=== PATIENT | female | born 1960 | race African-American/Black ===

== ENCOUNTER 2017-08-05 10:32 | Emergency (ER) | payer OTHER ==
[~2017-08-05] VITALS: Ht 190.5 cm; Wt 130.0 kg
[2017-08-05] MEDS ORDERED: PREDNISONE 20MG TABLET PO STA (12:08)
[2017-08-05] MEDS ORDERED: IPRATROPIUM BROMIDE (0.02%) 0.5MG/2.5ML NEB HHN STA ×2 (12:08→13:06)
[2017-08-05] MEDS ORDERED: ALBUTEROL (0.083%) 2.5MG/3ML NEB HHN STA ×2 (12:08→13:06)
[2017-08-05] MEDS ORDERED: KETOROLAC 60MG/2ML VIAL IM ONE (12:30)
[2017-08-05 13:53] VITALS: BP 150/98
== END 2017-08-05 13:55 | disposition home or self-care (01) ==
LOC: ER 10:38
DX: M25.571 Pain in right ankle and joints of right foot (principal); M79.671 Pain in right foot; J45.901 Unspecified asthma with (acute) exacerbation; I10 Essential (primary) hypertension; F12.10 Cannabis abuse, uncomplicated; Z88.0 Allergy status to penicillin; X50.1XXA Overexertion from prolonged static or awkward postures, initial encounter; Y93.89 Activity, other specified; Y92.89 Other specified places as the place of occurrence of the external cause; Y99.8 Other external cause status
CPT/HCPCS: 73600; 73620; 94640; 96372; 99284; J1885; J7512; J7611; Z7610

== ENCOUNTER 2018-03-04 11:34 | Emergency (ER) | payer OTHER ==
[~2018-03-04] VITALS: Ht 182.9 cm; Wt 131.0 kg
[2018-03-04] MEDS ORDERED: IPRATROPIUM BROMIDE (0.02%) 0.5MG/2.5ML NEB HHN STA (11:59)
[2018-03-04] MEDS ORDERED: PREDNISONE 20MG TABLET PO STA (11:59)
[2018-03-04] MEDS ORDERED: ALBUTEROL (0.083%) 2.5MG/3ML NEB HHN STA (11:59)
[2018-03-04] MEDS ORDERED: CEFTRIAXONE SODIUM 1 G/VIAL IM ONE (12:00)
[2018-03-04] MEDS ORDERED: LIDOCAINE HCL 1% 20ML VIAL (Pyxis) INJ INFIL ONE (12:30)
[2018-03-04] MEDS ORDERED: LIDOCAINE HCL/PF 1% 10 MG/ML 5ML VIAL IJ ONE (12:45)
[2018-03-04 13:52] VITALS: BP 165/87
== END 2018-03-04 14:18 | disposition home or self-care (01) ==
LOC: ER 12:00
DX: J45.901 Unspecified asthma with (acute) exacerbation (principal); L03.312 Cellulitis of back [any part except buttock and flank]; I10 Essential (primary) hypertension; F17.200 Nicotine dependence, unspecified, uncomplicated; Z88.0 Allergy status to penicillin
CPT/HCPCS: 71045; 94640; 96372; 99283; J0696; J3490; J7512; J7611; Z7610

== ENCOUNTER 2018-03-13 15:27 | Emergency (ER) | payer OTHER ==
[~2018-03-13] VITALS: Ht 188 cm; Wt 137.0 kg
[2018-03-13] MEDS ORDERED: IPRATROPIUM/ALBUTEROL 0.5-3(2.5)MG/3ML NEB HHN ONE (16:15)
[2018-03-13] MEDS ORDERED: KETOROLAC 60MG/2ML VIAL IM ONE (18:15)
[2018-03-13] MEDS ORDERED: ACETAMINOPHEN 500MG TABLET PO ONE (18:15)
[2018-03-13 18:44] VITALS: BP 138/84
== END 2018-03-13 18:45 | disposition home or self-care (01) ==
LOC: ER 15:27
DX: J45.901 Unspecified asthma with (acute) exacerbation (principal); M54.9 Dorsalgia, unspecified; I10 Essential (primary) hypertension; F17.200 Nicotine dependence, unspecified, uncomplicated; Z88.0 Allergy status to penicillin
CPT/HCPCS: 94640; 96372; 99283; J1885; J7620

== ENCOUNTER 2018-07-16 13:05 | Emergency (ER) | payer OTHER ==
[~2018-07-16] VITALS: Ht 190.5 cm; Wt 148.0 kg
[2018-07-16] MEDS ORDERED: ALBUTEROL (0.083%) 2.5MG/3ML NEB HHN STA (15:03)
[2018-07-16] MEDS ORDERED: METHYLPREDNISOLONE SOD SUCC 125 MG/2 ML VIAL IV STA (15:03)
[2018-07-16] MEDS ORDERED: IPRATROPIUM BROMIDE (0.02%) 0.5MG/2.5ML NEB HHN STA (15:03)
[2018-07-16] MEDS ORDERED: ENALAPRIL 2.5MG/2ML VIAL 2ML IV ONE (15:15)
[2018-07-16] MEDS ORDERED: MAGNESIUM 2 G PREMIX 50 ML IV ONE (15:15)
[2018-07-16] MEDS ORDERED: HYDRALAZINE 20MG/ML VIAL IV ONE (15:45)
[2018-07-16 16:33] LABS: BASOPHILS % 0.4 % (0.0-2.0); EOSINOPHILS % 0.3 % (0.0-5.0); HEMATOCRIT. 43.8 % (36.0-48.0); HEMOGLOBIN. 14.9 g/dL (12.0-16.0); LYMPHOCYTES % 22.5 % (20.0-50.0); MEAN CORPUSCULAR HEMOGLOBIN 32.2 pg (28.0-32.0); MEAN CORPUSCULAR VOLUME 94.8 fL (81.0-99.0); MONOCYTES % 7.3 % (2.0-8.0); NEUTROPHILS % 69.5 % (40.0-76.0); PLATELET 279 x1000/uL (130-400); RED BLOOD CELL COUNT 4.62 mill/uL (4.2-5.4); RED CELL DISTRIBUTION WIDTH 13.8 % (11.6-14.6)
[2018-07-16 16:36] LABS: CHLORIDE 103 mEq/L (98-107)
[2018-07-16 16:38] LABS: PROTHROMBIN TIME 9.9 sec (9.1-11.1)
[2018-07-16 18:33] VITALS: BP 163/97
== END 2018-07-16 19:13 | disposition home or self-care (01) ==
LOC: ER 17:01
DX: J45.901 Unspecified asthma with (acute) exacerbation (principal); I10 Essential (primary) hypertension; F12.10 Cannabis abuse, uncomplicated; I45.10 Unspecified right bundle-branch block; R73.9 Hyperglycemia, unspecified; E66.01 Morbid (severe) obesity due to excess calories; G89.29 Other chronic pain; M25.562 Pain in left knee; M25.561 Pain in right knee; Z68.41 Body mass index [BMI] 40.0-44.9, adult; Z88.0 Allergy status to penicillin
CPT/HCPCS: 36415; 71045; 73562; 80053; 83880; 84484; 85025; 85610; 85730; 93005; 94644; 96365; 96375; 99285; J0360; J2930; J3475; J3490; J7611

== ENCOUNTER 2018-09-09 07:12 | Inpatient (IN) | payer OTHER ==
[~2018-09-09] VITALS: Ht 170.2 cm; Wt 147.4 kg
[2018-09-09] MEDS ORDERED: IPRATROPIUM BROMIDE (0.02%) 0.5MG/2.5ML NEB HHN STA (07:49)
[2018-09-09] MEDS ORDERED: ALBUTEROL (0.083%) 2.5MG/3ML NEB HHN STA (07:49)
[2018-09-09] MEDS ORDERED: AZITHROMYCIN 500 MG TABLET PO STA (07:49)
[2018-09-09] MEDS ORDERED: METHYLPREDNISOLONE SOD SUCC 125 MG/2 ML VIAL IV STA (07:49)
[2018-09-09 08:12] LABS: CHLORIDE 96 mEq/L (98-107)
[2018-09-09 08:14] LABS: BASOPHILS % 0.4 % (0.0-2.0); HEMATOCRIT. 40.5 % (36.0-48.0); HEMOGLOBIN. 14.1 g/dL (12.0-16.0); LYMPHOCYTES % 14.3 % (20.0-50.0); MEAN CORPUSCULAR HEMOGLOBIN 32.1 pg (28.0-32.0); MEAN CORPUSCULAR VOLUME 92.2 fL (81.0-99.0); MEAN PLATELET VOLUME 8.6 fl (7.4-10.4); MONOCYTES % 11.9 % (2.0-8.0); NEUTROPHILS % 73.4 % (40.0-76.0); PLATELET 215 x1000/uL (130-400)
[2018-09-09] MEDS ORDERED: ASPIRIN 325MG TABLET PO NR (09:00)
[2018-09-09] MEDS ORDERED: POTASSIUM CHLORIDE 20MEQ TABLET SR PO NR (09:00)
[2018-09-09] MEDS ORDERED: IOHEXOL-350 100 ML BOTTLE ONE (10:22)
[2018-09-09 11:11] LABS: CLARITY URINE CLEAR (CLEAR); COLOR URINE YELLOW (YELLOW); KETONES URINE NEGATIVE (NEGATIVE); LEUKOCYTE ESTERASE URINE NEGATIVE (NEGATIVE); NITRITE URINE NEGATIVE (NEGATIVE); OCCULT BLOOD URINE NEGATIVE (NEGATIVE); PROTEIN URINE NEGATIVE (NEGATIVE); SPECIFIC GRAVITY URINE 1.006 (1.005-1.030); UROBILINOGEN URINE 0.2 E.U./dL (0.2-1.0)
[2018-09-09] MEDS ORDERED: IPRATROPIUM/ALBUTEROL 0.5-3(2.5)MG/3ML NEB HHN PRN (14:45)
[2018-09-09] MEDS ORDERED: ACETAMINOPHEN 325MG TABLET PO PRN (15:00)
[2018-09-09] MEDS ORDERED: ONDANSETRON HCL 4MG/2ML INJ IV PRN (15:00)
[2018-09-09] MEDS ORDERED: DOCUSATE SODIUM 100MG CAPSULE PO PRN (15:00)
[2018-09-09 17:49] LABS: CREATINE KINASE MB FRACTION 2.3 ng/mL (0.5-3.6)
[2018-09-09] MEDS: METHYLPREDNISOLONE SOD SUCC 40 MG/ML VIAL IV SCH (19:51)
[2018-09-09] MEDS: CLONIDINE 0.1MG TABLET PO PRN (19:55)
[2018-09-09] MEDS: IPRATROPIUM/ALBUTEROL 0.5-3(2.5)MG/3ML NEB HHN SCH (21:24)
[2018-09-09] MEDS ORDERED: ALBU6.7H INH (22:20)
[2018-09-09] MEDS ORDERED: AMLO10TA80 PO (22:20)
[2018-09-09 22:33] VITALS: BP 176/106
[2018-09-09 22:40] VITALS: BP 176/106
[2018-09-09] MEDS: LORAZEPAM 0.5MG TABLET PO PRN (22:50)
[2018-09-10] VITALS (7 sets, daily range): BP systolic 157–172; BP diastolic 87–105
[2018-09-10 00:55] LABS: CLARITY URINE CLEAR (CLEAR); COLOR URINE YELLOW (YELLOW); KETONES URINE NEGATIVE (NEGATIVE); LEUKOCYTE ESTERASE URINE NEGATIVE (NEGATIVE); NITRITE URINE NEGATIVE (NEGATIVE); OCCULT BLOOD URINE NEGATIVE (NEGATIVE); PROTEIN URINE NEGATIVE (NEGATIVE); SPECIFIC GRAVITY URINE 1.036 (1.005-1.030); UROBILINOGEN URINE 0.2 E.U./dL (0.2-1.0)
[2018-09-10 01:17] LABS: *AMPHETAMINES SCREEN URINE NEGATIVE (NEGATIVE); *BARBITURATES SCREEN URINE NEGATIVE (NEGATIVE); *BENZODIAZEPINES SCREEN URINE NEGATIVE (NEGATIVE)
[2018-09-10 01:18] LABS: CANNABINOID URINE SCREEN NEGATIVE (NEGATIVE); METHADONE URINE SCREEN NEGATIVE (NEGATIVE); OPIATES URINE SCREEN NEGATIVE (NEGATIVE); PHENCYCLIDINE URINE SCREEN NEGATIVE (NEGATIVE)
[2018-09-10 01:19] LABS: *COCAINE SCREEN URINE PRESUMTIVE POSITIVE (NEGATIVE)
[2018-09-10] MEDS: IPRATROPIUM/ALBUTEROL 0.5-3(2.5)MG/3ML NEB HHN SCH ×5 (01:39→20:00)
[2018-09-10] MEDS: CLONIDINE 0.1MG TABLET PO PRN ×3 (02:47→20:47)
[2018-09-10] MEDS: METHYLPREDNISOLONE SOD SUCC 40 MG/ML VIAL IV SCH ×3 (02:47→17:25)
[2018-09-10 09:52] LABS: BASOPHILS % 0.2 % (0.0-2.0); HEMATOCRIT. 40.9 % (36.0-48.0); HEMOGLOBIN. 13.7 g/dL (12.0-16.0); LYMPHOCYTES % 10.8 % (20.0-50.0); MEAN CORPUSCULAR VOLUME 95.8 fL (81.0-99.0); MEAN PLATELET VOLUME 9.2 fl (7.4-10.4); MONOCYTES % 4.9 % (2.0-8.0); NEUTROPHILS % 84.1 % (40.0-76.0); PLATELET 211 x1000/uL (130-400); RED BLOOD CELL COUNT 4.27 mill/uL (4.2-5.4); RED CELL DISTRIBUTION WIDTH 14.2 % (11.6-14.6)
[2018-09-10 10:05] LABS: CHLORIDE 95 mEq/L (98-107)
[2018-09-10 10:10] LABS: PHOSPHORUS 3.4 mg/dL (2.5-4.9)
[2018-09-10] MEDS ORDERED: SODIUM CHLORIDE 0.9% 1,000 ML IV ONE (11:15)
[2018-09-10 11:32] LABS: BG BASE EXCESS -1.6 mmol/L (-2.0-2.0); BG CARBOXYHEMOGLOBIN 0.5 % (0.5-1.5); BG DEOXYHEMOGLOBIN 5.9 % (0.0-5.0); BG FRACTION INSPIRED OXYGEN 21; BG HCO3 ACT 23.2 mmol/L (22.0-26.0); BG METHEMOGLOBIN 0.1 % (0.0-1.5); BG OXYGEN SATURATION 94.1 % (92.0-98.5); BG OXYHEMOGLOBIN 93.5 % (94.0-97.0); BG PCO2 39.5 mmHg (35.0-45.0); BG PH 7.386 (7.350-7.450); BG PO2 72.1 mmHg (75.0-100.0); BG SAMPLE SITE LEFT RADIAL; BG TOTAL HEMOGLOBIN 14.1 g/dL (12.0-18.0); BG VENT MODE ROOM AIR
[2018-09-10] MEDS ORDERED: DEXTROSE 50% WATER 50ML SYRINGE IV PRN (11:45)
[2018-09-10] MEDS: BLOOD SUGAR DIAGNOSTIC STRIP TEST SCH ×3 (12:04→20:36)
[2018-09-10] MEDS: INSULIN LISPRO 100 UNITS/ML SUBCUT SCH ×3 (12:10→20:48)
[2018-09-10] MEDS: LORAZEPAM 0.5MG TABLET PO PRN ×2 (12:10→18:57)
[2018-09-10] MEDS ORDERED: INSULIN LISPRO 100 UNITS/ML SUBCUT NR ×3 (13:57→22:00)
[2018-09-10] MEDS: SODIUM CHLORIDE 0.9% 1,000 ML IV SCH ×3 (17:01→23:31)
[2018-09-10] MEDS: HYDROCODONE/ACETAMINOPHEN 5/325MG TABLET PO PRN (20:47)
[2018-09-10] MEDS ORDERED: INSULIN GLARGINE UD 100 UNITS/ML SYR SUBCUT SCH (22:00)
[2018-09-11] VITALS (8 sets, daily range): BP systolic 123–170; BP diastolic 63–106
[2018-09-11] MEDS: METHYLPREDNISOLONE SOD SUCC 40 MG/ML VIAL IV SCH ×2 (01:28→10:35)
[2018-09-11] MEDS: SODIUM CHLORIDE 0.9% 1,000 ML IV SCH ×4 (01:28→20:36)
[2018-09-11] MEDS: BLOOD SUGAR DIAGNOSTIC STRIP TEST SCH ×4 (06:12→21:19)
[2018-09-11] MEDS: IPRATROPIUM/ALBUTEROL 0.5-3(2.5)MG/3ML NEB HHN SCH ×4 (07:52→19:49)
[2018-09-11] MEDS: HYDROCODONE/ACETAMINOPHEN 5/325MG TABLET PO PRN ×2 (08:52→18:16)
[2018-09-11] MEDS: CLONIDINE 0.1MG TABLET PO PRN ×2 (08:52→14:53)
[2018-09-11] MEDS: INSULIN LISPRO 100 UNITS/ML SUBCUT SCH ×4 (08:54→21:26)
[2018-09-11] MEDS: GUAIFENESIN-DM 200MG-20MG/10ML UDC PO PRN ×2 (13:22→21:26)
[2018-09-11] MEDS: BUDESONIDE 0.5MG/2ML NEB HHN SCH ×2 (15:16→19:49)
[2018-09-11] MEDS ORDERED: BUDESONIDE 0.5MG/2ML NEB ONE (15:51)
[2018-09-11] MEDS: DILTIAZEM HCL 60MG TABLET PO SCH (21:26)
[2018-09-11] MEDS ORDERED: INSULIN LISPRO 100 UNITS/ML SUBCUT NR (21:45)
[2018-09-11] MEDS ORDERED: INSULIN GLARGINE UD 100 UNITS/ML SYR SUBCUT SCH ×2 (22:00)
[2018-09-12] VITALS (8 sets, daily range): BP systolic 151–183; BP diastolic 84–102
[2018-09-12] MEDS: IPRATROPIUM/ALBUTEROL 0.5-3(2.5)MG/3ML NEB HHN SCH ×3 (00:16→20:04)
[2018-09-12] MEDS: CLONIDINE 0.1MG TABLET PO PRN ×3 (00:17→08:40)
[2018-09-12] MEDS: SODIUM CHLORIDE 0.9% 1,000 ML IV SCH (03:52)
[2018-09-12] MEDS: HYDROCODONE/ACETAMINOPHEN 5/325MG TABLET PO PRN ×3 (05:01→18:42)
[2018-09-12] MEDS: GUAIFENESIN-DM 200MG-20MG/10ML UDC PO PRN (05:02)
[2018-09-12] MEDS: BLOOD SUGAR DIAGNOSTIC STRIP TEST SCH ×4 (05:02→21:52)
[2018-09-12] MEDS: DILTIAZEM HCL 60MG TABLET PO SCH (05:02)
[2018-09-12 06:33] LABS: BASOPHILS % 0.3 % (0.0-2.0); HEMATOCRIT. 39.2 % (36.0-48.0); HEMOGLOBIN. 13.2 g/dL (12.0-16.0); LYMPHOCYTES % 22.9 % (20.0-50.0); MEAN CORPUSCULAR HEMOGLOBIN 31.7 pg (28.0-32.0); MEAN CORPUSCULAR VOLUME 93.8 fL (81.0-99.0); MEAN PLATELET VOLUME 9.2 fl (7.4-10.4); NEUTROPHILS % 65.8 % (40.0-76.0); PLATELET 212 x1000/uL (130-400); RED BLOOD CELL COUNT 4.17 mill/uL (4.2-5.4); RED CELL DISTRIBUTION WIDTH 14.1 % (11.6-14.6)
[2018-09-12 06:44] LABS: CHLORIDE 98 mEq/L (98-107)
[2018-09-12] MEDS ORDERED: PREDNISONE 20MG TABLET PO SCH (08:10)
[2018-09-12] MEDS: INSULIN LISPRO 100 UNITS/ML SUBCUT SCH ×4 (08:43→21:52)
[2018-09-12] MEDS ORDERED: TERBUTALINE SULFATE 1MG/ML VIAL SUBCUT NR (09:30)
[2018-09-12] MEDS: GUAIFENESIN/CODEINE 100-10MG/5ML UDC PO PRN ×2 (10:38→18:42)
[2018-09-12] MEDS ORDERED: LOSARTAN POTASSIUM 50 MG TABLET PO SCH (13:00)
[2018-09-12] MEDS: FUROSEMIDE 20MG TABLET PO SCH (13:13)
[2018-09-12] MEDS: DILTIAZEM HCL 90MG TABLET PO SCH ×2 (14:29→21:50)
[2018-09-12] MEDS: METHYLPREDNISOLONE SOD SUCC 40 MG/ML VIAL IV SCH (18:09)
[2018-09-12] MEDS: INSULIN GLARGINE UD 100 UNITS/ML SYR SUBCUT SCH (21:51)
[2018-09-13] VITALS: BP 182/97
[2018-09-13] MEDS: IPRATROPIUM/ALBUTEROL 0.5-3(2.5)MG/3ML NEB HHN SCH ×4 (01:33→20:08)
[2018-09-13 04:00] VITALS: BP 143/73
[2018-09-13] MEDS: DILTIAZEM HCL 90MG TABLET PO SCH ×3 (06:32→21:06)
[2018-09-13] MEDS: GUAIFENESIN/CODEINE 100-10MG/5ML UDC PO PRN (06:35)
[2018-09-13] MEDS: BLOOD SUGAR DIAGNOSTIC STRIP TEST SCH ×4 (06:49→21:08)
[2018-09-13 08:00] VITALS: BP 136/86
[2018-09-13] MEDS: FUROSEMIDE 20MG TABLET PO SCH (08:43)
[2018-09-13] MEDS: INSULIN LISPRO 100 UNITS/ML SUBCUT SCH ×7 (08:43→21:10)
[2018-09-13] MEDS: LOSARTAN POTASSIUM 50 MG TABLET PO SCH ×2 (08:44→21:05)
[2018-09-13] MEDS: HYDROCODONE/ACETAMINOPHEN 5/325MG TABLET PO PRN ×2 (09:10→21:07)
[2018-09-13] MEDS: METHYLPREDNISOLONE SOD SUCC 40 MG/ML VIAL IV SCH (09:26)
[2018-09-13] MEDS: INSULIN GLARGINE UD 100 UNITS/ML SYR SUBCUT SCH ×2 (10:30→21:09)
[2018-09-13 12:00] VITALS: BP 176/95
[2018-09-13 16:00] VITALS: BP 164/75
[2018-09-13] MEDS: PREDNISONE 20MG TABLET PO SCH (17:24)
[2018-09-13] MEDS: METFORMIN HCL 500MG TABLET PO SCH (18:55)
[2018-09-13] MEDS: GLIPIZIDE 5MG TABLET PO SCH (18:55)
[2018-09-13 20:00] VITALS: BP 132/81
[2018-09-13] MEDS: HYDRALAZINE HCL 50MG TABLET PO SCH (21:05)
[2018-09-13] MEDS: FLUTICASONE PROPIONATE 50MCG/SPRAY BOTTLE BOTHNSTRLS SCH (21:07)
[2018-09-14 00:12] VITALS: BP 149/89
[2018-09-14] MEDS: IPRATROPIUM/ALBUTEROL 0.5-3(2.5)MG/3ML NEB HHN SCH ×4 (02:15→20:11)
[2018-09-14 04:00] VITALS: BP 116/77
[2018-09-14] MEDS: DILTIAZEM HCL 90MG TABLET PO SCH ×3 (06:13→21:16)
[2018-09-14 08:00] VITALS: BP 162/99
[2018-09-14] MEDS: BLOOD SUGAR DIAGNOSTIC STRIP TEST SCH ×4 (08:08→21:28)
[2018-09-14] MEDS: INSULIN LISPRO 100 UNITS/ML SUBCUT SCH ×7 (08:08→21:17)
[2018-09-14] MEDS: FUROSEMIDE 20MG TABLET PO SCH (08:17)
[2018-09-14] MEDS: PREDNISONE 20MG TABLET PO SCH (08:17)
[2018-09-14] MEDS: LOSARTAN POTASSIUM 50 MG TABLET PO SCH ×2 (08:17→21:16)
[2018-09-14] MEDS: METFORMIN HCL 500MG TABLET PO SCH ×2 (08:17→18:04)
[2018-09-14] MEDS: GLIPIZIDE 5MG TABLET PO SCH ×2 (08:23→16:45)
[2018-09-14] MEDS: FLUTICASONE PROPIONATE 50MCG/SPRAY BOTTLE BOTHNSTRLS SCH ×2 (08:24→21:15)
[2018-09-14] MEDS: GUAIFENESIN/CODEINE 100-10MG/5ML UDC PO PRN (08:24)
[2018-09-14] MEDS: HYDROCODONE/ACETAMINOPHEN 5/325MG TABLET PO PRN (08:24)
[2018-09-14] MEDS: HYDRALAZINE HCL 50MG TABLET PO SCH ×2 (08:29→21:16)
[2018-09-14] MEDS: INSULIN GLARGINE UD 100 UNITS/ML SYR SUBCUT SCH ×3 (10:26→21:28)
[2018-09-14 12:00] VITALS: BP 178/96
[2018-09-14 16:00] VITALS: BP 155/95
[2018-09-14 20:00] VITALS: BP 170/96
[2018-09-15 00:31] VITALS: BP 145/80
[2018-09-15] MEDS: IPRATROPIUM/ALBUTEROL 0.5-3(2.5)MG/3ML NEB HHN SCH ×3 (02:02→14:21)
[2018-09-15 04:00] VITALS: BP 130/91
[2018-09-15] MEDS: DILTIAZEM HCL 90MG TABLET PO SCH ×2 (06:33→14:01)
[2018-09-15] MEDS: BLOOD SUGAR DIAGNOSTIC STRIP TEST SCH ×2 (06:37→12:40)
[2018-09-15 07:10] VITALS: BP 133/66
[2018-09-15] MEDS: FLUTICASONE PROPIONATE 50MCG/SPRAY BOTTLE BOTHNSTRLS SCH (08:30)
[2018-09-15] MEDS: FUROSEMIDE 20MG TABLET PO SCH (08:31)
[2018-09-15] MEDS: METFORMIN HCL 500MG TABLET PO SCH (08:31)
[2018-09-15] MEDS: LOSARTAN POTASSIUM 50 MG TABLET PO SCH (08:31)
[2018-09-15] MEDS: HYDRALAZINE HCL 50MG TABLET PO SCH (08:31)
[2018-09-15] MEDS: GLIPIZIDE 5MG TABLET PO SCH (08:32)
[2018-09-15] MEDS: INSULIN LISPRO 100 UNITS/ML SUBCUT SCH ×3 (08:34→13:04)
[2018-09-15] MEDS ORDERED: PREDNISONE 20MG TABLET PO SCH (09:00)
[2018-09-15] MEDS ORDERED: LINAGLIPTIN 5MG TABLET PO SCH (09:15)
[2018-09-15 09:27] LABS: CHLORIDE 92 mEq/L (98-107)
[2018-09-15 09:35] LABS: HEMATOCRIT. 47.1 % (36.0-48.0); HEMOGLOBIN. 15.6 g/dL (12.0-16.0); MEAN CORPUSCULAR VOLUME 93.3 fL (81.0-99.0); MEAN PLATELET VOLUME 9.2 fl (7.4-10.4); PLATELET 338 x1000/uL (130-400); RED BLOOD CELL COUNT 5.04 mill/uL (4.2-5.4); RED CELL DISTRIBUTION WIDTH 14.2 % (11.6-14.6)
[2018-09-15] MEDS: INSULIN GLARGINE UD 100 UNITS/ML SYR SUBCUT SCH (10:27)
[2018-09-15] MEDS ORDERED: BUDESONIDE 0.5MG/2ML NEB ONE (11:09)
[2018-09-15 12:00] VITALS: BP 120/57
[2018-09-15] MEDS ORDERED: INSULIN LISPRO 100 UNITS/ML SUBCUT SCH (12:40)
[2018-09-15 12:53] VITALS: BP 125/61
[2018-09-16 14:43] LABS: PLATELET ESTIMATE NORMAL
== END 2018-09-15 14:52 | disposition home or self-care (01) | DRG 816 ==
LOC: ER 07:59 → EDBEDREQ 10:30 → EDBEDREQTM 10:30 → 7WST 12:04 → EDBEDREQTM 12:06 → EDBEDREQ 12:06 → ENRESERV 19:33
PROVIDERS: ADMIT Internal Medicine; ATTEND Internal Medicine
DX: T40.5X1A Poisoning by cocaine, accidental (unintentional), initial encounter (principal); J96.00 Acute respiratory failure, unspecified whether with hypoxia or hypercapnia; E66.01 Morbid (severe) obesity due to excess calories; J68.0 Bronchitis and pneumonitis due to chemicals, gases, fumes and vapors; E87.6 Hypokalemia; I16.0 Hypertensive urgency; R07.89 Other chest pain; F14.10 Cocaine abuse, uncomplicated; E11.65 Type 2 diabetes mellitus with hyperglycemia; F17.200 Nicotine dependence, unspecified, uncomplicated; I10 Essential (primary) hypertension; Z60.2 Problems related to living alone; M71.21 Synovial cyst of popliteal space [Baker], right knee; T38.0X5A Adverse effect of glucocorticoids and synthetic analogues, initial encounter; Z79.899 Other long term (current) drug therapy; Y92.89 Other specified places as the place of occurrence of the external cause; Z91.19 Patient's noncompliance with other medical treatment and regimen; Z88.0 Allergy status to penicillin; Z88.8 Allergy status to other drugs, medicaments and biological substances; Z71.3 Dietary counseling and surveillance; Z71.51 Drug abuse counseling and surveillance of drug abuser
CPT/HCPCS: 36415; 36600; 71045; 71275; 80048; 80305; 82375; 82550; 82553; 82805; 82962; 83036; 83735; 83880; 84100; 84443; 84484; 93005; 93306; 93970; 94640; 96374; 99285; J1815; J2920; J2930; J3105; J7030; J7512; J7611; J7620; J7626; Q9967

== ENCOUNTER 2018-12-18 14:34 | Emergency (ER) | payer OTHER ==
[~2018-12-18] VITALS: Ht 190.5 cm; Wt 146.0 kg
[~2018-12-18 14:34] MED LIST: ALBU6.7H INH; AMLO10TA80 PO
[2018-12-18] MEDS ORDERED: IPRATROPIUM BROMIDE (0.02%) 0.5MG/2.5ML NEB HHN STA (16:22)
[2018-12-18] MEDS ORDERED: ALBUTEROL (0.083%) 2.5MG/3ML NEB HHN STA (16:22)
[2018-12-18] MEDS ORDERED: FUROSEMIDE 20MG/2ML VIAL IVP ONE (16:30)
[2018-12-18 16:42] LABS: BASOPHILS % 0.2 % (0.0-2.0); EOSINOPHILS % 0.1 % (0.0-5.0); HEMATOCRIT. 42.1 % (36.0-48.0); HEMOGLOBIN. 14.3 g/dL (12.0-16.0); LYMPHOCYTES % 8.4 % (20.0-50.0); MEAN CORPUSCULAR HEMOGLOBIN 31.7 pg (28.0-32.0); MEAN CORPUSCULAR VOLUME 93.3 fL (81.0-99.0); MEAN PLATELET VOLUME 9.6 fl (7.4-10.4); MONOCYTES % 4.1 % (2.0-8.0); NEUTROPHILS % 87.2 % (40.0-76.0); PLATELET 207 x1000/uL (130-400); RED BLOOD CELL COUNT 4.51 mill/uL (4.2-5.4); RED CELL DISTRIBUTION WIDTH 14.7 % (11.6-14.6)
[2018-12-18 16:46] LABS: CHLORIDE 100 mEq/L (98-107)
[2018-12-18] MEDS ORDERED: OXYCODONE HCL/ACETAMINOPHEN 5/325MG TABLET PO ONE (17:30)
[2018-12-18 18:20] VITALS: BP 158/88
== END 2018-12-18 18:30 | disposition home or self-care (01) ==
LOC: ER 14:34
DX: R60.0 Localized edema (principal); I87.2 Venous insufficiency (chronic) (peripheral); D72.829 Elevated white blood cell count, unspecified; E11.65 Type 2 diabetes mellitus with hyperglycemia; I11.0 Hypertensive heart disease with heart failure; I50.9 Heart failure, unspecified; J44.9 Chronic obstructive pulmonary disease, unspecified; I10 Essential (primary) hypertension; Z88.0 Allergy status to penicillin
CPT/HCPCS: 36415; 71045; 73610; 80053; 83880; 84484; 85025; 93005; 94640; 96374; 99284; J1940; J7611; Z7610

== ENCOUNTER 2019-01-01 11:03 | Emergency (ER) | payer OTHER ==
[~2019-01-01] VITALS: Ht 191.8 cm; Wt 160.1 kg
[2019-01-01 12:36] LABS: BASOPHILS % 0.5 % (0.0-2.0); EOSINOPHILS % 0.7 % (0.0-5.0); HEMATOCRIT. 40.1 % (36.0-48.0); HEMOGLOBIN. 13.7 g/dL (12.0-16.0); MEAN CORPUSCULAR HEMOGLOBIN 31.5 pg (28.0-32.0); MEAN CORPUSCULAR VOLUME 92.5 fL (81.0-99.0); MEAN PLATELET VOLUME 8.9 fl (7.4-10.4); MONOCYTES % 8.9 % (2.0-8.0); NEUTROPHILS % 68.9 % (40.0-76.0); PLATELET 245 x1000/uL (130-400); RED BLOOD CELL COUNT 4.33 mill/uL (4.2-5.4); RED CELL DISTRIBUTION WIDTH 14.6 % (11.6-14.6)
[2019-01-01 12:39] LABS: CLARITY URINE TURBID (CLEAR); KETONES URINE TRACE (NEGATIVE); LEUKOCYTE ESTERASE URINE 2+ (NEGATIVE); NITRITE URINE NEGATIVE (NEGATIVE); OCCULT BLOOD URINE NEGATIVE (NEGATIVE); PH URINE 5.5 (4.5-8.0); PROTEIN URINE 1+ (NEGATIVE); SPECIFIC GRAVITY URINE 1.027 (1.005-1.030)
[2019-01-01 12:43] LABS: COLOR URINE YELLOW (YELLOW)
[2019-01-01 12:46] LABS: CHLORIDE 105 mEq/L (98-107)
[2019-01-01] MEDS ORDERED: ALBUTEROL (0.083%) 2.5MG/3ML NEB HHN STA ×3 (12:47→17:02)
[2019-01-01] MEDS ORDERED: IPRATROPIUM BROMIDE (0.02%) 0.5MG/2.5ML NEB HHN STA (12:47)
[2019-01-01] MEDS ORDERED: FLUCONAZOLE 100MG TABLET PO ONE (13:00)
[2019-01-01] MEDS ORDERED: DEXAMETHASONE 10 MG/ML VIAL IV ONE (13:00)
[2019-01-01] MEDS ORDERED: IOHEXOL-350 100 ML BOTTLE ONE (15:39)
[2019-01-01] MEDS ORDERED: FUROSEMIDE 40MG/4ML VIAL IVP ONE (16:45)
[2019-01-01 18:44] VITALS: BP 147/81
== END 2019-01-01 19:07 | disposition home or self-care (01) ==
LOC: ER 11:48
DX: J45.901 Unspecified asthma with (acute) exacerbation (principal); J44.1 Chronic obstructive pulmonary disease with (acute) exacerbation; M71.21 Synovial cyst of popliteal space [Baker], right knee; M79.605 Pain in left leg; M79.604 Pain in right leg; R60.9 Edema, unspecified; E11.9 Type 2 diabetes mellitus without complications; I10 Essential (primary) hypertension; F17.200 Nicotine dependence, unspecified, uncomplicated; Z88.0 Allergy status to penicillin; Z88.6 Allergy status to analgesic agent
CPT/HCPCS: 36415; 71275; 80053; 81003; 83880; 84484; 85025; 85379; 93005; 93970; 94640; 96374; 96375; 99284; J1100; J1940; J7611; Q9967

== ENCOUNTER 2019-01-15 12:02 | Emergency (ER) | payer OTHER ==
[~2019-01-15] VITALS: Ht 167.6 cm; Wt 153.0 kg
[2019-01-15] MEDS ORDERED: ALBUTEROL (0.083%) 2.5MG/3ML NEB HHN STA (13:12)
[2019-01-15] MEDS ORDERED: IPRATROPIUM BROMIDE (0.02%) 0.5MG/2.5ML NEB HHN STA (13:12)
[2019-01-15 14:36] LABS: CHLORIDE 97 mEq/L (98-107)
[2019-01-15 14:39] LABS: PROTHROMBIN TIME 10.4 sec (9.6-11.0)
[2019-01-15 14:44] LABS: BASOPHILS % 0.4 % (0.0-2.0); EOSINOPHILS % 0.2 % (0.0-5.0); HEMATOCRIT. 40.7 % (36.0-48.0); HEMOGLOBIN. 14.3 g/dL (12.0-16.0); MEAN CORPUSCULAR VOLUME 93.6 fL (81.0-99.0); MEAN PLATELET VOLUME 10.2 fl (7.4-10.4); MONOCYTES % 8.1 % (2.0-8.0); NEUTROPHILS % 69.3 % (40.0-76.0); PLATELET 225 x1000/uL (130-400); RED BLOOD CELL COUNT 4.34 mill/uL (4.2-5.4); RED CELL DISTRIBUTION WIDTH 14.7 % (11.6-14.6)
[2019-01-15] MEDS ORDERED: FUROSEMIDE 40MG/4ML VIAL IVP ONE (15:45)
[2019-01-15] MEDS ORDERED: INSULIN REGULAR (HUMULIN R) 300UNITS/3ML SUBCUT ONE ×2 (15:49→19:15)
[2019-01-15] MEDS ORDERED: MAGNESIUM 2 G PREMIX 50 ML IV ONE (16:15)
[2019-01-15] MEDS ORDERED: METHYLPREDNISOLONE SOD SUCC 125 MG/2 ML VIAL IV ONE (16:15)
[2019-01-15] MEDS: SODIUM CHLORIDE 0.9% 1,000 ML IV NR ×2 (16:26→16:47)
[2019-01-16 00:01] VITALS: BP 175/95
== END 2019-01-16 00:01 | disposition short-term general hospital (02) ==
LOC: ER 12:02
DX: J44.1 Chronic obstructive pulmonary disease with (acute) exacerbation (principal); R60.0 Localized edema; R06.02 Shortness of breath; E87.6 Hypokalemia; D72.829 Elevated white blood cell count, unspecified; E11.65 Type 2 diabetes mellitus with hyperglycemia; I11.9 Hypertensive heart disease without heart failure; I87.2 Venous insufficiency (chronic) (peripheral); Z88.0 Allergy status to penicillin; Z88.6 Allergy status to analgesic agent
CPT/HCPCS: 36415; 71045; 80053; 82962; 83880; 84484; 85025; 85610; 93005; 93970; 94644; 96365; 96366; 96372; 96375; 99285; J1815; J1940; J2930; J3475; J7611; Z7610

== ENCOUNTER 2019-01-31 17:33 | Emergency (ER) | payer OTHER ==
[~2019-01-31] VITALS: Ht 190.5 cm; Wt 135.0 kg
[2019-01-31] MEDS ORDERED: IPRATROPIUM BROMIDE (0.02%) 0.5MG/2.5ML NEB HHN STA (23:42)
[2019-01-31] MEDS ORDERED: METHYLPREDNISOLONE SOD SUCC 125 MG/2 ML VIAL IV STA (23:42)
[2019-01-31] MEDS ORDERED: ALBUTEROL (0.083%) 2.5MG/3ML NEB HHN STA (23:42)
[2019-01-31] MEDS ORDERED: HYDROCODONE/ACETAMINOPHEN 5/325MG TABLET PO ONE (23:45)
[2019-01-31] MEDS ORDERED: MAGNESIUM 2 G PREMIX 50 ML IV ONE (23:45)
[2019-02-01 00:01] LABS: BASOPHILS % 0.3 % (0.0-2.0); EOSINOPHILS % 1.4 % (0.0-5.0); HEMATOCRIT. 38.4 % (36.0-48.0); HEMOGLOBIN. 13.2 g/dL (12.0-16.0); LYMPHOCYTES % 18.1 % (20.0-50.0); MEAN CORPUSCULAR HEMOGLOBIN 32.1 pg (28.0-32.0); MEAN CORPUSCULAR VOLUME 92.9 fL (81.0-99.0); MEAN PLATELET VOLUME 9.9 fl (7.4-10.4); MONOCYTES % 7.5 % (2.0-8.0); NEUTROPHILS % 72.7 % (40.0-76.0); PLATELET 249 x1000/uL (130-400); RED BLOOD CELL COUNT 4.13 mill/uL (4.2-5.4); RED CELL DISTRIBUTION WIDTH 13.9 % (11.6-14.6)
[2019-02-01 00:08] LABS: CHLORIDE 99 mEq/L (98-107)
[2019-02-01] MEDS ORDERED: POTASSIUM CHLORIDE 20MEQ TABLET SR PO STA (00:23)
[2019-02-01 02:30] VITALS: BP 154/79
== END 2019-02-01 02:43 | disposition home or self-care (01) ==
LOC: ER 17:33
DX: J44.1 Chronic obstructive pulmonary disease with (acute) exacerbation (principal); R60.0 Localized edema; M79.89 Other specified soft tissue disorders; J45.909 Unspecified asthma, uncomplicated; E11.9 Type 2 diabetes mellitus without complications; I11.9 Hypertensive heart disease without heart failure; Z88.0 Allergy status to penicillin; Z88.6 Allergy status to analgesic agent; Z79.899 Other long term (current) drug therapy
CPT/HCPCS: 36415; 71045; 80053; 83880; 84484; 85025; 93005; 94640; 96365; 96375; 99284; J2930; J3475; J7611

== ENCOUNTER 2019-02-06 16:15 | Inpatient (IN) | payer OTHER ==
[~2019-02-06] VITALS: Ht 167.6 cm; Wt 158.8 kg
[2019-02-06] MEDS ORDERED: FUROSEMIDE 40MG/4ML VIAL IV ONE (18:15)
[2019-02-06] MEDS ORDERED: ASPIRIN 81MG TABLET PO ONE (18:15)
[2019-02-06] MEDS ORDERED: NITROGLYCERIN OINT 1GM/INCH UDPKT TD ONE (18:15)
[2019-02-06 18:55] LABS: BASOPHILS % 0.5 % (0.0-2.0); EOSINOPHILS % 0.5 % (0.0-5.0); HEMATOCRIT. 40.2 % (36.0-48.0); HEMOGLOBIN. 13.6 g/dL (12.0-16.0); LYMPHOCYTES % 22.7 % (20.0-50.0); MEAN CORPUSCULAR HEMOGLOBIN 31.4 pg (28.0-32.0); MEAN CORPUSCULAR VOLUME 92.6 fL (81.0-99.0); MEAN PLATELET VOLUME 9.1 fl (7.4-10.4); MONOCYTES % 7.7 % (2.0-8.0); NEUTROPHILS % 68.6 % (40.0-76.0); PLATELET 250 x1000/uL (130-400); RED BLOOD CELL COUNT 4.34 mill/uL (4.2-5.4); RED CELL DISTRIBUTION WIDTH 14.8 % (11.6-14.6)
[2019-02-06 19:00] LABS: CHLORIDE 101 mEq/L (98-107)
[2019-02-06 19:02] LABS: PARTIAL THROMBOPLASTIN TIME 22.5 sec (23.4-31.0); PROTHROMBIN TIME 10.1 sec (9.6-11.0)
[2019-02-06] MEDS ORDERED: POTASSIUM CHLORIDE 20MEQ TABLET SR PO ONE (19:15)
[2019-02-06] MEDS ORDERED: ALBUTEROL (0.083%) 2.5MG/3ML NEB HHN STA (20:11)
[2019-02-06] MEDS ORDERED: METHYLPREDNISOLONE SOD SUCC 125 MG/2 ML VIAL IV STA (20:11)
[2019-02-06] MEDS ORDERED: IPRATROPIUM BROMIDE (0.02%) 0.5MG/2.5ML NEB HHN STA (20:11)
[2019-02-06] MEDS ORDERED: ONDANSETRON HCL 4MG/2ML INJ IV STA (21:19)
[2019-02-06] MEDS ORDERED: MORPHINE SULFATE 4 MG/ML CPJ (NOT FOR IM USE) IV STA (21:19)
[2019-02-06] MEDS ORDERED: IPRATROPIUM/ALBUTEROL 0.5-3(2.5)MG/3ML NEB HHN PRN (22:00)
[2019-02-06] MEDS ORDERED: ZOLPIDEM TARTRATE 5MG TABLET PO PRN (22:00)
[2019-02-06] MEDS ORDERED: DEXTROSE 50% WATER 50ML SYRINGE IV PRN (22:00)
[2019-02-06] MEDS ORDERED: ONDANSETRON HCL 4MG/2ML INJ IV PRN (22:00)
[2019-02-06] MEDS ORDERED: INSULIN GLARGINE UD 100 UNITS/ML SYR SUBCUT SCH (22:00)
[2019-02-06] MEDS ORDERED: INSULIN LISPRO 100 UNITS/ML SUBCUT NR (23:08)
[2019-02-06 23:31] LABS: CLARITY URINE CLOUDY (CLEAR); COLOR URINE YELLOW (YELLOW); KETONES URINE TRACE (NEGATIVE); LEUKOCYTE ESTERASE URINE NEGATIVE (NEGATIVE); NITRITE URINE NEGATIVE (NEGATIVE); OCCULT BLOOD URINE NEGATIVE (NEGATIVE); PROTEIN URINE TRACE (NEGATIVE); SPECIFIC GRAVITY URINE 1.033 (1.005-1.030); UROBILINOGEN URINE 0.2 E.U./dL (0.2-1.0)
[2019-02-06 23:59] LABS: *AMPHETAMINES SCREEN URINE NEGATIVE (NEGATIVE); *BARBITURATES SCREEN URINE NEGATIVE (NEGATIVE); *BENZODIAZEPINES SCREEN URINE NEGATIVE (NEGATIVE); *COCAINE SCREEN URINE PRESUMTIVE POSITIVE (NEGATIVE); CANNABINOID URINE SCREEN NEGATIVE (NEGATIVE); METHADONE URINE SCREEN NEGATIVE (NEGATIVE); OPIATES URINE SCREEN NEGATIVE (NEGATIVE); PHENCYCLIDINE URINE SCREEN NEGATIVE (NEGATIVE)
[2019-02-07] VITALS (7 sets, daily range): BP systolic 124–167; BP diastolic 62–103
[2019-02-07] MEDS ORDERED: INSULIN GLARGINE UD 100 UNITS/ML SYR SUBCUT SCH ×2 (01:00→22:00)
[2019-02-07] MEDS: BLOOD SUGAR DIAGNOSTIC STRIP TEST SCH ×4 (06:10→21:11)
[2019-02-07] MEDS: INSULIN LISPRO 100 UNITS/ML SUBCUT SCH ×7 (06:18→21:00)
[2019-02-07] MEDS ORDERED: INSULIN LISPRO 100 UNITS/ML SUBCUT NR (06:45)
[2019-02-07] MEDS: FUROSEMIDE 40MG/4ML VIAL IVP SCH ×2 (08:20→17:31)
[2019-02-07] MEDS: ENOXAPARIN 40MG/0.4ML SYR SUBCUT SCH (13:15)
[2019-02-07 17:28] LABS: BASOPHILS % 0.2 % (0.0-2.0); HEMATOCRIT. 38.6 % (36.0-48.0); HEMOGLOBIN. 13.4 g/dL (12.0-16.0); LYMPHOCYTES % 7.3 % (20.0-50.0); MEAN CORPUSCULAR VOLUME 91.9 fL (81.0-99.0); MEAN PLATELET VOLUME 9.4 fl (7.4-10.4); MONOCYTES % 7.2 % (2.0-8.0); NEUTROPHILS % 85.3 % (40.0-76.0); PLATELET 207 x1000/uL (130-400); RED CELL DISTRIBUTION WIDTH 14.3 % (11.6-14.6)
[2019-02-07 17:33] LABS: CHLORIDE 98 mEq/L (98-107)
[2019-02-07] MEDS ORDERED: BUDESONIDE 0.5MG/2ML NEB HHN SCH (18:00)
[2019-02-07] MEDS ORDERED: IPRATROPIUM/ALBUTEROL 0.5-3(2.5)MG/3ML NEB HHN SCH (18:00)
[2019-02-07] MEDS: AMLODIPINE 5MG TABLET PO SCH (21:11)
[2019-02-07] MEDS: INSULIN GLARGINE UD 100 UNITS/ML SYR SUBCUT SCH (21:12)
[2019-02-07] MEDS: ACETAMINOPHEN 325MG TABLET PO PRN (21:18)
[2019-02-08] MEDS: ENOXAPARIN 40MG/0.4ML SYR SUBCUT SCH (06:21)
[2019-02-08] MEDS: BLOOD SUGAR DIAGNOSTIC STRIP TEST SCH (06:22)
[2019-02-08] MEDS: INSULIN LISPRO 100 UNITS/ML SUBCUT SCH (06:50)
[2019-02-08] MEDS ORDERED: INSULIN LISPRO 100 UNITS/ML SUBCUT SCH (07:40)
[2019-02-08] MEDS: FUROSEMIDE 40MG/4ML VIAL IVP SCH (08:12)
[2019-02-08] MEDS: AMLODIPINE 5MG TABLET PO SCH (08:12)
[2019-02-08 09:00] VITALS: BP 134/94
[2019-02-08] MEDS: INSULIN GLARGINE UD 100 UNITS/ML SYR SUBCUT SCH (09:33)
[2019-02-08 09:36] LABS: BASOPHILS % 0.5 % (0.0-2.0); EOSINOPHILS % 0.8 % (0.0-5.0); HEMATOCRIT. 39.3 % (36.0-48.0); HEMOGLOBIN. 13.8 g/dL (12.0-16.0); MEAN CORPUSCULAR HEMOGLOBIN 32.4 pg (28.0-32.0); MEAN CORPUSCULAR VOLUME 92.5 fL (81.0-99.0); MEAN PLATELET VOLUME 9.5 fl (7.4-10.4); MONOCYTES % 9.9 % (2.0-8.0); NEUTROPHILS % 53.8 % (40.0-76.0); PLATELET 194 x1000/uL (130-400); RED BLOOD CELL COUNT 4.25 mill/uL (4.2-5.4); RED CELL DISTRIBUTION WIDTH 14.7 % (11.6-14.6)
[2019-02-08] MEDS: ACETAMINOPHEN 325MG TABLET PO PRN (09:42)
[2019-02-08 09:45] LABS: CHLORIDE 98 mEq/L (98-107)
[2019-02-08] MEDS ORDERED: POTASSIUM CHLORIDE 20MEQ TABLET SR PO NR (10:15)
[2019-02-08] MEDS ORDERED: POTASSIUM CHLORIDE INJ 40 MEQ in DEXT 5% WATER 500 ML IV NR (12:00)
== END 2019-02-08 11:37 | disposition left against medical advice (07) | DRG 816 ==
LOC: ER 16:38 → 8WST 21:17 → EDBEDREQ 21:19 → EDBEDREQTM 21:19 → ENRESERV 22:04
PROVIDERS: ADMIT Internal Medicine; ATTEND Internal Medicine
DX: T40.5X1A Poisoning by cocaine, accidental (unintentional), initial encounter (principal); J96.00 Acute respiratory failure, unspecified whether with hypoxia or hypercapnia; I50.33 Acute on chronic diastolic (congestive) heart failure; E11.65 Type 2 diabetes mellitus with hyperglycemia; E44.1 Mild protein-calorie malnutrition; J68.0 Bronchitis and pneumonitis due to chemicals, gases, fumes and vapors; I11.0 Hypertensive heart disease with heart failure; F14.90 Cocaine use, unspecified, uncomplicated; E87.6 Hypokalemia; T38.0X5A Adverse effect of glucocorticoids and synthetic analogues, initial encounter; F17.210 Nicotine dependence, cigarettes, uncomplicated; Z53.21 Procedure and treatment not carried out due to patient leaving prior to being seen by health care provider; J44.1 Chronic obstructive pulmonary disease with (acute) exacerbation; E66.01 Morbid (severe) obesity due to excess calories; I25.10 Atherosclerotic heart disease of native coronary artery without angina pectoris; Z79.899 Other long term (current) drug therapy; Z88.0 Allergy status to penicillin; Z88.8 Allergy status to other drugs, medicaments and biological substances; Y92.89 Other specified places as the place of occurrence of the external cause; Z68.43 Body mass index [BMI] 50.0-59.9, adult; Z71.89 Other specified counseling; Z71.6 Tobacco abuse counseling
CPT/HCPCS: 36415; 71045; 80048; 80305; 81003; 82962; 83880; 84484; 85379; 93005; 93306; 93970; 94640; 94644; 96374; 96375; 99285; J1650; J1815; J1940; J2270; J2405; J2930; J3480; J7060; J7611; J7620; J7626

== ENCOUNTER 2019-02-21 15:47 | Inpatient (IN) | payer OTHER ==
[~2019-02-21] VITALS: Ht 190.5 cm; Wt 157.4 kg
[2019-02-21] MEDS ORDERED: METHYLPREDNISOLONE SOD SUCC 125 MG/2 ML VIAL IV STA (16:30)
[2019-02-21] MEDS ORDERED: IPRATROPIUM BROMIDE (0.02%) 0.5MG/2.5ML NEB HHN STA ×2 (16:30→17:53)
[2019-02-21] MEDS ORDERED: ALBUTEROL (0.083%) 2.5MG/3ML NEB HHN STA ×2 (16:30→17:53)
[2019-02-21 16:49] LABS: BASOPHILS % 0.9 % (0.0-2.0); EOSINOPHILS % 0.5 % (0.0-5.0); HEMATOCRIT. 39.2 % (36.0-48.0); HEMOGLOBIN. 13.5 g/dL (12.0-16.0); MEAN CORPUSCULAR HEMOGLOBIN 32.3 pg (28.0-32.0); MEAN CORPUSCULAR VOLUME 93.7 fL (81.0-99.0); MEAN PLATELET VOLUME 9.1 fl (7.4-10.4); MONOCYTES % 7.5 % (2.0-8.0); NEUTROPHILS % 70.1 % (40.0-76.0); PLATELET 245 x1000/uL (130-400); RED BLOOD CELL COUNT 4.19 mill/uL (4.2-5.4); RED CELL DISTRIBUTION WIDTH 14.8 % (11.6-14.6)
[2019-02-21 16:55] LABS: CHLORIDE 107 mEq/L (98-107)
[2019-02-21 16:56] LABS: PROTHROMBIN TIME 10.1 sec (9.6-11.0)
[2019-02-21] MEDS ORDERED: DOXYCYCLINE HYCLATE 100MG CAPSULE PO ONE (18:00)
[2019-02-21] MEDS ORDERED: AMLODIPINE 10MG TABLET PO ONE (18:45)
[2019-02-21] MEDS ORDERED: ACETAMINOPHEN 500MG TABLET PO ONE (19:00)
[2019-02-21] MEDS ORDERED: LORAZEPAM 0.5MG TABLET PO PRN (22:30)
[2019-02-21] MEDS ORDERED: HYDROCODONE/ACETAMINOPHEN 5/325MG TABLET PO PRN (22:30)
[2019-02-21] MEDS ORDERED: ACETAMINOPHEN 325MG TABLET PO PRN (22:30)
[2019-02-21] MEDS ORDERED: ONDANSETRON HCL 4MG/2ML INJ IV PRN (22:30)
[2019-02-22 01:08] LABS: CREATINE KINASE MB FRACTION 1.7 ng/mL (0.5-3.6)
[2019-02-22 01:30] VITALS: BP 182/98
[2019-02-22] MEDS ORDERED: FUROSEMIDE 40MG/4ML VIAL IVP SCH (02:00)
[2019-02-22] MEDS: IPRATROPIUM/ALBUTEROL 0.5-3(2.5)MG/3ML NEB INH PRN ×2 (02:05→12:40)
[2019-02-22] MEDS ORDERED: DEXTROSE 50% WATER 50ML SYRINGE IV PRN (03:15)
[2019-02-22 04:00] VITALS: BP 173/91
[2019-02-22 05:38] LABS: CLARITY URINE CLEAR (CLEAR); COLOR URINE YELLOW (YELLOW); KETONES URINE NEGATIVE (NEGATIVE); LEUKOCYTE ESTERASE URINE NEGATIVE (NEGATIVE); NITRITE URINE NEGATIVE (NEGATIVE); OCCULT BLOOD URINE NEGATIVE (NEGATIVE); PROTEIN URINE NEGATIVE (NEGATIVE); SPECIFIC GRAVITY URINE 1.011 (1.005-1.030); UROBILINOGEN URINE 0.2 E.U./dL (0.2-1.0)
[2019-02-22 05:57] LABS: *AMPHETAMINES SCREEN URINE NEGATIVE (NEGATIVE); *BARBITURATES SCREEN URINE NEGATIVE (NEGATIVE); *BENZODIAZEPINES SCREEN URINE NEGATIVE (NEGATIVE); *COCAINE SCREEN URINE PRESUMTIVE POSITIVE (NEGATIVE)
[2019-02-22 05:58] LABS: CANNABINOID URINE SCREEN NEGATIVE (NEGATIVE); OPIATES URINE SCREEN NEGATIVE (NEGATIVE); PHENCYCLIDINE URINE SCREEN NEGATIVE (NEGATIVE)
[2019-02-22] MEDS: BLOOD SUGAR DIAGNOSTIC STRIP TEST SCH ×4 (06:42→20:50)
[2019-02-22] MEDS: INSULIN LISPRO 100 UNITS/ML SUBCUT SCH ×4 (06:47→20:53)
[2019-02-22 08:00] VITALS: BP 158/89
[2019-02-22 08:46] LABS: METHADONE URINE SCREEN NEGATIVE (NEGATIVE)
[2019-02-22 12:00] VITALS: BP 141/74
[2019-02-22 16:00] VITALS: BP 159/87
[2019-02-22 16:42] LABS: CREATINE KINASE 71 IU/L (26-192)
[2019-02-22 16:43] LABS: CREATINE KINASE MB FRACTION 2.5 ng/mL (0.5-3.6)
[2019-02-22 17:22] LABS: T4 FREE 0.76 ng/dL (0.76-1.46)
[2019-02-22] MEDS: FUROSEMIDE 40MG/4ML VIAL IVP SCH (18:07)
[2019-02-22] MEDS: METHYLPREDNISOLONE SOD SUCC 40 MG/ML VIAL IV SCH (18:07)
[2019-02-22] MEDS: AMLODIPINE 5MG TABLET PO SCH (18:08)
[2019-02-22 20:00] VITALS: BP 153/96
[2019-02-23] VITALS: BP_SYST 124; BP_DIAS 59; BP_DIAS 60
[2019-02-23] MEDS: METHYLPREDNISOLONE SOD SUCC 40 MG/ML VIAL IV SCH ×2 (00:24→09:31)
[2019-02-23 00:45] LABS: CREATINE KINASE MB FRACTION 2.1 ng/mL (0.5-3.6)
[2019-02-23 04:00] VITALS: BP 131/67
[2019-02-23] MEDS: FUROSEMIDE 40MG/4ML VIAL IVP SCH ×2 (06:04→16:59)
[2019-02-23] MEDS: BLOOD SUGAR DIAGNOSTIC STRIP TEST SCH ×4 (06:04→21:00)
[2019-02-23] MEDS: INSULIN LISPRO 100 UNITS/ML SUBCUT SCH ×5 (06:12→23:40)
[2019-02-23] MEDS ORDERED: INSULIN LISPRO 100 UNITS/ML SUBCUT ONE (07:15)
[2019-02-23 08:00] VITALS: BP 159/101
[2019-02-23 09:16] LABS: CREATINE KINASE MB FRACTION 1.5 ng/mL (0.5-3.6)
[2019-02-23] MEDS: METFORMIN HCL 500MG TABLET PO SCH ×2 (09:32→16:59)
[2019-02-23] MEDS: AMLODIPINE 5MG TABLET PO SCH (09:32)
[2019-02-23 12:00] VITALS: BP 147/96
[2019-02-23] MEDS: IPRATROPIUM/ALBUTEROL 0.5-3(2.5)MG/3ML NEB INH PRN (15:02)
[2019-02-23 16:00] VITALS: BP 154/62
[2019-02-23 20:00] VITALS: BP 177/68
[2019-02-23] MEDS: CLONIDINE 0.1MG TABLET PO PRN (21:31)
[2019-02-23] MEDS: IPRATROPIUM/ALBUTEROL 0.5-3(2.5)MG/3ML NEB HHN SCH (21:43)
[2019-02-23] MEDS ORDERED: INSULIN GLARGINE UD 100 UNITS/ML SYR SUBCUT SCH (23:30)
[2019-02-23] MEDS ORDERED: INSULIN LISPRO 100 UNITS/ML SUBCUT NR (23:30)
[2019-02-24] VITALS: BP 123/65
[2019-02-24] MEDS: IPRATROPIUM/ALBUTEROL 0.5-3(2.5)MG/3ML NEB HHN SCH ×4 (02:29→19:57)
[2019-02-24 04:00] VITALS: BP 134/70
[2019-02-24 06:05] LABS: BASOPHILS % 0.2 % (0.0-2.0); HEMATOCRIT. 37.3 % (36.0-48.0); HEMOGLOBIN. 12.9 g/dL (12.0-16.0); LYMPHOCYTES % 19.2 % (20.0-50.0); MEAN CORPUSCULAR VOLUME 92.8 fL (81.0-99.0); MEAN PLATELET VOLUME 9.5 fl (7.4-10.4); MONOCYTES % 11.2 % (2.0-8.0); NEUTROPHILS % 69.4 % (40.0-76.0); PLATELET 253 x1000/uL (130-400); RED BLOOD CELL COUNT 4.02 mill/uL (4.2-5.4); RED CELL DISTRIBUTION WIDTH 14.5 % (11.6-14.6)
[2019-02-24] MEDS: FUROSEMIDE 40MG/4ML VIAL IVP SCH (06:46)
[2019-02-24] MEDS: BLOOD SUGAR DIAGNOSTIC STRIP TEST SCH ×3 (06:46→21:48)
[2019-02-24] MEDS: METFORMIN HCL 500MG TABLET PO SCH ×2 (06:46→17:15)
[2019-02-24 06:47] LABS: CHLORIDE 94 mEq/L (98-107)
[2019-02-24] MEDS: INSULIN LISPRO 100 UNITS/ML SUBCUT SCH ×4 (06:59→21:49)
[2019-02-24] MEDS ORDERED: PREDNISONE 20MG TABLET PO SCH (09:00)
[2019-02-24] MEDS ORDERED: PREDNISOLONE 15 MG/5 ML ORAL SYRINGE PO SCH (09:00)
[2019-02-24] MEDS: AMLODIPINE 5MG TABLET PO SCH (12:05)
[2019-02-24] MEDS ORDERED: POTASSIUM CHLORIDE 20MEQ TABLET SR PO NR (13:15)
[2019-02-24] MEDS ORDERED: FUROSEMIDE 40MG/4ML VIAL IVP SCH (17:15)
[2019-02-24 20:00] VITALS: BP 136/79
[2019-02-24] MEDS: INSULIN GLARGINE UD 100 UNITS/ML SYR SUBCUT SCH (21:51)
[2019-02-24] MEDS ORDERED: INSULIN LISPRO 100 UNITS/ML SUBCUT NR (22:45)
[2019-02-25] VITALS: BP 137/79
[2019-02-25] MEDS: IPRATROPIUM/ALBUTEROL 0.5-3(2.5)MG/3ML NEB HHN SCH ×2 (01:26→10:55)
[2019-02-25 04:00] VITALS: BP 153/108
[2019-02-25] MEDS: BLOOD SUGAR DIAGNOSTIC STRIP TEST SCH ×2 (06:45→11:38)
[2019-02-25 07:37] LABS: CHLORIDE 97 mEq/L (98-107)
[2019-02-25 07:46] VITALS: BP 157/103
[2019-02-25] MEDS: METFORMIN HCL 500MG TABLET PO SCH (08:30)
[2019-02-25] MEDS: CLONIDINE 0.1MG TABLET PO PRN (08:32)
[2019-02-25] MEDS: AMLODIPINE 5MG TABLET PO SCH (08:32)
[2019-02-25] MEDS: INSULIN LISPRO 100 UNITS/ML SUBCUT SCH ×4 (08:34→11:47)
[2019-02-25] MEDS ORDERED: PREDNISONE 20MG TABLET PO SCH (09:00)
[2019-02-25] MEDS: INSULIN GLARGINE UD 100 UNITS/ML SYR SUBCUT SCH (10:13)
[2019-02-25 12:00] VITALS: BP 130/88
[2019-02-25 12:40] VITALS: BP 130/88
== END 2019-02-25 13:35 | disposition home or self-care (01) | DRG 816 ==
LOC: ER 15:47 → EDBEDREQTM 18:23 → EDBEDREQ 18:23 → ENRESERV 22:43 → 5WST 02-22 01:11
PROVIDERS: ADMIT Internal Medicine; ATTEND Internal Medicine
DX: T40.5X1A Poisoning by cocaine, accidental (unintentional), initial encounter (principal); J96.00 Acute respiratory failure, unspecified whether with hypoxia or hypercapnia; I50.43 Acute on chronic combined systolic (congestive) and diastolic (congestive) heart failure; J44.1 Chronic obstructive pulmonary disease with (acute) exacerbation; E11.65 Type 2 diabetes mellitus with hyperglycemia; E66.01 Morbid (severe) obesity due to excess calories; J45.901 Unspecified asthma with (acute) exacerbation; I11.0 Hypertensive heart disease with heart failure; M79.89 Other specified soft tissue disorders; I45.10 Unspecified right bundle-branch block; E78.5 Hyperlipidemia, unspecified; F17.210 Nicotine dependence, cigarettes, uncomplicated; J68.0 Bronchitis and pneumonitis due to chemicals, gases, fumes and vapors; F14.90 Cocaine use, unspecified, uncomplicated; T38.0X5A Adverse effect of glucocorticoids and synthetic analogues, initial encounter; Z91.19 Patient's noncompliance with other medical treatment and regimen; Z79.84 Long term (current) use of oral hypoglycemic drugs; Y92.89 Other specified places as the place of occurrence of the external cause; Z71.6 Tobacco abuse counseling; Z68.41 Body mass index [BMI] 40.0-44.9, adult
CPT/HCPCS: 36415; 71045; 78582; 80048; 80061; 80305; 81003; 82550; 82553; 82962; 83036; 83880; 84439; 84443; 84484; 85379; 93005; 94640; 96374; 99285; A9558; J1815; J1940; J2920; J2930; J7512; J7611; J7620

== ENCOUNTER 2019-04-18 15:36 | Inpatient (IN) | payer OTHER ==
[~2019-04-18] VITALS: Ht 193 cm; Wt 156.9 kg
[2019-04-18] MEDS: TOLNAFTATE 1% CREAM 15GM TOP SCH (22:00)
[2019-04-18] MEDS ORDERED: METHYLPREDNISOLONE SOD SUCC 125 MG/2 ML VIAL IV STA (22:27)
[2019-04-18] MEDS ORDERED: ALBUTEROL (0.083%) 2.5MG/3ML NEB HHN STA (22:27)
[2019-04-18] MEDS: METRONIDAZOLE 0.75% VAG GEL 70GM VG SCH (22:30)
[2019-04-18 23:03] LABS: EOSINOPHILS % 0.6 % (0.0-5.0); HEMATOCRIT. 41.1 % (36.0-48.0); HEMOGLOBIN. 14.1 g/dL (12.0-16.0); LYMPHOCYTES % 24.2 % (20.0-50.0); MEAN CORPUSCULAR HEMOGLOBIN 32.4 pg (28.0-32.0); MONOCYTES % 9.9 % (2.0-8.0); NEUTROPHILS % 64.3 % (40.0-76.0); PLATELET 226 x1000/uL (130-400); RED BLOOD CELL COUNT 4.37 mill/uL (4.2-5.4); RED CELL DISTRIBUTION WIDTH 14.2 % (11.6-14.6)
[2019-04-18 23:08] LABS: CHLORIDE 97 mEq/L (98-107)
[2019-04-19] MEDS ORDERED: INSULIN REGULAR (HUMULIN R) 300UNITS/3ML SUBCUT ONE (00:15)
[2019-04-19] MEDS ORDERED: SODIUM CHLORIDE 0.9% 1,000 ML IV ONE (00:15)
[2019-04-19] MEDS: CLOTRIMAZOLE 1% CREAM 30GM TOP SCH ×2 (02:46→21:00)
[2019-04-19] MEDS: METRONIDAZOLE 0.75% VAG GEL 70GM VG SCH (02:47)
[2019-04-19] MEDS: TOLNAFTATE 1% CREAM 15GM TOP SCH (02:52)
[2019-04-19] MEDS ORDERED: ZOLPIDEM TARTRATE 5MG TABLET PO PRN (08:15)
[2019-04-19] MEDS ORDERED: IPRATROPIUM/ALBUTEROL 0.5-3(2.5)MG/3ML NEB NEB PRN (08:15)
[2019-04-19] MEDS ORDERED: DOCUSATE SODIUM 100MG CAPSULE PO PRN (08:15)
[2019-04-19] MEDS ORDERED: ONDANSETRON HCL 4MG/2ML INJ IV PRN (08:15)
[2019-04-19] MEDS ORDERED: ACETAMINOPHEN 325MG TABLET PO PRN (08:15)
[2019-04-19] MEDS ORDERED: DEXTROSE 50% WATER 50ML SYRINGE IV PRN (08:15)
[2019-04-19] MEDS ORDERED: GUAIFENESIN 200MG/10ML SUGAR FREE UDC PO PRN (08:15)
[2019-04-19] MEDS ORDERED: NITROGLYCERIN 0.4MG TABLET SL SL PRN (08:15)
[2019-04-19] MEDS ORDERED: MAGNESIUM/ALUMINUM HYDROXIDE/SIMETHICONE 30ML UDC PO PRN (08:15)
[2019-04-19] MEDS: INSULIN LISPRO 100 UNITS/ML SUBCUT SCH ×6 (08:20→20:49)
[2019-04-19] MEDS: CLONIDINE 0.1MG TABLET PO PRN ×2 (09:08→14:31)
[2019-04-19] MEDS ORDERED: LIDOCAINE HCL/PF 1% 2ML VIAL ONE (09:27)
[2019-04-19 10:31] LABS: BG BASE EXCESS -0.7 mmol/L (-2.0-2.0); BG CARBOXYHEMOGLOBIN 0.8 % (0.5-1.5); BG DEOXYHEMOGLOBIN 5.4 % (0.0-5.0); BG FRACTION INSPIRED OXYGEN 21; BG METHEMOGLOBIN 0.2 % (0.0-1.5); BG OXYGEN SATURATION 94.5 % (92.0-98.5); BG OXYHEMOGLOBIN 93.6 % (94.0-97.0); BG PCO2 40.1 mmHg (35.0-45.0); BG PH 7.395 (7.350-7.450); BG PO2 72.8 mmHg (75.0-100.0); BG SAMPLE SITE RIGHT BRACHIAL; BG TOTAL HEMOGLOBIN 14.6 g/dL (12.0-18.0); BG VENT MODE ROOM AIR
[2019-04-19] MEDS: IPRATROPIUM/ALBUTEROL 0.5-3(2.5)MG/3ML NEB HHN SCH ×3 (10:40→20:51)
[2019-04-19] MEDS: AMLODIPINE 10MG TABLET PO SCH (11:00)
[2019-04-19 11:21] LABS: CHLORIDE 94 mEq/L (98-107)
[2019-04-19 12:00] VITALS: BP 162/91
[2019-04-19] MEDS: BLOOD SUGAR DIAGNOSTIC STRIP TEST SCH ×3 (13:00→20:50)
[2019-04-19 13:07] VITALS: BP 162/91
[2019-04-19] MEDS: ASCORBIC ACID 500 MG TABLET PO SCH ×2 (14:32→20:48)
[2019-04-19] MEDS: GUAIFENESIN/DM 600MG/30MG ER TAB 12HR PO SCH ×2 (14:32→20:48)
[2019-04-19] MEDS: FAMOTIDINE 20MG TABLET PO SCH ×2 (14:32→20:48)
[2019-04-19] MEDS: ZINC SULFATE 220 MG ( 50 ) CAPSULE PO SCH (14:32)
[2019-04-19] MEDS: ENOXAPARIN 40MG/0.4ML SYR SUBCUT SCH (14:32)
[2019-04-19] MEDS: ASPIRIN 325MG EC TABLET PO SCH (14:32)
[2019-04-19] MEDS ORDERED: FURO-151 PO (15:13)
[2019-04-19 16:00] VITALS: BP 114/81
[2019-04-19] MEDS: LEVOFLOXACIN 500MG PREMIX 100 ML IV SCH (17:39)
[2019-04-19 20:00] VITALS: BP 125/72
[2019-04-19] MEDS: INSULIN GLARGINE UD 100 UNITS/ML SYR SUBCUT SCH (23:18)
[2019-04-20] VITALS: BP 130/73
[2019-04-20] MEDS: IPRATROPIUM/ALBUTEROL 0.5-3(2.5)MG/3ML NEB HHN SCH ×5 (00:20→15:23)
[2019-04-20 04:00] VITALS: BP 133/77
[2019-04-20] MEDS: BLOOD SUGAR DIAGNOSTIC STRIP TEST SCH ×2 (06:20→14:29)
[2019-04-20] MEDS: ENOXAPARIN 40MG/0.4ML SYR SUBCUT SCH (06:34)
[2019-04-20 08:00] VITALS: BP 152/98
[2019-04-20] MEDS: INSULIN LISPRO 100 UNITS/ML SUBCUT SCH ×4 (08:14→14:31)
[2019-04-20] MEDS: TOLNAFTATE 1% CREAM 15GM TOP SCH (09:00)
[2019-04-20] MEDS: CLOTRIMAZOLE 1% CREAM 30GM TOP SCH (09:00)
[2019-04-20] MEDS: ASCORBIC ACID 500 MG TABLET PO SCH (09:34)
[2019-04-20] MEDS: FAMOTIDINE 20MG TABLET PO SCH (09:34)
[2019-04-20] MEDS: ZINC SULFATE 220 MG ( 50 ) CAPSULE PO SCH (09:34)
[2019-04-20] MEDS: GUAIFENESIN/DM 600MG/30MG ER TAB 12HR PO SCH (09:34)
[2019-04-20] MEDS: AMLODIPINE 10MG TABLET PO SCH (09:35)
[2019-04-20] MEDS: ASPIRIN 325MG EC TABLET PO SCH (09:36)
[2019-04-20] MEDS: INSULIN GLARGINE UD 100 UNITS/ML SYR SUBCUT SCH (11:40)
[2019-04-20 11:41] VITALS: BP 154/81
[2019-04-20 14:30] VITALS: BP 145/74
[2019-04-20] MEDS: LEVOFLOXACIN 500MG PREMIX 100 ML IV SCH (15:00)
[2019-04-20 16:06] VITALS: BP 145/74
[2019-04-20] MEDS ORDERED: INSULIN GLARGINE UD 100 UNITS/ML SYR SUBCUT SCH (22:00)
== END 2019-04-20 18:07 | disposition home or self-care (01) | DRG 140 ==
LOC: ER 15:36 → 6WST 04-19 05:24 → EDBEDREQDT 04-19 05:29 → EDBEDREQ 04-19 05:29 → EDBEDREQTM 04-19 05:29 → ENRESERV 04-19 07:07
PROVIDERS: ADMIT Internal Medicine; ATTEND Internal Medicine
DX: J44.1 Chronic obstructive pulmonary disease with (acute) exacerbation (principal); J96.91 Respiratory failure, unspecified with hypoxia; E11.65 Type 2 diabetes mellitus with hyperglycemia; I11.0 Hypertensive heart disease with heart failure; E66.01 Morbid (severe) obesity due to excess calories; I50.9 Heart failure, unspecified; E87.1 Hypo-osmolality and hyponatremia; Z79.4 Long term (current) use of insulin; Z79.899 Other long term (current) drug therapy; Z91.11 Patient's noncompliance with dietary regimen; Z91.14 Patient's other noncompliance with medication regimen; Z68.41 Body mass index [BMI] 40.0-44.9, adult
CPT/HCPCS: 36415; 36600; 71045; 80061; 82010; 82375; 82805; 82962; 83036; 83880; 84484; 93005; 93970; 94640; 96374; 99285; J1650; J1815; J1956; J2930; J3490; J7030; J7040; J7611; J7620

== ENCOUNTER 2019-05-18 10:22 | Inpatient (IN) | payer OTHER ==
[~2019-05-18] VITALS: Ht 190.5 cm; Wt 129.4 kg
[2019-05-18] MEDS ORDERED: ONDANSETRON HCL 4MG/2ML INJ IV STA (10:58)
[2019-05-18] MEDS ORDERED: METHYLPREDNISOLONE SOD SUCC 125 MG/2 ML VIAL IV STA (10:58)
[2019-05-18] MEDS ORDERED: MORPHINE SULFATE 4 MG/ML CPJ (NOT FOR IM USE) IV STA (10:58)
[2019-05-18] MEDS ORDERED: IPRATROPIUM/ALBUTEROL 0.5-3(2.5)MG/3ML NEB HHN ONE (11:00)
[2019-05-18] MEDS ORDERED: MAGNESIUM 2 G PREMIX 50 ML IV ONE (11:00)
[2019-05-18] MEDS ORDERED: LEVOFLOXACIN 500MG PREMIX 100 ML IV ONE (11:00)
[2019-05-18 11:29] LABS: BG BASE EXCESS 2.4 mmol/L (-2.0-2.0); BG CARBOXYHEMOGLOBIN 1.7 % (0.5-1.5); BG HCO3 ACT 26.9 mmol/L (22.0-26.0); BG METHEMOGLOBIN 0.2 % (0.0-1.5); BG OXYGEN SATURATION 95.9 % (92.0-98.5); BG OXYHEMOGLOBIN 94.1 % (94.0-97.0); BG PCO2 41.2 mmHg (35.0-45.0); BG PH 7.433 (7.350-7.450); BG SAMPLE SITE RIGHT RADIAL; BG TOTAL HEMOGLOBIN 15.6 g/dL (12.0-18.0); BG VENT MODE ROOM AIR
[2019-05-18 11:57] LABS: BASOPHILS % 0.5 % (0.0-2.0); EOSINOPHILS % 0.5 % (0.0-5.0); HEMATOCRIT. 45.9 % (36.0-48.0); HEMOGLOBIN. 15.6 g/dL (12.0-16.0); LYMPHOCYTES % 22.8 % (20.0-50.0); MEAN CORPUSCULAR HEMOGLOBIN 31.7 pg (28.0-32.0); MEAN CORPUSCULAR VOLUME 92.9 fL (81.0-99.0); MEAN PLATELET VOLUME 10.1 fl (7.4-10.4); NEUTROPHILS % 68.2 % (40.0-76.0); PLATELET 215 x1000/uL (130-400); RED BLOOD CELL COUNT 4.94 mill/uL (4.2-5.4); RED CELL DISTRIBUTION WIDTH 13.8 % (11.6-14.6)
[2019-05-18 12:05] LABS: PROTHROMBIN TIME 9.9 sec (9.6-11.0)
[2019-05-18 12:08] LABS: CHLORIDE 94 mEq/L (98-107)
[2019-05-18 12:15] LABS: ETHANOL BLOOD < 10 mg/dL
[2019-05-18 12:34] LABS: CLARITY URINE CLEAR (CLEAR); COLOR URINE YELLOW (YELLOW); KETONES URINE NEGATIVE (NEGATIVE); LEUKOCYTE ESTERASE URINE NEGATIVE (NEGATIVE); NITRITE URINE NEGATIVE (NEGATIVE); OCCULT BLOOD URINE NEGATIVE (NEGATIVE); PROTEIN URINE NEGATIVE (NEGATIVE); SPECIFIC GRAVITY URINE 1.034 (1.005-1.030); UROBILINOGEN URINE 0.2 E.U./dL (0.2-1.0)
[2019-05-18 13:03] LABS: *AMPHETAMINES SCREEN URINE NEGATIVE (NEGATIVE); *BARBITURATES SCREEN URINE NEGATIVE (NEGATIVE); *BENZODIAZEPINES SCREEN URINE NEGATIVE (NEGATIVE); *COCAINE SCREEN URINE PRESUMTIVE POSITIVE (NEGATIVE); METHADONE URINE SCREEN NEGATIVE (NEGATIVE); PHENCYCLIDINE URINE SCREEN NEGATIVE (NEGATIVE)
[2019-05-18 13:07] LABS: CANNABINOID URINE SCREEN NEGATIVE (NEGATIVE); OPIATES URINE SCREEN NEGATIVE (NEGATIVE)
[2019-05-18] MEDS ORDERED: MAGNESIUM/ALUMINUM HYDROXIDE/SIMETHICONE 30ML UDC PO ONE (14:00)
[2019-05-18] MEDS ORDERED: ONDANSETRON HCL 4MG/2ML INJ IV ONE (14:00)
[2019-05-18] MEDS ORDERED: MORPHINE SULFATE 4 MG/ML CPJ (NOT FOR IM USE) IV ONE (14:00)
[2019-05-18] MEDS ORDERED: FAMOTIDINE 20MG/2ML VIAL IV ONE (14:00)
[2019-05-18] MEDS ORDERED: INSULIN REGULAR (HUMULIN R) 300UNITS/3ML SUBCUT ONE (14:15)
[2019-05-18 16:00] VITALS: BP 188/97
[2019-05-18 18:30] VITALS: BP 188/97
[2019-05-18] MEDS ORDERED: CLONIDINE 0.1MG TABLET PO PRN (19:15)
[2019-05-18] MEDS ORDERED: ACETAMINOPHEN 325MG TABLET PO PRN (19:15)
[2019-05-18] MEDS ORDERED: ONDANSETRON HCL 4MG/2ML INJ IV PRN (19:15)
[2019-05-18] MEDS ORDERED: LORAZEPAM 0.5MG TABLET PO PRN (19:15)
[2019-05-18] MEDS ORDERED: DOCUSATE SODIUM 100MG CAPSULE PO PRN (19:15)
[2019-05-18] MEDS ORDERED: POTASSIUM CHLORIDE 20MEQ TABLET SR PO NR (19:40)
[2019-05-18 20:00] VITALS: BP 185/98
[2019-05-18] MEDS: AMLODIPINE 5MG TABLET PO SCH (20:38)
[2019-05-18] MEDS: HYDROCODONE/ACETAMINOPHEN 5/325MG TABLET PO PRN (20:40)
[2019-05-18] MEDS: METHYLPREDNISOLONE SOD SUCC 40 MG/ML VIAL IV SCH (20:40)
[2019-05-18] MEDS: FUROSEMIDE 40MG/4ML VIAL IV SCH (20:41)
[2019-05-18] MEDS ORDERED: DEXTROSE 50% WATER 50ML SYRINGE IV PRN (21:15)
[2019-05-18] MEDS ORDERED: INSULIN LISPRO 100 UNITS/ML SUBCUT NR (21:45)
[2019-05-18] MEDS: INSULIN GLARGINE UD 100 UNITS/ML SYR SUBCUT SCH (21:51)
[2019-05-18] MEDS: BLOOD SUGAR DIAGNOSTIC STRIP TEST SCH (21:58)
[2019-05-18] MEDS: INSULIN LISPRO 100 UNITS/ML SUBCUT SCH (23:27)
[2019-05-19] VITALS: BP 162/100
[2019-05-19] MEDS: ACETYLCYSTEINE 100MG/ML 10% VIAL 4ML INH SCH ×2 (00:14→15:36)
[2019-05-19] MEDS: GUAIFENESIN 200MG/10ML SUGAR FREE UDC PO PRN ×2 (03:59→16:21)
[2019-05-19 04:00] VITALS: BP 160/99
[2019-05-19] MEDS: METHYLPREDNISOLONE SOD SUCC 40 MG/ML VIAL IV SCH (05:21)
[2019-05-19] MEDS: IPRATROPIUM/ALBUTEROL 0.5-3(2.5)MG/3ML NEB HHN PRN ×2 (05:50→07:49)
[2019-05-19] MEDS: BLOOD SUGAR DIAGNOSTIC STRIP TEST SCH ×4 (06:44→20:46)
[2019-05-19] MEDS: INSULIN LISPRO 100 UNITS/ML SUBCUT SCH ×4 (06:46→20:57)
[2019-05-19 06:51] LABS: CHLORIDE 90 mEq/L (98-107)
[2019-05-19 06:53] LABS: BASOPHILS % 0.3 % (0.0-2.0); HEMATOCRIT. 43.5 % (36.0-48.0); HEMOGLOBIN. 14.9 g/dL (12.0-16.0); LYMPHOCYTES % 12.5 % (20.0-50.0); MEAN CORPUSCULAR HEMOGLOBIN 31.7 pg (28.0-32.0); MEAN CORPUSCULAR VOLUME 92.8 fL (81.0-99.0); MEAN PLATELET VOLUME 10.4 fl (7.4-10.4); MONOCYTES % 6.4 % (2.0-8.0); NEUTROPHILS % 80.8 % (40.0-76.0); PLATELET 214 x1000/uL (130-400); RED BLOOD CELL COUNT 4.68 mill/uL (4.2-5.4); RED CELL DISTRIBUTION WIDTH 13.4 % (11.6-14.6)
[2019-05-19] MEDS ORDERED: INSULIN LISPRO 100 UNITS/ML SUBCUT SCH ×2 (07:10→12:10)
[2019-05-19 08:00] VITALS: BP 145/84
[2019-05-19] MEDS: GLIPIZIDE 5MG TABLET PO SCH ×2 (09:44→16:21)
[2019-05-19] MEDS: FUROSEMIDE 40MG/4ML VIAL IV SCH (09:44)
[2019-05-19] MEDS: AMLODIPINE 5MG TABLET PO SCH ×2 (09:44→20:46)
[2019-05-19] MEDS: INSULIN GLARGINE UD 100 UNITS/ML SYR SUBCUT SCH ×2 (09:46→21:35)
[2019-05-19] MEDS: BUDESONIDE 0.5MG/2ML NEB HHN SCH ×2 (11:52→21:02)
[2019-05-19] MEDS: IPRATROPIUM/ALBUTEROL 0.5-3(2.5)MG/3ML NEB HHN SCH ×3 (11:52→21:02)
[2019-05-19 12:00] VITALS: BP 130/80
[2019-05-19] MEDS: HYDROCODONE/ACETAMINOPHEN 5/325MG TABLET PO PRN ×2 (13:01→18:46)
[2019-05-19 16:00] VITALS: BP 119/69
[2019-05-19 20:00] VITALS: BP 143/93
[2019-05-20 04:00] VITALS: BP 140/63
[2019-05-20] MEDS: IPRATROPIUM/ALBUTEROL 0.5-3(2.5)MG/3ML NEB HHN SCH ×6 (04:24→21:05)
[2019-05-20] MEDS: GUAIFENESIN 200MG/10ML SUGAR FREE UDC PO PRN (05:30)
[2019-05-20 06:08] LABS: HEMOGLOBIN. 14.8 g/dL (12.0-16.0); MEAN CORPUSCULAR HEMOGLOBIN 31.5 pg (28.0-32.0); MEAN CORPUSCULAR VOLUME 91.9 fL (81.0-99.0); MEAN PLATELET VOLUME 10.1 fl (7.4-10.4); PLATELET 226 x1000/uL (130-400); RED BLOOD CELL COUNT 4.68 mill/uL (4.2-5.4); RED CELL DISTRIBUTION WIDTH 13.6 % (11.6-14.6)
[2019-05-20] MEDS: BLOOD SUGAR DIAGNOSTIC STRIP TEST SCH ×4 (06:14→21:13)
[2019-05-20] MEDS: GLIPIZIDE 5MG TABLET PO SCH ×2 (06:19→16:32)
[2019-05-20] MEDS: INSULIN LISPRO 100 UNITS/ML SUBCUT SCH ×7 (06:21→21:41)
[2019-05-20 07:02] LABS: CHLORIDE 95 mEq/L (98-107)
[2019-05-20] MEDS ORDERED: FLUT9.9S BOTHNSTRLS (07:40)
[2019-05-20] MEDS ORDERED: LANTUSUD SUBCUT (07:40)
[2019-05-20] MEDS ORDERED: FURO40TA5 MT (07:40)
[2019-05-20] MEDS ORDERED: ALBU18HF2 IH (07:40)
[2019-05-20] MEDS ORDERED: INSLIS SUBCUT (07:40)
[2019-05-20] MEDS ORDERED: IPRA3AMP9 HHN (07:40)
[2019-05-20] MEDS ORDERED: GLIP5TAB12 PO (07:40)
[2019-05-20] MEDS ORDERED: AMLO5TAB88 PO (07:40)
[2019-05-20] MEDS ORDERED: DEXTL PO (07:40)
[2019-05-20 08:00] VITALS: BP 150/101
[2019-05-20] MEDS: AMLODIPINE 5MG TABLET PO SCH ×2 (08:39→21:41)
[2019-05-20] MEDS: FUROSEMIDE 40MG/4ML VIAL IV SCH (08:40)
[2019-05-20] MEDS: PANTOPRAZOLE 40MG DR TABLET PO SCH (08:40)
[2019-05-20] MEDS: PREDNISONE 20MG TABLET PO SCH ×2 (08:40→16:32)
[2019-05-20] MEDS: POTASSIUM CHLORIDE INJ 40 MEQ in DEXT 5% WATER 250 ML IV NR ×2 (09:00→09:08)
[2019-05-20] MEDS: HYDROCODONE/ACETAMINOPHEN 5/325MG TABLET PO PRN ×2 (09:07→18:15)
[2019-05-20] MEDS: ACETYLCYSTEINE 100MG/ML 10% VIAL 4ML INH SCH (09:50)
[2019-05-20] MEDS: BUDESONIDE 0.5MG/2ML NEB HHN SCH (09:52)
[2019-05-20] MEDS ORDERED: POTASSIUM CHLORIDE 20MEQ/PACKET PO NR (10:30)
[2019-05-20] MEDS: INSULIN GLARGINE UD 100 UNITS/ML SYR SUBCUT SCH ×2 (10:32→21:41)
[2019-05-20 10:45] LABS: ATYPICAL LYMPHOCYTES 1; PLATELET ESTIMATE NORMAL
[2019-05-20 11:35] VITALS: BP 112/68
[2019-05-20] MEDS ORDERED: MAGNESIUM 2 G PREMIX 50 ML IV NR (13:30)
[2019-05-20] MEDS ORDERED: BENZONATATE 100MG CAPSULE PO PRN (13:30)
[2019-05-20] MEDS ORDERED: ATOR10TA69 MT (14:50)
[2019-05-20] MEDS ORDERED: AMLO10TA80 MT (14:51)
[2019-05-20] MEDS ORDERED: METF-414 MT (14:51)
[2019-05-20 16:23] VITALS: BP 131/82
[2019-05-20 20:00] VITALS: BP 159/95
[2019-05-21] VITALS: BP 150/85
[2019-05-21] MEDS: IPRATROPIUM/ALBUTEROL 0.5-3(2.5)MG/3ML NEB HHN SCH ×4 (00:50→08:46)
[2019-05-21 04:00] VITALS: BP 166/90
[2019-05-21] MEDS: GUAIFENESIN 200MG/10ML SUGAR FREE UDC PO PRN ×2 (04:58→08:53)
[2019-05-21] MEDS: BUDESONIDE 0.5MG/2ML NEB HHN SCH ×2 (04:59→08:42)
[2019-05-21] MEDS: BLOOD SUGAR DIAGNOSTIC STRIP TEST SCH (06:17)
[2019-05-21] MEDS: PANTOPRAZOLE 40MG DR TABLET PO SCH (06:26)
[2019-05-21] MEDS: INSULIN LISPRO 100 UNITS/ML SUBCUT SCH ×2 (06:26)
[2019-05-21] MEDS: GLIPIZIDE 5MG TABLET PO SCH (06:26)
[2019-05-21] MEDS: HYDROCODONE/ACETAMINOPHEN 5/325MG TABLET PO PRN (06:32)
[2019-05-21 08:02] VITALS: BP 143/98
[2019-05-21] MEDS: FUROSEMIDE 40MG/4ML VIAL IV SCH (08:53)
[2019-05-21] MEDS: PREDNISONE 20MG TABLET PO SCH (08:53)
[2019-05-21] MEDS: AMLODIPINE 5MG TABLET PO SCH (08:53)
[2019-05-21] MEDS ORDERED: IOHEXOL-300 100 ML BOTTLE ONE (09:20)
[2019-05-21] MEDS: INSULIN GLARGINE UD 100 UNITS/ML SYR SUBCUT SCH (10:28)
[2019-05-21] MEDS ORDERED: ATOR20TA65 MT (10:46)
[2019-05-21 11:06] VITALS: BP 131/79
[2019-05-21 12:24] VITALS: BP 149/93
[2019-06-08] MEDS ORDERED: FURO40TA5 MT (11:38)
[2019-06-08] MEDS ORDERED: DEXTL PO (11:38)
[2019-06-08] MEDS ORDERED: AMLO10TA80 MT (11:38)
[2019-06-08] MEDS ORDERED: ALBU18HF2 IH (11:38)
[2019-06-08] MEDS ORDERED: OMEP20CA5 PO (11:40)
== END 2019-05-21 12:40 | disposition home or self-care (01) | DRG 194 ==
LOC: ER 10:22 → EDBEDREQ 11:02 → 8WST 14:04 → EDBEDREQ 14:08 → ENRESERV 15:49
PROVIDERS: ADMIT Internal Medicine; ATTEND Internal Medicine
DX: I11.0 Hypertensive heart disease with heart failure (principal); J96.00 Acute respiratory failure, unspecified whether with hypoxia or hypercapnia; R65.11 Systemic inflammatory response syndrome (SIRS) of non-infectious origin with acute organ dysfunction; I50.33 Acute on chronic diastolic (congestive) heart failure; E87.2 Acidosis; E11.65 Type 2 diabetes mellitus with hyperglycemia; E66.01 Morbid (severe) obesity due to excess calories; J68.0 Bronchitis and pneumonitis due to chemicals, gases, fumes and vapors; E87.6 Hypokalemia; I16.0 Hypertensive urgency; J06.9 Acute upper respiratory infection, unspecified; F10.10 Alcohol abuse, uncomplicated; I16.1 Hypertensive emergency; R74.0 Nonspecific elevation of levels of transaminase and lactic acid dehydrogenase [LDH]; I45.10 Unspecified right bundle-branch block; E78.5 Hyperlipidemia, unspecified; F14.10 Cocaine abuse, uncomplicated; F17.210 Nicotine dependence, cigarettes, uncomplicated; Z91.14 Patient's other noncompliance with medication regimen; Z91.19 Patient's noncompliance with other medical treatment and regimen; Z79.84 Long term (current) use of oral hypoglycemic drugs; Z68.35 Body mass index [BMI] 35.0-35.9, adult; Z88.0 Allergy status to penicillin; Z88.8 Allergy status to other drugs, medicaments and biological substances; Z71.3 Dietary counseling and surveillance; Z71.51 Drug abuse counseling and surveillance of drug abuser
CPT/HCPCS: 36415; 36600; 71045; 80048; 80305; 80320; 81003; 82375; 82805; 82962; 83605; 83735; 83880; 84484; 93005; 94640; 99285; J1815; J1940; J1956; J2270; J2405; J2920; J2930; J3475; J3480; J3490; J7060; J7512; J7608; J7620; J7626; Q9967; G0480

== ENCOUNTER 2019-05-27 11:49 | Inpatient (IN) | payer OTHER ==
[2019-05-27] VITALS: BP 157/75
[~2019-05-27] VITALS: Ht 190.5 cm; Wt 149.2 kg
[~2019-05-27 11:49] MED LIST changes: +ALBU18HF2 IH; -ALBU6.7H INH; +AMLO10TA80 MT; -AMLO10TA80 PO; +AMLO5TAB88 PO; +ATOR10TA69 MT; +ATOR20TA65 MT; +DEXTL PO; +FLUT9.9S BOTHNSTRLS; +FURO40TA5 MT; +GLIP5TAB12 PO; +INSLIS SUBCUT; +IPRA3AMP9 HHN; +LANTUSUD SUBCUT; +METF-414 MT
[2019-05-27] MEDS ORDERED: METHYLPREDNISOLONE SOD SUCC 125 MG/2 ML VIAL IV STA (12:49)
[2019-05-27] MEDS ORDERED: IPRATROPIUM BROMIDE (0.02%) 0.5MG/2.5ML NEB HHN STA (12:49)
[2019-05-27] MEDS ORDERED: ALBUTEROL (0.083%) 2.5MG/3ML NEB HHN STA (12:49)
[2019-05-27 13:21] LABS: BASOPHILS % 0.7 % (0.0-2.0); EOSINOPHILS % 0.3 % (0.0-5.0); HEMATOCRIT. 45.8 % (36.0-48.0); HEMOGLOBIN. 15.5 g/dL (12.0-16.0); LYMPHOCYTES % 28.7 % (20.0-50.0); MEAN CORPUSCULAR HEMOGLOBIN 31.6 pg (28.0-32.0); MEAN PLATELET VOLUME 9.8 fl (7.4-10.4); MONOCYTES % 8.2 % (2.0-8.0); NEUTROPHILS % 62.1 % (40.0-76.0); PLATELET 246 x1000/uL (130-400); RED BLOOD CELL COUNT 4.92 mill/uL (4.2-5.4); RED CELL DISTRIBUTION WIDTH 13.4 % (11.6-14.6)
[2019-05-27 13:22] LABS: CHLORIDE 102 mEq/L (98-107)
[2019-05-27] MEDS ORDERED: MAGNESIUM/ALUMINUM HYDROXIDE/SIMETHICONE 30ML UDC PO PRN (15:30)
[2019-05-27] MEDS ORDERED: DIPHENHYDRAMINE 50MG/ML VIAL IV PRN (15:30)
[2019-05-27] MEDS ORDERED: IPRATROPIUM/ALBUTEROL 0.5-3(2.5)MG/3ML NEB HHN PRN (15:30)
[2019-05-27] MEDS ORDERED: ONDANSETRON HCL 4MG/2ML INJ IV PRN (15:30)
[2019-05-27] MEDS ORDERED: FUROSEMIDE 40MG/4ML VIAL IVP NR (15:45)
[2019-05-27 16:03] LABS: PHOSPHORUS 3.8 mg/dL (2.5-4.9)
[2019-05-27] MEDS ORDERED: INSULIN REGULAR (HUMULIN R) 300UNITS/3ML SUBCUT ONE (16:15)
[2019-05-27 16:32] LABS: *BARBITURATES SCREEN URINE NEGATIVE (NEGATIVE); *BENZODIAZEPINES SCREEN URINE NEGATIVE (NEGATIVE); *COCAINE SCREEN URINE PRESUMTIVE POSITIVE (NEGATIVE)
[2019-05-27 16:33] LABS: CANNABINOID URINE SCREEN NEGATIVE (NEGATIVE); METHADONE URINE SCREEN NEGATIVE (NEGATIVE); OPIATES URINE SCREEN NEGATIVE (NEGATIVE); PHENCYCLIDINE URINE SCREEN NEGATIVE (NEGATIVE)
[2019-05-27 16:34] LABS: *AMPHETAMINES SCREEN URINE NEGATIVE (NEGATIVE)
[2019-05-27] MEDS ORDERED: INSULIN LISPRO 100 UNITS/ML SUBCUT NR (16:52)
[2019-05-27] MEDS: CLONIDINE 0.1MG TABLET PO PRN (17:01)
[2019-05-27] MEDS: ACETAMINOPHEN 325MG TABLET PO PRN (17:51)
[2019-05-27 22:30] VITALS: BP 173/94
[2019-05-27] MEDS ORDERED: DEXTROSE 50% WATER 50ML SYRINGE IV PRN (23:45)
[2019-05-28] MEDS: SODIUM CHLORIDE 0.9% 1,000 ML IV SCH ×2 (00:49→11:13)
[2019-05-28] MEDS: BLOOD SUGAR DIAGNOSTIC STRIP TEST SCH ×5 (00:57→21:32)
[2019-05-28] MEDS: METHYLPREDNISOLONE SOD SUCC 40 MG/ML VIAL IV SCH ×2 (01:16→05:47)
[2019-05-28] MEDS: INSULIN LISPRO 100 UNITS/ML SUBCUT SCH ×5 (01:17→21:58)
[2019-05-28] MEDS ORDERED: INSULIN GLARGINE UD 100 UNITS/ML SYR SUBCUT SCH ×2 (02:00→22:00)
[2019-05-28 04:00] VITALS: BP 162/94
[2019-05-28] MEDS: CLONIDINE 0.1MG TABLET PO PRN (06:15)
[2019-05-28 06:42] LABS: CHLORIDE 91 mEq/L (98-107)
[2019-05-28 06:47] LABS: HEMATOCRIT. 42.7 % (36.0-48.0); HEMOGLOBIN. 14.6 g/dL (12.0-16.0); MEAN CORPUSCULAR HEMOGLOBIN 31.8 pg (28.0-32.0); MEAN CORPUSCULAR VOLUME 93.2 fL (81.0-99.0); MEAN PLATELET VOLUME 9.9 fl (7.4-10.4); PLATELET 236 x1000/uL (130-400); RED BLOOD CELL COUNT 4.58 mill/uL (4.2-5.4); RED CELL DISTRIBUTION WIDTH 13.1 % (11.6-14.6)
[2019-05-28 07:00] LABS: LDL CHOLESTEROL 113 mg/dL (5-100)
[2019-05-28 07:01] LABS: HDL CHOLESTEROL 59 mg/dL (40-59)
[2019-05-28 08:00] VITALS: BP 165/87
[2019-05-28] MEDS ORDERED: INSULIN LISPRO 100 UNITS/ML SUBCUT SCH (08:30)
[2019-05-28] MEDS: GUAIFENESIN 600MG ER TABLET PO SCH ×2 (08:56→21:50)
[2019-05-28] MEDS: BUDESONIDE 0.5MG/2ML NEB HHN SCH ×2 (10:51→20:45)
[2019-05-28] MEDS: IPRATROPIUM/ALBUTEROL 0.5-3(2.5)MG/3ML NEB HHN SCH ×3 (10:51→20:45)
[2019-05-28] MEDS ORDERED: INSULIN LISPRO 100 UNITS/ML SUBCUT NR ×3 (11:45→22:28)
[2019-05-28 12:00] VITALS: BP 135/80
[2019-05-28 16:00] VITALS: BP 130/80
[2019-05-28 20:00] VITALS: BP 147/84
[2019-05-28 20:55] LABS: ATYPICAL LYMPHOCYTES 1; PLATELET ESTIMATE NORMAL
[2019-05-28] MEDS: ACETAMINOPHEN 325MG TABLET PO PRN (21:52)
[2019-05-29] VITALS: BP 163/95
[2019-05-29] MEDS: IPRATROPIUM/ALBUTEROL 0.5-3(2.5)MG/3ML NEB HHN SCH ×6 (00:54→21:26)
[2019-05-29] MEDS: SODIUM CHLORIDE 0.9% 1,000 ML IV SCH ×2 (01:49→14:19)
[2019-05-29 04:00] VITALS: BP 154/93
[2019-05-29] MEDS: BLOOD SUGAR DIAGNOSTIC STRIP TEST SCH ×4 (06:10→21:00)
[2019-05-29] MEDS: GUAIFENESIN 200MG/10ML SUGAR FREE UDC PO PRN ×3 (06:31→23:03)
[2019-05-29] MEDS: INSULIN LISPRO 100 UNITS/ML SUBCUT SCH ×4 (06:31→23:17)
[2019-05-29] MEDS ORDERED: INSULIN LISPRO 100 UNITS/ML SUBCUT NR ×3 (07:44→22:00)
[2019-05-29 08:00] VITALS: BP 141/90
[2019-05-29] MEDS: BUDESONIDE 0.5MG/2ML NEB HHN SCH (08:02)
[2019-05-29] MEDS: PREDNISONE 20MG TABLET PO SCH (08:50)
[2019-05-29] MEDS: GUAIFENESIN 600MG ER TABLET PO SCH ×2 (08:50→21:00)
[2019-05-29 12:00] VITALS: BP 139/85
[2019-05-29 13:22] LABS: BASOPHILS % 0.1 % (0.0-2.0); HEMATOCRIT. 43.2 % (36.0-48.0); HEMOGLOBIN. 14.5 g/dL (12.0-16.0); LYMPHOCYTES % 12.3 % (20.0-50.0); MEAN CORPUSCULAR HEMOGLOBIN 31.4 pg (28.0-32.0); MEAN CORPUSCULAR VOLUME 93.5 fL (81.0-99.0); MEAN PLATELET VOLUME 10.2 fl (7.4-10.4); NEUTROPHILS % 83.6 % (40.0-76.0); PLATELET 225 x1000/uL (130-400); RED BLOOD CELL COUNT 4.62 mill/uL (4.2-5.4); RED CELL DISTRIBUTION WIDTH 13.4 % (11.6-14.6)
[2019-05-29 13:43] LABS: CHLORIDE 96 mEq/L (98-107)
[2019-05-29 16:00] VITALS: BP 145/90
[2019-05-29] MEDS: FLUCONAZOLE 100MG TABLET PO SCH (17:46)
[2019-05-29 20:00] VITALS: BP 159/93
[2019-05-29] MEDS ORDERED: CLOTRIMAZOLE 1% VAGINAL CREAM 45GM VG NR (23:00)
[2019-05-29] MEDS: CLONIDINE 0.1MG TABLET PO PRN (23:02)
[2019-05-29] MEDS: INSULIN GLARGINE UD 100 UNITS/ML SYR SUBCUT SCH (23:18)
[2019-05-30] VITALS: BP 145/82
[2019-05-30] MEDS: SODIUM CHLORIDE 0.9% 1,000 ML IV SCH ×2 (02:49→15:19)
[2019-05-30 04:00] VITALS: BP 156/113
[2019-05-30] MEDS: IPRATROPIUM/ALBUTEROL 0.5-3(2.5)MG/3ML NEB HHN SCH ×7 (05:07→23:37)
[2019-05-30] MEDS: CLONIDINE 0.1MG TABLET PO PRN ×2 (06:28→20:29)
[2019-05-30] MEDS: GUAIFENESIN 200MG/10ML SUGAR FREE UDC PO PRN ×2 (07:11→20:27)
[2019-05-30 07:23] LABS: BASOPHILS % 0.5 % (0.0-2.0); EOSINOPHILS % 0.1 % (0.0-5.0); HEMATOCRIT. 41.6 % (36.0-48.0); HEMOGLOBIN. 14.2 g/dL (12.0-16.0); MEAN CORPUSCULAR HEMOGLOBIN 31.6 pg (28.0-32.0); MEAN CORPUSCULAR VOLUME 92.6 fL (81.0-99.0); MEAN PLATELET VOLUME 9.8 fl (7.4-10.4); MONOCYTES % 7.9 % (2.0-8.0); NEUTROPHILS % 58.5 % (40.0-76.0); PLATELET 230 x1000/uL (130-400); RED BLOOD CELL COUNT 4.49 mill/uL (4.2-5.4); RED CELL DISTRIBUTION WIDTH 13.4 % (11.6-14.6)
[2019-05-30 07:40] LABS: CHLORIDE 99 mEq/L (98-107)
[2019-05-30] MEDS: BLOOD SUGAR DIAGNOSTIC STRIP TEST SCH ×4 (07:40→21:19)
[2019-05-30] MEDS: BUDESONIDE 0.5MG/2ML NEB HHN SCH ×3 (07:59→21:03)
[2019-05-30 08:00] VITALS: BP 148/88
[2019-05-30] MEDS: INSULIN LISPRO 100 UNITS/ML SUBCUT SCH ×4 (09:01→21:20)
[2019-05-30] MEDS: GUAIFENESIN 600MG ER TABLET PO SCH ×2 (09:02→20:32)
[2019-05-30] MEDS: PREDNISONE 20MG TABLET PO SCH (09:02)
[2019-05-30] MEDS: FLUCONAZOLE 100MG TABLET PO SCH (09:02)
[2019-05-30 12:00] VITALS: BP 150/80
[2019-05-30] MEDS ORDERED: INSULIN LISPRO 100 UNITS/ML SUBCUT ONE (13:30)
[2019-05-30] MEDS ORDERED: INSULIN LISPRO 100 UNITS/ML SUBCUT NR ×3 (13:45→21:15)
[2019-05-30] MEDS: ACETAMINOPHEN 325MG TABLET PO PRN (15:41)
[2019-05-30 16:00] VITALS: BP 152/91
[2019-05-30 20:00] VITALS: BP 157/97
[2019-05-30] MEDS: HYDROCODONE/ACETAMINOPHEN 5/325MG TABLET PO PRN (20:28)
[2019-05-30] MEDS: INSULIN GLARGINE UD 100 UNITS/ML SYR SUBCUT SCH (21:19)
[2019-05-31] VITALS: BP 115/80
[2019-05-31] MEDS: IPRATROPIUM/ALBUTEROL 0.5-3(2.5)MG/3ML NEB HHN SCH ×2 (03:13→09:13)
[2019-05-31] MEDS: SODIUM CHLORIDE 0.9% 1,000 ML IV SCH (03:49)
[2019-05-31] MEDS: GUAIFENESIN 200MG/10ML SUGAR FREE UDC PO PRN (06:30)
[2019-05-31] MEDS ORDERED: INSULIN LISPRO 100 UNITS/ML SUBCUT SCH (07:40)
[2019-05-31] MEDS: BLOOD SUGAR DIAGNOSTIC STRIP TEST SCH (08:16)
[2019-05-31 08:30] VITALS: BP 162/105
[2019-05-31] MEDS: FLUCONAZOLE 100MG TABLET PO SCH (08:39)
[2019-05-31] MEDS: GUAIFENESIN 600MG ER TABLET PO SCH (08:39)
[2019-05-31] MEDS: PREDNISONE 20MG TABLET PO SCH (08:39)
[2019-05-31] MEDS: INSULIN LISPRO 100 UNITS/ML SUBCUT SCH (08:42)
[2019-05-31] MEDS: CLONIDINE 0.1MG TABLET PO PRN (08:59)
[2019-05-31] MEDS: HYDROCODONE/ACETAMINOPHEN 5/325MG TABLET PO PRN (09:39)
[2019-05-31 10:04] LABS: BASOPHILS % 0.3 % (0.0-2.0); EOSINOPHILS % 0.2 % (0.0-5.0); HEMATOCRIT. 43.2 % (36.0-48.0); HEMOGLOBIN. 14.9 g/dL (12.0-16.0); MEAN CORPUSCULAR HEMOGLOBIN 32.2 pg (28.0-32.0); MEAN CORPUSCULAR VOLUME 93.6 fL (81.0-99.0); MEAN PLATELET VOLUME 9.8 fl (7.4-10.4); MONOCYTES % 6.5 % (2.0-8.0); PLATELET 234 x1000/uL (130-400); RED BLOOD CELL COUNT 4.62 mill/uL (4.2-5.4); RED CELL DISTRIBUTION WIDTH 13.5 % (11.6-14.6)
[2019-05-31 10:10] LABS: CHLORIDE 97 mEq/L (98-107)
[2019-05-31 11:01] VITALS: BP 136/79
[2019-05-31] MEDS ORDERED: INSULIN GLARGINE UD 100 UNITS/ML SYR SUBCUT SCH (22:00)
== END 2019-05-31 11:38 | disposition home or self-care (01) | DRG 133 ==
LOC: ER 11:49 → 7WST 14:50 → EDBEDREQ 15:32 → ENRESERV 21:04
PROVIDERS: ADMIT Internal Medicine; ATTEND Internal Medicine
DX: J96.00 Acute respiratory failure, unspecified whether with hypoxia or hypercapnia (principal); I11.0 Hypertensive heart disease with heart failure; J44.1 Chronic obstructive pulmonary disease with (acute) exacerbation; J45.901 Unspecified asthma with (acute) exacerbation; I50.32 Chronic diastolic (congestive) heart failure; E11.65 Type 2 diabetes mellitus with hyperglycemia; Z68.41 Body mass index [BMI] 40.0-44.9, adult; E66.9 Obesity, unspecified; E78.5 Hyperlipidemia, unspecified; D72.821 Monocytosis (symptomatic); M23.8X2 Other internal derangements of left knee; M23.8X1 Other internal derangements of right knee; B37.3 Candidiasis of vulva and vagina; F14.10 Cocaine abuse, uncomplicated; Z88.6 Allergy status to analgesic agent; Z88.0 Allergy status to penicillin; Z79.899 Other long term (current) drug therapy; Z79.84 Long term (current) use of oral hypoglycemic drugs; Z79.4 Long term (current) use of insulin
CPT/HCPCS: 36415; 71045; 80048; 80061; 80305; 82947; 82962; 83735; 83880; 84100; 84443; 84484; 93005; 93970; 94640; 94644; 99285; J1815; J1940; J2920; J2930; J7030; J7512; J7611; J7620; J7626

== ENCOUNTER 2019-07-10 16:35 | Inpatient (IN) | payer OTHER ==
[~2019-07-10] VITALS: Ht 185.4 cm; Wt 155.1 kg
[~2019-07-10 16:35] MED LIST changes: -AMLO5TAB88 PO; -ATOR10TA69 MT; +LOSA50TA3 PO; -METF-414 MT; +OMEP20CA14 PO
[2019-07-10] MEDS ORDERED: METHYLPREDNISOLONE SOD SUCC 125 MG/2 ML VIAL IV STA (20:21)
[2019-07-10] MEDS ORDERED: LEVOFLOXACIN 750MG PREMIX 150 ML IV ONE (20:30)
[2019-07-10] MEDS ORDERED: ACETAMINOPHEN 325MG TABLET PO ONE (20:30)
[2019-07-10] MEDS ORDERED: IPRATROPIUM/ALBUTEROL 0.5-3(2.5)MG/3ML NEB HHN ONE (20:30)
[2019-07-10] MEDS ORDERED: HYDROCODONE/ACETAMINOPHEN 5/325MG TABLET PO ONE (20:45)
[2019-07-10 21:05] LABS: BASOPHILS % 0.6 % (0.0-2.0); EOSINOPHILS % 0.5 % (0.0-5.0); HEMATOCRIT. 39.3 % (36.0-48.0); HEMOGLOBIN. 13.6 g/dL (12.0-16.0); LYMPHOCYTES % 24.7 % (20.0-50.0); MEAN CORPUSCULAR HEMOGLOBIN 32.1 pg (28.0-32.0); MEAN CORPUSCULAR VOLUME 92.4 fL (81.0-99.0); MEAN PLATELET VOLUME 8.8 fl (7.4-10.4); MONOCYTES % 10.7 % (2.0-8.0); NEUTROPHILS % 63.5 % (40.0-76.0); PLATELET 244 x1000/uL (130-400); RED BLOOD CELL COUNT 4.25 mill/uL (4.2-5.4); RED CELL DISTRIBUTION WIDTH 13.6 % (11.6-14.6)
[2019-07-10 21:12] LABS: CHLORIDE 105 mEq/L (98-107)
[2019-07-10 21:13] LABS: PARTIAL THROMBOPLASTIN TIME 23.7 sec (23.4-31.0); PROTHROMBIN TIME 9.9 sec (9.6-11.0)
[2019-07-10] MEDS ORDERED: ASPIRIN 81MG TABLET PO ONE (22:45)
[2019-07-11] VITALS: BP 158/94
[2019-07-11 02:15] VITALS: BP 158/94
[2019-07-11 04:00] VITALS: BP 165/98
[2019-07-11] MEDS ORDERED: DEXTROSE 50% WATER 50ML SYRINGE IV PRN (04:15)
[2019-07-11] MEDS: GLIPIZIDE 5MG TABLET PO SCH (06:06)
[2019-07-11] MEDS: BLOOD SUGAR DIAGNOSTIC STRIP TEST SCH ×4 (06:07→21:30)
[2019-07-11] MEDS: OMEPRAZOLE 20MG CAPSULE EXTENDED RELEASE PO SCH (06:07)
[2019-07-11] MEDS: INSULIN LISPRO 100 UNITS/ML SUBCUT SCH ×5 (06:12→21:41)
[2019-07-11] MEDS: IPRATROPIUM/ALBUTEROL 0.5-3(2.5)MG/3ML NEB HHN PRN ×3 (09:35→16:35)
[2019-07-11] MEDS: ENOXAPARIN 30MG/0.3ML SYR SUBCUT SCH ×2 (09:40→21:28)
[2019-07-11] MEDS: HYDROCODONE/ACETAMINOPHEN 5/325MG TABLET PO PRN ×3 (09:41→23:00)
[2019-07-11] MEDS: AMLODIPINE 10MG TABLET PO SCH (09:42)
[2019-07-11] MEDS ORDERED: INSULIN LISPRO 100 UNITS/ML SUBCUT NR ×2 (09:45→10:00)
[2019-07-11 10:57] LABS: BASOPHILS % 0.1 % (0.0-2.0); HEMATOCRIT. 38.3 % (36.0-48.0); HEMOGLOBIN. 13.2 g/dL (12.0-16.0); LYMPHOCYTES % 10.4 % (20.0-50.0); MEAN CORPUSCULAR HEMOGLOBIN 32.1 pg (28.0-32.0); MEAN CORPUSCULAR VOLUME 93.6 fL (81.0-99.0); MEAN PLATELET VOLUME 9.3 fl (7.4-10.4); MONOCYTES % 3.3 % (2.0-8.0); NEUTROPHILS % 86.2 % (40.0-76.0); PLATELET 232 x1000/uL (130-400); RED CELL DISTRIBUTION WIDTH 13.6 % (11.6-14.6)
[2019-07-11 11:09] LABS: CHLORIDE 100 mEq/L (98-107)
[2019-07-11 11:15] LABS: LDL CHOLESTEROL 73 mg/dL (5-100)
[2019-07-11 11:17] LABS: CREATINE KINASE 81 IU/L (26-192); HDL CHOLESTEROL 74 mg/dL (40-59)
[2019-07-11 11:20] LABS: CREATINE KINASE MB FRACTION 1.5 ng/mL (0.5-3.6)
[2019-07-11 16:00] VITALS: BP 166/84
[2019-07-11 20:00] VITALS: BP 170/95
[2019-07-11] MEDS ORDERED: ATORVASTATIN CALCIUM 20MG TABLET PO SCH (21:00)
[2019-07-11] MEDS: IPRATROPIUM/ALBUTEROL 0.5-3(2.5)MG/3ML NEB HHN SCH (21:02)
[2019-07-11] MEDS: BUDESONIDE 0.5MG/2ML NEB HHN SCH (21:02)
[2019-07-11] MEDS: GUAIFENESIN 600MG ER TABLET PO SCH (21:28)
[2019-07-11] MEDS ORDERED: INSULIN GLARGINE UD 100 UNITS/ML SYR SUBCUT SCH (22:00)
[2019-07-12] MEDS: IPRATROPIUM/ALBUTEROL 0.5-3(2.5)MG/3ML NEB HHN SCH ×2 (01:26→07:56)
[2019-07-12 02:11] LABS: *COCAINE SCREEN URINE PRESUMTIVE POSITIVE (NEGATIVE); METHADONE URINE SCREEN NEGATIVE (NEGATIVE); OPIATES URINE SCREEN PRESUMTIVE POSITIVE (NEGATIVE)
[2019-07-12 02:12] LABS: *AMPHETAMINES SCREEN URINE NEGATIVE (NEGATIVE); *BARBITURATES SCREEN URINE NEGATIVE (NEGATIVE); *BENZODIAZEPINES SCREEN URINE NEGATIVE (NEGATIVE); CANNABINOID URINE SCREEN NEGATIVE (NEGATIVE); PHENCYCLIDINE URINE SCREEN NEGATIVE (NEGATIVE)
[2019-07-12] MEDS: BLOOD SUGAR DIAGNOSTIC STRIP TEST SCH ×2 (07:19→12:23)
[2019-07-12] MEDS: BUDESONIDE 0.5MG/2ML NEB HHN SCH (07:57)
[2019-07-12 08:00] VITALS: BP 155/81
[2019-07-12] MEDS: AMLODIPINE 10MG TABLET PO SCH (09:02)
[2019-07-12] MEDS: GUAIFENESIN 600MG ER TABLET PO SCH (09:02)
[2019-07-12] MEDS: ENOXAPARIN 30MG/0.3ML SYR SUBCUT SCH (09:02)
[2019-07-12] MEDS: OMEPRAZOLE 20MG CAPSULE EXTENDED RELEASE PO SCH (09:02)
[2019-07-12] MEDS: HYDROCODONE/ACETAMINOPHEN 5/325MG TABLET PO PRN (09:03)
[2019-07-12] MEDS ORDERED: LOSA50TA3 PO (11:23)
[2019-07-12] MEDS ORDERED: AMLO10TA80 MT (11:23)
[2019-07-12] MEDS ORDERED: ALBU18HF2 IH (11:23)
[2019-07-12] MEDS ORDERED: FURO40TA5 MT (11:23)
[2019-07-12 12:00] VITALS: BP 154/96
[2019-07-12] MEDS: INSULIN LISPRO 100 UNITS/ML SUBCUT SCH (12:27)
[2019-07-12] MEDS: GLIPIZIDE 5MG TABLET PO SCH (12:29)
[2019-07-12 12:59] VITALS: BP 154/96
== END 2019-07-12 13:20 | disposition home or self-care (01) | DRG 133 ==
LOC: ER 16:35 → 7WST 20:56 → EDBEDREQTM 23:06 → EDBEDREQ 23:06 → ENRESERV 07-11 01:07
PROVIDERS: ADMIT Internal Medicine; ATTEND Internal Medicine
DX: J96.20 Acute and chronic respiratory failure, unspecified whether with hypoxia or hypercapnia (principal); I11.0 Hypertensive heart disease with heart failure; I50.9 Heart failure, unspecified; E11.65 Type 2 diabetes mellitus with hyperglycemia; J44.1 Chronic obstructive pulmonary disease with (acute) exacerbation; E66.9 Obesity, unspecified; E87.6 Hypokalemia; I87.8 Other specified disorders of veins; F14.10 Cocaine abuse, uncomplicated; F17.210 Nicotine dependence, cigarettes, uncomplicated; J06.9 Acute upper respiratory infection, unspecified; Z91.19 Patient's noncompliance with other medical treatment and regimen; Z88.0 Allergy status to penicillin; Z88.6 Allergy status to analgesic agent; Z79.899 Other long term (current) drug therapy; Z79.4 Long term (current) use of insulin
CPT/HCPCS: 36415; 71045; 80053; 80061; 80305; 80320; 82550; 82553; 82962; 83605; 83880; 84484; 85025; 93005; 93970; 94640; 96365; 96375; 99285; J1650; J1815; J1956; J2930; J7620; J7626; G0480

== ENCOUNTER 2019-07-20 07:08 | Inpatient (IN) | payer OTHER ==
[~2019-07-20] VITALS: Ht 188 cm; Wt 152.9 kg
[2019-07-20] MEDS ORDERED: ALBUTEROL (0.083%) 2.5MG/3ML NEB HHN STA (08:37)
[2019-07-20] MEDS ORDERED: IPRATROPIUM BROMIDE (0.02%) 0.5MG/2.5ML NEB HHN STA (08:37)
[2019-07-20] MEDS ORDERED: METHYLPREDNISOLONE SOD SUCC 125 MG/2 ML VIAL IV STA (08:37)
[2019-07-20 09:13] LABS: CHLORIDE 97 mEq/L (98-107)
[2019-07-20 09:16] LABS: BASOPHILS % 0.6 % (0.0-2.0); HEMATOCRIT. 45.8 % (36.0-48.0); HEMOGLOBIN. 15.3 g/dL (12.0-16.0); LYMPHOCYTES % 14.3 % (20.0-50.0); MEAN CORPUSCULAR HEMOGLOBIN 31.3 pg (28.0-32.0); MEAN CORPUSCULAR VOLUME 93.8 fL (81.0-99.0); MEAN PLATELET VOLUME 9.4 fl (7.4-10.4); MONOCYTES % 5.6 % (2.0-8.0); NEUTROPHILS % 79.5 % (40.0-76.0); PLATELET 309 x1000/uL (130-400); RED BLOOD CELL COUNT 4.88 mill/uL (4.2-5.4)
[2019-07-20] MEDS ORDERED: IPRATROPIUM BROMIDE (0.02%) 0.5MG/2.5ML NEB HHN ONE (11:45)
[2019-07-20] MEDS ORDERED: ALBUTEROL (0.083%) 2.5MG/3ML NEB HHN ONE (11:45)
[2019-07-20] MEDS ORDERED: ONDANSETRON HCL 4MG/2ML INJ IV PRN (17:15)
[2019-07-20] MEDS ORDERED: ACETAMINOPHEN 325MG TABLET PO PRN (17:15)
[2019-07-20] MEDS ORDERED: LORAZEPAM 0.5MG TABLET PO PRN (17:15)
[2019-07-20] MEDS ORDERED: GUAIFENESIN 200MG/10ML SUGAR FREE UDC PO PRN (17:15)
[2019-07-20] MEDS ORDERED: CLONIDINE 0.1MG TABLET PO PRN (17:15)
[2019-07-20] MEDS ORDERED: DOCUSATE SODIUM 100MG CAPSULE PO PRN (17:15)
[2019-07-20] MEDS ORDERED: DEXTROSE 50% WATER 50ML SYRINGE IV PRN (17:45)
[2019-07-20] MEDS: METHYLPREDNISOLONE SOD SUCC 125 MG/2 ML VIAL IV SCH (17:53)
[2019-07-20] MEDS: IPRATROPIUM/ALBUTEROL 0.5-3(2.5)MG/3ML NEB HHN PRN (17:58)
[2019-07-20] MEDS ORDERED: BENZONATATE 100MG CAPSULE PO PRN (19:00)
[2019-07-20] MEDS: BLOOD SUGAR DIAGNOSTIC STRIP TEST SCH ×2 (19:00→21:00)
[2019-07-20] MEDS: INSULIN LISPRO 100 UNITS/ML SUBCUT SCH ×3 (19:21→23:10)
[2019-07-20 21:45] VITALS: BP_SYST 171; BP_SYST 174; BP_DIAS 90
[2019-07-20] MEDS: INSULIN GLARGINE UD 100 UNITS/ML SYR SUBCUT SCH (22:56)
[2019-07-20] MEDS: HYDROCODONE/ACETAMINOPHEN 5/325MG TABLET PO PRN (22:58)
[2019-07-20] MEDS ORDERED: GUAIFENESIN 200MG TABLET PO PRN (23:00)
[2019-07-21] VITALS: BP_SYST 173; BP_DIAS 53; BP_DIAS 93
[2019-07-21] MEDS: IPRATROPIUM/ALBUTEROL 0.5-3(2.5)MG/3ML NEB HHN PRN (00:17)
[2019-07-21] MEDS: METHYLPREDNISOLONE SOD SUCC 125 MG/2 ML VIAL IV SCH ×3 (02:08→17:47)
[2019-07-21 04:00] VITALS: BP_SYST 154; BP_DIAS 78; BP_DIAS 98
[2019-07-21 06:16] LABS: *AMPHETAMINES SCREEN URINE NEGATIVE (NEGATIVE); *BARBITURATES SCREEN URINE NEGATIVE (NEGATIVE); *BENZODIAZEPINES SCREEN URINE NEGATIVE (NEGATIVE); *COCAINE SCREEN URINE PRESUMTIVE POSITIVE (NEGATIVE); METHADONE URINE SCREEN NEGATIVE (NEGATIVE)
[2019-07-21 06:17] LABS: CANNABINOID URINE SCREEN NEGATIVE (NEGATIVE); OPIATES URINE SCREEN NEGATIVE (NEGATIVE); PHENCYCLIDINE URINE SCREEN NEGATIVE (NEGATIVE)
[2019-07-21] MEDS: BLOOD SUGAR DIAGNOSTIC STRIP TEST SCH ×4 (07:40→21:35)
[2019-07-21 08:00] VITALS: BP 145/68
[2019-07-21 08:03] LABS: HEMATOCRIT. 38.8 % (36.0-48.0); HEMOGLOBIN. 12.9 g/dL (12.0-16.0); MEAN CORPUSCULAR HEMOGLOBIN 31.3 pg (28.0-32.0); MEAN CORPUSCULAR VOLUME 94.4 fL (81.0-99.0); MEAN PLATELET VOLUME 9.4 fl (7.4-10.4); PLATELET 254 x1000/uL (130-400); RED BLOOD CELL COUNT 4.11 mill/uL (4.2-5.4); RED CELL DISTRIBUTION WIDTH 13.6 % (11.6-14.6)
[2019-07-21 08:29] LABS: CHLORIDE 95 mEq/L (98-107)
[2019-07-21] MEDS: LOSARTAN POTASSIUM 50 MG TABLET PO SCH (09:07)
[2019-07-21] MEDS: GLIPIZIDE 5MG TABLET PO SCH ×2 (09:07→17:47)
[2019-07-21] MEDS: FUROSEMIDE 40MG TABLET PO SCH (09:07)
[2019-07-21] MEDS: OMEPRAZOLE 20MG CAPSULE EXTENDED RELEASE PO SCH ×2 (09:08→21:35)
[2019-07-21] MEDS: AMLODIPINE 10MG TABLET PO SCH (09:08)
[2019-07-21] MEDS: INSULIN LISPRO 100 UNITS/ML SUBCUT SCH ×7 (10:18→21:53)
[2019-07-21] MEDS: HYDROCODONE/ACETAMINOPHEN 5/325MG TABLET PO PRN ×3 (10:23→21:52)
[2019-07-21] MEDS: INSULIN GLARGINE UD 100 UNITS/ML SYR SUBCUT SCH (10:24)
[2019-07-21 12:00] VITALS: BP 139/65
[2019-07-21] MEDS: IPRATROPIUM/ALBUTEROL 0.5-3(2.5)MG/3ML NEB HHN SCH ×3 (12:36→20:56)
[2019-07-21] MEDS: GUAIFENESIN 200MG TABLET PO SCH ×3 (14:32→21:35)
[2019-07-21 15:00] LABS: PLATELET ESTIMATE NORMAL
[2019-07-21 18:00] VITALS: BP 142/67
[2019-07-21 20:00] VITALS: BP 131/58
[2019-07-21] MEDS ORDERED: ATORVASTATIN CALCIUM 20MG TABLET PO SCH (21:00)
[2019-07-21] MEDS ORDERED: INSULIN LISPRO 100 UNITS/ML SUBCUT NR (23:30)
[2019-07-22] VITALS: BP 120/61
[2019-07-22] MEDS: GUAIFENESIN 200MG TABLET PO SCH ×4 (00:23→12:00)
[2019-07-22] MEDS: INSULIN GLARGINE UD 100 UNITS/ML SYR SUBCUT SCH ×2 (00:23→09:35)
[2019-07-22] MEDS: METHYLPREDNISOLONE SOD SUCC 125 MG/2 ML VIAL IV SCH ×2 (02:40→08:58)
[2019-07-22 04:00] VITALS: BP 147/86
[2019-07-22] MEDS: IPRATROPIUM/ALBUTEROL 0.5-3(2.5)MG/3ML NEB HHN SCH ×4 (04:53→12:45)
[2019-07-22] MEDS: BLOOD SUGAR DIAGNOSTIC STRIP TEST SCH ×2 (07:40→12:40)
[2019-07-22] MEDS: AMLODIPINE 10MG TABLET PO SCH (08:58)
[2019-07-22] MEDS: LOSARTAN POTASSIUM 50 MG TABLET PO SCH (08:59)
[2019-07-22] MEDS: GLIPIZIDE 5MG TABLET PO SCH (08:59)
[2019-07-22] MEDS: HYDROCODONE/ACETAMINOPHEN 5/325MG TABLET PO PRN (08:59)
[2019-07-22] MEDS: FUROSEMIDE 40MG TABLET PO SCH (08:59)
[2019-07-22] MEDS: OMEPRAZOLE 20MG CAPSULE EXTENDED RELEASE PO SCH (08:59)
[2019-07-22] MEDS: INSULIN LISPRO 100 UNITS/ML SUBCUT SCH ×3 (09:14→13:45)
[2019-07-22] MEDS ORDERED: LANTUSUD SUBCUT (11:57)
[2019-07-22] MEDS ORDERED: INSLIS SUBCUT (11:57)
[2019-07-22] MEDS ORDERED: FAMO20TA8 MT (11:57)
[2019-07-22] MEDS ORDERED: GLIP5TAB12 PO (11:57)
[2019-07-22] MEDS ORDERED: ALBU18HF2 IH (11:57)
[2019-07-22] MEDS ORDERED: IPRA3AMP9 HHN (11:57)
[2019-07-22] MEDS ORDERED: P20 MT (11:57)
[2019-07-22] MEDS ORDERED: INSULIN LISPRO 100 UNITS/ML SUBCUT SCH (12:40)
[2019-07-22 14:09] VITALS: BP 136/68
[2019-07-22] MEDS ORDERED: FAMOTIDINE 20MG TABLET PO SCH (21:00)
[2019-07-22] MEDS ORDERED: INSULIN GLARGINE UD 100 UNITS/ML SYR SUBCUT SCH ×2 (22:00)
[2019-07-23] MEDS ORDERED: PREDNISONE 20MG TABLET PO SCH (17:00)
== END 2019-07-22 15:41 | disposition home or self-care (01) | DRG 140 ==
LOC: ER 07:23 → EDBEDREQ 14:22 → ENRESERV 19:10 → 7WST 21:29
PROVIDERS: ADMIT Internal Medicine; ATTEND Internal Medicine
DX: J44.1 Chronic obstructive pulmonary disease with (acute) exacerbation (principal); J96.00 Acute respiratory failure, unspecified whether with hypoxia or hypercapnia; I11.0 Hypertensive heart disease with heart failure; I50.32 Chronic diastolic (congestive) heart failure; E11.65 Type 2 diabetes mellitus with hyperglycemia; E66.01 Morbid (severe) obesity due to excess calories; F14.90 Cocaine use, unspecified, uncomplicated; E78.5 Hyperlipidemia, unspecified; Z91.19 Patient's noncompliance with other medical treatment and regimen; Z87.891 Personal history of nicotine dependence; Z68.41 Body mass index [BMI] 40.0-44.9, adult; D72.829 Elevated white blood cell count, unspecified; Z79.84 Long term (current) use of oral hypoglycemic drugs; Z88.6 Allergy status to analgesic agent; Z88.0 Allergy status to penicillin; Z71.3 Dietary counseling and surveillance; Z71.41 Alcohol abuse counseling and surveillance of alcoholic
CPT/HCPCS: 36415; 71045; 80048; 80053; 80305; 82962; 83880; 84484; 85025; 87804; 93005; 94640; 99285; J1815; J2930; J7611; J7620

== ENCOUNTER 2019-08-23 17:15 | Emergency (ER) | payer OTHER ==
[~2019-08-23] VITALS: Ht 190.5 cm; Wt 160.0 kg
[~2019-08-23 17:15] MED LIST changes: +FAMO20TA8 MT; +P20 MT
[2019-08-23] MEDS ORDERED: PREDNISONE 20MG TABLET PO STA (17:47)
[2019-08-23] MEDS ORDERED: IPRATROPIUM BROMIDE (0.02%) 0.5MG/2.5ML NEB HHN STA ×3 (17:47→21:16)
[2019-08-23] MEDS ORDERED: ALBUTEROL (0.083%) 2.5MG/3ML NEB HHN STA ×3 (17:47→21:16)
[2019-08-23 18:47] LABS: CHLORIDE 103 mEq/L (98-107)
[2019-08-23 18:52] LABS: BASOPHILS % 0.5 % (0.0-2.0); EOSINOPHILS % 0.3 % (0.0-5.0); HEMOGLOBIN. 14.1 g/dL (12.0-16.0); LYMPHOCYTES % 17.5 % (20.0-50.0); MEAN CORPUSCULAR HEMOGLOBIN 32.5 pg (28.0-32.0); MEAN CORPUSCULAR VOLUME 94.2 fL (81.0-99.0); MEAN PLATELET VOLUME 9.1 fl (7.4-10.4); MONOCYTES % 11.4 % (2.0-8.0); NEUTROPHILS % 70.3 % (40.0-76.0); PLATELET 239 x1000/uL (130-400); RED BLOOD CELL COUNT 4.36 mill/uL (4.2-5.4); RED CELL DISTRIBUTION WIDTH 14.6 % (11.6-14.6)
[2019-08-23] MEDS ORDERED: POTASSIUM CHLORIDE 20MEQ TABLET SR PO ONE (19:30)
[2019-08-23 22:22] VITALS: BP 150/95
== END 2019-08-23 22:23 | disposition home or self-care (01) ==
LOC: ER 17:15
DX: J44.1 Chronic obstructive pulmonary disease with (acute) exacerbation (principal); I11.0 Hypertensive heart disease with heart failure; I50.9 Heart failure, unspecified; J44.9 Chronic obstructive pulmonary disease, unspecified; E11.9 Type 2 diabetes mellitus without complications; J45.909 Unspecified asthma, uncomplicated; Z79.4 Long term (current) use of insulin; Z79.899 Other long term (current) drug therapy; Z88.0 Allergy status to penicillin
CPT/HCPCS: 36415; 71045; 80053; 82962; 83880; 84484; 85025; 93005; 94640; 94644; 99285; J7512; J7610; Z7610

== ENCOUNTER 2019-08-24 15:24 | Emergency (ER) | payer OTHER ==
[~2019-08-24] VITALS: Ht 190.5 cm; Wt 150.0 kg
[2019-08-24] MEDS ORDERED: IPRATROPIUM BROMIDE (0.02%) 0.5MG/2.5ML NEB HHN STA (15:54)
[2019-08-24] MEDS ORDERED: METHYLPREDNISOLONE SOD SUCC 125 MG/2 ML VIAL IV STA (15:54)
[2019-08-24] MEDS ORDERED: ALBUTEROL (0.083%) 2.5MG/3ML NEB HHN STA (15:54)
[2019-08-24 16:23] LABS: BASOPHILS % 0.4 % (0.0-2.0); HEMATOCRIT. 38.5 % (36.0-48.0); HEMOGLOBIN. 13.4 g/dL (12.0-16.0); LYMPHOCYTES % 19.3 % (20.0-50.0); MEAN CORPUSCULAR HEMOGLOBIN 32.7 pg (28.0-32.0); MEAN CORPUSCULAR VOLUME 94.3 fL (81.0-99.0); MEAN PLATELET VOLUME 9.1 fl (7.4-10.4); MONOCYTES % 12.1 % (2.0-8.0); NEUTROPHILS % 68.2 % (40.0-76.0); PLATELET 218 x1000/uL (130-400); RED BLOOD CELL COUNT 4.08 mill/uL (4.2-5.4); RED CELL DISTRIBUTION WIDTH 14.7 % (11.6-14.6)
[2019-08-24 16:24] LABS: CHLORIDE 104 mEq/L (98-107)
[2019-08-24] MEDS ORDERED: MAGNESIUM/ALUMINUM HYDROXIDE/SIMETHICONE 30ML UDC PO ONE (16:45)
[2019-08-24] MEDS ORDERED: KETOROLAC 30MG/ML VIAL IV ONE (16:45)
[2019-08-24] MEDS ORDERED: SODIUM CHLORIDE 0.9% 500 ML IV ONE (17:15)
[2019-08-24] MEDS: VISCOUS LIDOCAINE 2% 15 ML UDC PO SCH ×2 (17:28→18:21)
[2019-08-24] MEDS ORDERED: POTASSIUM CHLORIDE 20MEQ TABLET SR PO ONE (18:15)
[2019-08-24] MEDS ORDERED: ALBUTEROL (0.5%) 2.5MG/0.5ML NEB HHN ONE (18:15)
[2019-08-24 19:43] VITALS: BP 145/88
== END 2019-08-24 19:50 | disposition home or self-care (01) ==
LOC: ER 15:24
DX: J44.1 Chronic obstructive pulmonary disease with (acute) exacerbation (principal); I11.0 Hypertensive heart disease with heart failure; I50.9 Heart failure, unspecified; E11.9 Type 2 diabetes mellitus without complications; J45.909 Unspecified asthma, uncomplicated; Z79.4 Long term (current) use of insulin; Z88.0 Allergy status to penicillin; Z88.6 Allergy status to analgesic agent
CPT/HCPCS: 36415; 71045; 80053; 83880; 84484; 85025; 93005; 94640; 96374; 96375; 99285; J1885; J2930; J7610; Z7610

== ENCOUNTER 2019-08-26 12:46 | Emergency (ER) | payer OTHER ==
[~2019-08-26] VITALS: Ht 177.8 cm; Wt 85.0 kg
[2019-08-26] MEDS ORDERED: IPRATROPIUM BROMIDE (0.02%) 0.5MG/2.5ML NEB HHN STA (15:25)
[2019-08-26] MEDS ORDERED: ALBUTEROL (0.083%) 2.5MG/3ML NEB HHN STA (15:25)
[2019-08-26 17:25] VITALS: BP 122/87
== END 2019-08-26 17:26 | disposition home or self-care (01) ==
LOC: ER 12:46
DX: J44.1 Chronic obstructive pulmonary disease with (acute) exacerbation (principal); I11.0 Hypertensive heart disease with heart failure; I50.9 Heart failure, unspecified; E11.9 Type 2 diabetes mellitus without complications; Z88.6 Allergy status to analgesic agent; Z88.0 Allergy status to penicillin; Z79.4 Long term (current) use of insulin
CPT/HCPCS: 71045; 94644; 99285; J7610; Z7610

== ENCOUNTER 2019-10-06 15:35 | Emergency (ER) | payer OTHER ==
[~2019-10-06] VITALS: Ht 190.5 cm; Wt 156.0 kg
[2019-10-06] MEDS ORDERED: ASPIRIN 81MG TABLET PO ONE (16:30)
[2019-10-06] MEDS ORDERED: ONDANSETRON HCL 4MG/2ML INJ IV ONE (16:30)
[2019-10-06] MEDS ORDERED: MORPHINE SULFATE 4 MG/ML CPJ (NOT FOR IM USE) IV ONE (16:30)
[2019-10-06 16:50] LABS: BASOPHILS % 0.7 % (0.0-2.0); EOSINOPHILS % 0.7 % (0.0-5.0); HEMATOCRIT. 46.5 % (36.0-48.0); HEMOGLOBIN. 16.2 g/dL (12.0-16.0); LYMPHOCYTES % 28.5 % (20.0-50.0); MEAN CORPUSCULAR HEMOGLOBIN 32.2 pg (28.0-32.0); MEAN CORPUSCULAR VOLUME 92.8 fL (81.0-99.0); MEAN PLATELET VOLUME 9.6 fl (7.4-10.4); MONOCYTES % 9.8 % (2.0-8.0); NEUTROPHILS % 60.3 % (40.0-76.0); PLATELET 257 x1000/uL (130-400); RED BLOOD CELL COUNT 5.01 mill/uL (4.2-5.4); RED CELL DISTRIBUTION WIDTH 13.7 % (11.6-14.6)
[2019-10-06 16:55] LABS: CHLORIDE 103 mEq/L (98-107)
[2019-10-06] MEDS ORDERED: FUROSEMIDE 40MG/4ML VIAL IVP ONE (17:42)
[2019-10-06] MEDS ORDERED: IPRATROPIUM BROMIDE (0.02%) 0.5MG/2.5ML NEB HHN STA (17:59)
[2019-10-06] MEDS ORDERED: ALBUTEROL (0.083%) 2.5MG/3ML NEB HHN STA (17:59)
[2019-10-06] MEDS ORDERED: MAGNESIUM 2 G PREMIX 50 ML IV ONE (18:00)
[2019-10-06 20:00] VITALS: BP 145/90
== END 2019-10-06 20:00 | disposition home or self-care (01) ==
LOC: ER 15:35
DX: J44.1 Chronic obstructive pulmonary disease with (acute) exacerbation (principal); I11.0 Hypertensive heart disease with heart failure; I50.9 Heart failure, unspecified; E11.9 Type 2 diabetes mellitus without complications; Z79.899 Other long term (current) drug therapy; Z88.0 Allergy status to penicillin
CPT/HCPCS: 36415; 71045; 80053; 83880; 84484; 85025; 93005; 93970; 94640; 96365; 96375; 99285; J1940; J2270; J2405; J3475; Z7610

== ENCOUNTER 2019-10-12 11:49 | Inpatient (IN) | payer OTHER ==
[~2019-10-12] VITALS: Ht 188 cm; Wt 156.0 kg
[2019-10-12] MEDS ORDERED: ONDANSETRON HCL 4MG/2ML INJ IV STA (14:11)
[2019-10-12] MEDS ORDERED: MORPHINE SULFATE 4 MG/ML CPJ (NOT FOR IM USE) IV STA (14:11)
[2019-10-12] MEDS ORDERED: ASPIRIN 81MG TABLET PO ONE (14:15)
[2019-10-12] MEDS ORDERED: FUROSEMIDE 40MG/4ML VIAL IV ONE (14:15)
[2019-10-12] MEDS ORDERED: NITROGLYCERIN OINT 1GM/INCH UDPKT TD ONE (14:15)
[2019-10-12 14:30] LABS: BASOPHILS % 0.4 % (0.0-2.0); EOSINOPHILS % 0.3 % (0.0-5.0); HEMATOCRIT. 51.9 % (36.0-48.0); HEMOGLOBIN. 17.9 g/dL (12.0-16.0); LYMPHOCYTES % 26.1 % (20.0-50.0); MEAN CORPUSCULAR HEMOGLOBIN 32.3 pg (28.0-32.0); MEAN CORPUSCULAR VOLUME 93.4 fL (81.0-99.0); MEAN PLATELET VOLUME 10.1 fl (7.4-10.4); MONOCYTES % 10.1 % (2.0-8.0); NEUTROPHILS % 63.1 % (40.0-76.0); PLATELET 279 x1000/uL (130-400); RED BLOOD CELL COUNT 5.55 mill/uL (4.2-5.4); RED CELL DISTRIBUTION WIDTH 13.5 % (11.6-14.6)
[2019-10-12 14:38] LABS: CHLORIDE 93 mEq/L (98-107)
[2019-10-12 14:41] LABS: PARTIAL THROMBOPLASTIN TIME 23.8 sec (23.4-31.0); PROTHROMBIN TIME 10.6 sec (9.6-11.0)
[2019-10-12] MEDS ORDERED: MORPHINE SULFATE 2 MG/ML CPJ (NOT FOR IM USE) IV PRN (18:45)
[2019-10-12 22:18] VITALS: BP 129/78
[2019-10-12 22:30] VITALS: BP 129/78
[2019-10-12] MEDS ORDERED: DEXTROSE 50% WATER 50ML SYRINGE IV PRN (23:00)
[2019-10-13] MEDS: MORPHINE SULFATE 2 MG/ML CPJ (NOT FOR IM USE) IV PRN ×3 (00:34→08:51)
[2019-10-13 00:45] VITALS: BP 166/93
[2019-10-13 04:21] VITALS: BP 139/77
[2019-10-13] MEDS: OMEPRAZOLE 20MG CAPSULE EXTENDED RELEASE PO SCH ×2 (06:27→21:08)
[2019-10-13] MEDS: GLIPIZIDE 10MG TABLET PO SCH ×2 (06:27→17:45)
[2019-10-13] MEDS: METFORMIN HCL 500MG TABLET PO SCH ×2 (06:28→17:45)
[2019-10-13] MEDS: BLOOD SUGAR DIAGNOSTIC STRIP TEST SCH ×4 (06:41→21:00)
[2019-10-13] MEDS: INSULIN LISPRO 100 UNITS/ML SUBCUT SCH ×4 (06:48→21:15)
[2019-10-13 08:00] VITALS: BP 130/66
[2019-10-13] MEDS ORDERED: FUROSEMIDE 40MG/4ML VIAL IVP SCH ×2 (09:00→11:30)
[2019-10-13] MEDS: FAMOTIDINE 20MG TABLET PO SCH ×2 (10:05→17:45)
[2019-10-13] MEDS: LOSARTAN POTASSIUM 50 MG TABLET PO SCH (10:06)
[2019-10-13] MEDS: ASPIRIN 81MG TABLET PO SCH (10:06)
[2019-10-13] MEDS: CARVEDILOL 3.125 MG TABLET PO SCH ×2 (10:06→21:09)
[2019-10-13] MEDS: AMLODIPINE 10MG TABLET PO SCH (10:07)
[2019-10-13] MEDS: ENOXAPARIN 40MG/0.4ML SYR SUBCUT SCH ×2 (10:10→21:09)
[2019-10-13 12:00] VITALS: BP 112/84
[2019-10-13] MEDS: IPRATROPIUM/ALBUTEROL 0.5-3(2.5)MG/3ML NEB HHN SCH (12:00)
[2019-10-13] MEDS: FLUTICASONE PROPIONATE 50MCG/SPRAY BOTTLE BOTHNSTRLS SCH (12:18)
[2019-10-13] MEDS: INSULIN GLARGINE UD 100 UNITS/ML SYR SUBCUT SCH ×2 (12:29→21:06)
[2019-10-13] MEDS: HYDROCODONE/ACETAMINOPHEN 10/325MG TABLET PO PRN ×2 (15:51→21:10)
[2019-10-13 16:00] VITALS: BP 123/78
[2019-10-13] MEDS: FUROSEMIDE 100MG/10ML VIAL IVP SCH (17:45)
[2019-10-13 20:00] VITALS: BP 151/101
[2019-10-13] MEDS ORDERED: ATORVASTATIN CALCIUM 20MG TABLET PO SCH (21:00)
[2019-10-14] VITALS: BP 114/91
[2019-10-14] MEDS: HYDROCODONE/ACETAMINOPHEN 10/325MG TABLET PO PRN ×2 (01:40→06:43)
[2019-10-14] MEDS: IPRATROPIUM/ALBUTEROL 0.5-3(2.5)MG/3ML NEB HHN SCH ×2 (02:41→09:05)
[2019-10-14] MEDS: BLOOD SUGAR DIAGNOSTIC STRIP TEST SCH ×2 (06:25→11:45)
[2019-10-14] MEDS: GLIPIZIDE 10MG TABLET PO SCH (06:42)
[2019-10-14] MEDS: OMEPRAZOLE 20MG CAPSULE EXTENDED RELEASE PO SCH (06:42)
[2019-10-14] MEDS: FUROSEMIDE 100MG/10ML VIAL IVP SCH (06:43)
[2019-10-14] MEDS: INSULIN LISPRO 100 UNITS/ML SUBCUT SCH ×2 (06:47→12:26)
[2019-10-14 06:53] VITALS: BP 120/70
[2019-10-14 07:52] LABS: CHLORIDE 93 mEq/L (98-107)
[2019-10-14 08:00] VITALS: BP 101/72
[2019-10-14] MEDS: METFORMIN HCL 500MG TABLET PO SCH (08:57)
[2019-10-14] MEDS: FAMOTIDINE 20MG TABLET PO SCH (08:58)
[2019-10-14] MEDS: CARVEDILOL 3.125 MG TABLET PO SCH (08:58)
[2019-10-14] MEDS: AMLODIPINE 10MG TABLET PO SCH (08:59)
[2019-10-14] MEDS: ASPIRIN 81MG TABLET PO SCH (08:59)
[2019-10-14] MEDS: ENOXAPARIN 40MG/0.4ML SYR SUBCUT SCH (08:59)
[2019-10-14] MEDS: LOSARTAN POTASSIUM 50 MG TABLET PO SCH (09:00)
[2019-10-14] MEDS: FLUTICASONE PROPIONATE 50MCG/SPRAY BOTTLE BOTHNSTRLS SCH (09:21)
[2019-10-14] MEDS: INSULIN GLARGINE UD 100 UNITS/ML SYR SUBCUT SCH (10:57)
[2019-10-14 12:00] VITALS: BP 115/88
[2019-10-14] MEDS ORDERED: LACTULOSE 20G/30ML UDC PO SCH (12:15)
[2019-10-14] MEDS ORDERED: INSULIN GLARGINE UD 100 UNITS/ML SYR SUBCUT SCH (22:00)
== END 2019-10-14 13:18 | disposition left against medical advice (07) | DRG 194 ==
LOC: ER 11:49 → 5WST 17:03 → ENRESERV 19:34 → 5WST 20:48
PROVIDERS: ADMIT Internal Medicine; ATTEND Internal Medicine
DX: I11.0 Hypertensive heart disease with heart failure (principal); E87.1 Hypo-osmolality and hyponatremia; E87.8 Other disorders of electrolyte and fluid balance, not elsewhere classified; I50.33 Acute on chronic diastolic (congestive) heart failure; E11.9 Type 2 diabetes mellitus without complications; E66.9 Obesity, unspecified; E78.5 Hyperlipidemia, unspecified; F14.90 Cocaine use, unspecified, uncomplicated; F17.210 Nicotine dependence, cigarettes, uncomplicated; Z53.29 Procedure and treatment not carried out because of patient's decision for other reasons; J44.9 Chronic obstructive pulmonary disease, unspecified; Z88.0 Allergy status to penicillin; Z88.8 Allergy status to other drugs, medicaments and biological substances; Z79.4 Long term (current) use of insulin; Z79.899 Other long term (current) drug therapy; Z68.41 Body mass index [BMI] 40.0-44.9, adult; Z71.6 Tobacco abuse counseling; Z71.51 Drug abuse counseling and surveillance of drug abuser; Z71.3 Dietary counseling and surveillance
CPT/HCPCS: 36415; 71045; 80048; 80053; 82962; 83036; 83880; 84484; 85025; 85379; 93005; 93308; 93970; 94640; 96374; 99285; J1650; J1815; J1940; J2270; J2405

== ENCOUNTER 2019-10-23 09:19 | Emergency (ER) | payer MEDICAID, OTHER ==
[~2019-10-23] VITALS: Ht 193 cm; Wt 156.0 kg
[2019-10-23] MEDS ORDERED: METHYLPREDNISOLONE SOD SUCC 125 MG/2 ML VIAL IV STA (10:26)
[2019-10-23] MEDS ORDERED: ALBUTEROL (0.083%) 2.5MG/3ML NEB HHN STA ×2 (10:26→11:08)
[2019-10-23] MEDS ORDERED: IPRATROPIUM BROMIDE (0.02%) 0.5MG/2.5ML NEB HHN STA ×2 (10:26→11:08)
[2019-10-23 10:49] LABS: BASOPHILS % 0.9 % (0.0-2.0); EOSINOPHILS % 0.6 % (0.0-5.0); HEMATOCRIT. 46.7 % (36.0-48.0); HEMOGLOBIN. 16.2 g/dL (12.0-16.0); LYMPHOCYTES % 20.3 % (20.0-50.0); MEAN CORPUSCULAR HEMOGLOBIN 32.2 pg (28.0-32.0); MEAN PLATELET VOLUME 9.8 fl (7.4-10.4); MONOCYTES % 8.5 % (2.0-8.0); NEUTROPHILS % 69.7 % (40.0-76.0); PLATELET 255 x1000/uL (130-400); RED BLOOD CELL COUNT 5.02 mill/uL (4.2-5.4); RED CELL DISTRIBUTION WIDTH 13.3 % (11.6-14.6)
[2019-10-23 10:56] LABS: CHLORIDE 95 mEq/L (98-107)
[2019-10-23] MEDS ORDERED: MORPHINE SULFATE 4 MG/ML CPJ (NOT FOR IM USE) IV ONE (11:30)
[2019-10-23] MEDS ORDERED: FUROSEMIDE 40MG/4ML VIAL IVP ONE (12:00)
[2019-10-23 15:54] VITALS: BP 150/100
== END 2019-10-23 15:59 | disposition short-term general hospital (02) ==
LOC: ER 09:19
DX: I11.0 Hypertensive heart disease with heart failure (principal); I50.9 Heart failure, unspecified; J44.1 Chronic obstructive pulmonary disease with (acute) exacerbation; E11.65 Type 2 diabetes mellitus with hyperglycemia; Z79.4 Long term (current) use of insulin; Z88.6 Allergy status to analgesic agent; Z88.0 Allergy status to penicillin; Z79.899 Other long term (current) drug therapy; Z79.2 Long term (current) use of antibiotics
CPT/HCPCS: 36415; 71045; 80053; 83880; 84484; 85025; 93005; 94640; 96374; 96375; 99285; J1940; J2270; J2930; Z7610

== ENCOUNTER 2019-11-07 11:11 | Emergency (ER) | payer MEDICAID ==
[~2019-11-07] VITALS: Ht 190.5 cm; Wt 160.0 kg
[2019-11-07] MEDS ORDERED: FUROSEMIDE 40MG/4ML VIAL IV ONE (11:45)
[2019-11-07 11:47] LABS: BASOPHILS % 0.6 % (0.0-2.0); EOSINOPHILS % 0.6 % (0.0-5.0); HEMATOCRIT. 45.5 % (36.0-48.0); HEMOGLOBIN. 15.4 g/dL (12.0-16.0); MEAN CORPUSCULAR HEMOGLOBIN 31.4 pg (28.0-32.0); MEAN CORPUSCULAR VOLUME 92.7 fL (81.0-99.0); MEAN PLATELET VOLUME 8.6 fl (7.4-10.4); MONOCYTES % 7.4 % (2.0-8.0); NEUTROPHILS % 70.4 % (40.0-76.0); PLATELET 267 x1000/uL (130-400); RED BLOOD CELL COUNT 4.91 mill/uL (4.2-5.4); RED CELL DISTRIBUTION WIDTH 13.5 % (11.6-14.6)
[2019-11-07 11:57] LABS: CHLORIDE 105 mEq/L (98-107)
[2019-11-07] MEDS ORDERED: ASPIRIN 81MG TABLET PO ONE (12:30)
[2019-11-07] MEDS ORDERED: ACETAMINOPHEN WITH CODEINE 300/30MG TABLET PO ONE (13:30)
[2019-11-07 13:50] LABS: *AMPHETAMINES SCREEN URINE NEGATIVE (NEGATIVE); *BARBITURATES SCREEN URINE NEGATIVE (NEGATIVE); *BENZODIAZEPINES SCREEN URINE NEGATIVE (NEGATIVE); *COCAINE SCREEN URINE PRESUMTIVE POSITIVE (NEGATIVE)
[2019-11-07 13:51] LABS: CANNABINOID URINE SCREEN NEGATIVE (NEGATIVE); OPIATES URINE SCREEN NEGATIVE (NEGATIVE)
[2019-11-07 13:53] LABS: PHENCYCLIDINE URINE SCREEN NEGATIVE (NEGATIVE)
[2019-11-07 13:58] LABS: METHADONE URINE SCREEN NEGATIVE (NEGATIVE)
[2019-11-07] MEDS ORDERED: KETOROLAC 60MG/2ML VIAL IM ONE (18:30)
[2019-11-07 18:32] VITALS: BP 160/99
== END 2019-11-07 18:33 | disposition home or self-care (01) ==
LOC: ER 11:11
DX: I11.0 Hypertensive heart disease with heart failure (principal); I50.33 Acute on chronic diastolic (congestive) heart failure; E11.9 Type 2 diabetes mellitus without complications; R60.0 Localized edema; F14.10 Cocaine abuse, uncomplicated; J44.9 Chronic obstructive pulmonary disease, unspecified; Z87.828 Personal history of other (healed) physical injury and trauma; Z87.891 Personal history of nicotine dependence; Z88.6 Allergy status to analgesic agent; Z88.0 Allergy status to penicillin
CPT/HCPCS: 36415; 71045; 80053; 80305; 83880; 84484; 85025; 93005; 96372; 96374; 99285; J1885; J1940; Z7610

== ENCOUNTER 2020-01-17 15:25 | Inpatient (IN) | payer OTHER ==
[~2020-01-17] VITALS: Ht 190.5 cm; Wt 158.3 kg
[2020-01-17] MEDS ORDERED: FUROSEMIDE 40MG/4ML VIAL IV ONE (20:00)
[2020-01-17] MEDS ORDERED: ASPIRIN 81MG TABLET PO ONE (20:00)
[2020-01-17 20:29] LABS: BASOPHILS % 0.5 % (0.0-2.0); EOSINOPHILS % 0.5 % (0.0-5.0); HEMATOCRIT. 46.2 % (36.0-48.0); HEMOGLOBIN. 15.9 g/dL (12.0-16.0); LYMPHOCYTES % 27.4 % (20.0-50.0); MEAN CORPUSCULAR HEMOGLOBIN 31.7 pg (28.0-32.0); MEAN CORPUSCULAR VOLUME 92.3 fL (81.0-99.0); MEAN PLATELET VOLUME 10.2 fl (7.4-10.4); MONOCYTES % 8.7 % (2.0-8.0); NEUTROPHILS % 62.9 % (40.0-76.0); PLATELET 245 x1000/uL (130-400); RED CELL DISTRIBUTION WIDTH 14.2 % (11.6-14.6)
[2020-01-17 20:37] LABS: CHLORIDE 95 mEq/L (98-107)
[2020-01-17] MEDS ORDERED: INSULIN REGULAR (HUMULIN R) 300UNITS/3ML SUBCUT ONE (21:15)
[2020-01-17] MEDS ORDERED: ALBUTEROL (0.083%) 2.5MG/3ML NEB HHN ONE (21:45)
[2020-01-17] MEDS ORDERED: PREDNISONE 20MG TABLET PO ONE (22:15)
[2020-01-18] MEDS ORDERED: INSULIN LISPRO 100 UNITS/ML SUBCUT ONE (06:25)
[2020-01-18 09:04] VITALS: BP 134/82
[2020-01-18 09:19] VITALS: BP 134/82
[2020-01-18] MEDS ORDERED: ACETAMINOPHEN 325MG TABLET PO PRN (10:15)
[2020-01-18] MEDS ORDERED: DEXTROSE 50% WATER 50ML SYRINGE IV PRN (10:15)
[2020-01-18] MEDS ORDERED: CLONIDINE 0.1MG TABLET PO PRN (10:15)
[2020-01-18] MEDS ORDERED: ONDANSETRON HCL 4MG/2ML INJ IV PRN (10:15)
[2020-01-18] MEDS ORDERED: IPRATROPIUM/ALBUTEROL 0.5-3(2.5)MG/3ML NEB HHN PRN (10:15)
[2020-01-18] MEDS: ENOXAPARIN 40MG/0.4ML SYR SUBCUT SCH ×2 (10:58→21:26)
[2020-01-18] MEDS: FUROSEMIDE 100MG/10ML VIAL IVP SCH ×2 (10:58→16:05)
[2020-01-18] MEDS: BLOOD SUGAR DIAGNOSTIC STRIP TEST SCH ×3 (11:35→21:01)
[2020-01-18] MEDS ORDERED: INSULIN LISPRO 100 UNITS/ML SUBCUT NR (11:35)
[2020-01-18] MEDS: INSULIN LISPRO 100 UNITS/ML SUBCUT SCH ×4 (11:51→21:25)
[2020-01-18 12:00] VITALS: BP 133/73
[2020-01-18] MEDS ORDERED: INSULIN GLARGINE UD 100 UNITS/ML SYR SUBCUT NR (12:00)
[2020-01-18 15:10] LABS: *AMPHETAMINES SCREEN URINE NEGATIVE (NEGATIVE); *BARBITURATES SCREEN URINE NEGATIVE (NEGATIVE); *BENZODIAZEPINES SCREEN URINE NEGATIVE (NEGATIVE); *COCAINE SCREEN URINE NEGATIVE (NEGATIVE); CANNABINOID URINE SCREEN NEGATIVE (NEGATIVE); METHADONE URINE SCREEN NEGATIVE (NEGATIVE); OPIATES URINE SCREEN NEGATIVE (NEGATIVE); PHENCYCLIDINE URINE SCREEN NEGATIVE (NEGATIVE)
[2020-01-18 16:00] VITALS: BP 123/84
[2020-01-18] MEDS ORDERED: INSULIN LISPRO 100 UNITS/ML SUBCUT SCH (16:45)
[2020-01-18] MEDS ORDERED: FLUCONAZOLE 150MG TABLET PO NR (17:00)
[2020-01-18] MEDS: PREDNISONE 20MG TABLET PO SCH (17:36)
[2020-01-18 20:00] VITALS: BP 111/61
[2020-01-18] MEDS: IPRATROPIUM/ALBUTEROL 0.5-3(2.5)MG/3ML NEB HHN SCH (20:40)
[2020-01-18] MEDS: INSULIN GLARGINE UD 100 UNITS/ML SYR SUBCUT SCH (22:42)
[2020-01-18 23:53] LABS: CHLORIDE 90 mEq/L (98-107)
[2020-01-18 23:58] LABS: LDL CHOLESTEROL 178 mg/dL (5-100)
[2020-01-19] VITALS: BP 111/61
[2020-01-19] LABS: HDL CHOLESTEROL 45 mg/dL (40-59)
[2020-01-19] MEDS ORDERED: POTASSIUM CHLORIDE 20MEQ TABLET SR PO NR (01:00)
[2020-01-19] MEDS: IPRATROPIUM/ALBUTEROL 0.5-3(2.5)MG/3ML NEB HHN SCH ×2 (02:33→08:28)
[2020-01-19 05:51] LABS: CHLORIDE 91 mEq/L (98-107)
[2020-01-19] MEDS: BLOOD SUGAR DIAGNOSTIC STRIP TEST SCH (06:16)
[2020-01-19] MEDS: INSULIN LISPRO 100 UNITS/ML SUBCUT SCH ×3 (06:17→09:05)
[2020-01-19 08:00] VITALS: BP 167/106
[2020-01-19] MEDS: FUROSEMIDE 100MG/10ML VIAL IVP SCH (08:51)
[2020-01-19] MEDS: INSULIN GLARGINE UD 100 UNITS/ML SYR SUBCUT SCH (08:53)
[2020-01-19] MEDS: ENOXAPARIN 40MG/0.4ML SYR SUBCUT SCH (08:54)
[2020-01-19] MEDS: PREDNISONE 20MG TABLET PO SCH (08:56)
[2020-01-19] MEDS ORDERED: INSULIN GLARGINE UD 100 UNITS/ML SYR SUBCUT SCH ×2 (10:30→22:00)
[2020-01-19] MEDS ORDERED: ATORVASTATIN CALCIUM 40MG TABLET PO SCH (21:00)
== END 2020-01-19 10:20 | disposition left against medical advice (07) | DRG 133 ==
LOC: ER 15:25 → MICUSO 22:10 → 5WST 01-18 09:48
PROVIDERS: ADMIT Internal Medicine; ATTEND Internal Medicine
DX: J96.00 Acute respiratory failure, unspecified whether with hypoxia or hypercapnia (principal); I11.0 Hypertensive heart disease with heart failure; F14.10 Cocaine abuse, uncomplicated; E11.65 Type 2 diabetes mellitus with hyperglycemia; E66.01 Morbid (severe) obesity due to excess calories; E87.1 Hypo-osmolality and hyponatremia; E87.8 Other disorders of electrolyte and fluid balance, not elsewhere classified; I50.33 Acute on chronic diastolic (congestive) heart failure; I87.8 Other specified disorders of veins; Z53.29 Procedure and treatment not carried out because of patient's decision for other reasons; J44.1 Chronic obstructive pulmonary disease with (acute) exacerbation; Z87.891 Personal history of nicotine dependence; Z88.0 Allergy status to penicillin; Z88.6 Allergy status to analgesic agent; Z79.51 Long term (current) use of inhaled steroids; Z79.899 Other long term (current) drug therapy; Z71.3 Dietary counseling and surveillance; Z68.41 Body mass index [BMI] 40.0-44.9, adult
CPT/HCPCS: 36415; 71045; 80048; 80053; 80061; 80305; 82962; 83036; 83880; 84484; 85025; 93005; 94640; 96374; 99291; J1650; J1815; J1940; J7512

== ENCOUNTER 2020-08-07 12:18 | Emergency (ER) | payer OTHER ==
[~2020-08-07] VITALS: Ht 182.9 cm; Wt 91.0 kg
[2020-08-07 12:20] VITALS: BP 143/86
[2020-08-07] MEDS: KETOROLAC 30MG/ML VIAL IM ONE (13:29)
== END 2020-08-07 14:29 | disposition home or self-care (01) ==
LOC: ER 12:22
DX: M54.5 Low back pain (principal); M79.621 Pain in right upper arm; I11.0 Hypertensive heart disease with heart failure; I50.9 Heart failure, unspecified; J44.9 Chronic obstructive pulmonary disease, unspecified; J45.909 Unspecified asthma, uncomplicated; Z79.4 Long term (current) use of insulin; Z79.899 Other long term (current) drug therapy; Z88.0 Allergy status to penicillin
CPT/HCPCS: 96372; 99283; J1885

== ENCOUNTER 2020-08-14 07:37 | Emergency (ER) | payer OTHER ==
[~2020-08-14] VITALS: Ht 190.5 cm; Wt 127.0 kg
[2020-08-14] MEDS ORDERED: KETOROLAC 30MG/ML VIAL IM ONE (08:15)
[2020-08-14 09:26] VITALS: BP 118/78
== END 2020-08-14 09:27 | disposition home or self-care (01) ==
LOC: ER 07:37
DX: M54.5 Low back pain (principal); I11.0 Hypertensive heart disease with heart failure; I50.9 Heart failure, unspecified; J44.1 Chronic obstructive pulmonary disease with (acute) exacerbation; E11.9 Type 2 diabetes mellitus without complications; Z88.0 Allergy status to penicillin; Z88.6 Allergy status to analgesic agent
CPT/HCPCS: 93005; 96372; 99283; J1885

== ENCOUNTER 2020-08-19 09:59 | Emergency (ER) | payer OTHER ==
[~2020-08-19] VITALS: Ht 177.8 cm; Wt 100.0 kg
[2020-08-19] MEDS ORDERED: KETOROLAC 60MG/2ML VIAL IM STA (10:57)
[2020-08-19 11:19] VITALS: BP 152/99
== END 2020-08-19 11:22 | disposition home or self-care (01) ==
LOC: ER 09:59
DX: M54.5 Low back pain (principal); J44.9 Chronic obstructive pulmonary disease, unspecified; E11.9 Type 2 diabetes mellitus without complications; I11.0 Hypertensive heart disease with heart failure; I50.9 Heart failure, unspecified; Z79.4 Long term (current) use of insulin; Z88.0 Allergy status to penicillin; Z88.6 Allergy status to analgesic agent; Z91.81 History of falling
CPT/HCPCS: 96372; 99283; J1885

== ENCOUNTER 2020-08-22 09:33 | Emergency (ER) | payer MEDICAID, OTHER ==
[~2020-08-22] VITALS: Ht 177.8 cm; Wt 100.0 kg
[2020-08-22 09:34] VITALS: BP 150/99
[2020-08-22] MEDS ORDERED: KETOROLAC 30MG/ML VIAL IM ONE (10:00)
[2020-08-22] MEDS ORDERED: TOPUD MT (10:03)
[2020-08-22] MEDS ORDERED: IBUP-2028 MT (10:03)
== END 2020-08-22 10:15 | disposition home or self-care (01) ==
LOC: ER 10:00
DX: M54.5 Low back pain (principal); J45.909 Unspecified asthma, uncomplicated; I11.0 Hypertensive heart disease with heart failure; I50.9 Heart failure, unspecified; E11.9 Type 2 diabetes mellitus without complications; Z76.0 Encounter for issue of repeat prescription; Z79.4 Long term (current) use of insulin; Z88.0 Allergy status to penicillin
CPT/HCPCS: 96372; 99283; J1885

== ENCOUNTER 2020-08-24 12:14 | Emergency (ER) | payer OTHER, MEDICAID ==
[~2020-08-24] VITALS: Ht 172.7 cm; Wt 88.0 kg
[~2020-08-24 12:14] MED LIST changes: +IBUP-2028 MT; +TOPUD MT
[2020-08-24] MEDS ORDERED: HYDROCODONE/ACETAMINOPHEN 5/325MG TABLET PO ONE (14:00)
[2020-08-24] MEDS ORDERED: KETOROLAC 60MG/2ML VIAL IM ONE (14:00)
[2020-08-24] MEDS ORDERED: IBUP-2029 MT (15:24)
[2020-08-24 15:35] VITALS: BP 193/97
[2020-11-07] MEDS ORDERED: AMLO10TA80 MT (20:15)
[2020-11-07] MEDS ORDERED: ATOR20TA65 MT (20:15)
[2020-11-07] MEDS ORDERED: ALBU6.7H9 ORI (20:16)
[2020-11-07] MEDS ORDERED: TOBRAD LEFTEYE (20:16)
[2020-11-07] MEDS ORDERED: METF500T PO (20:16)
[2020-11-07] MEDS ORDERED: FURO40TA5 MT (20:16)
[2020-11-07] MEDS ORDERED: INSU100I28 SQ (20:16)
[2020-11-07] MEDS ORDERED: FLUT1DIS3 INH (20:16)
[2020-11-07] MEDS ORDERED: LOSA50TA3 PO (20:16)
== END 2020-08-24 15:37 | disposition home or self-care (01) ==
LOC: ER 12:14
DX: M54.5 Low back pain (principal); E11.9 Type 2 diabetes mellitus without complications; I11.0 Hypertensive heart disease with heart failure; I50.9 Heart failure, unspecified; J44.9 Chronic obstructive pulmonary disease, unspecified; Z88.6 Allergy status to analgesic agent; Z88.0 Allergy status to penicillin
CPT/HCPCS: 72100; 96372; 99283; J1885

== ENCOUNTER 2020-08-29 11:10 | Emergency (ER) | payer OTHER, MEDICAID ==
[~2020-08-29] VITALS: Ht 190.5 cm; Wt 86.0 kg
[~2020-08-29 11:10] MED LIST changes: +IBUP-2029 MT
[2020-08-29 11:12] VITALS: BP 163/7
[2020-08-29] MEDS ORDERED: KETOROLAC 60MG/2ML VIAL IM ONE (11:30)
== END 2020-08-29 11:38 | disposition home or self-care (01) ==
LOC: ER 11:35
DX: G89.29 Other chronic pain (principal); M54.9 Dorsalgia, unspecified; E11.9 Type 2 diabetes mellitus without complications; J44.9 Chronic obstructive pulmonary disease, unspecified; J45.909 Unspecified asthma, uncomplicated; I11.0 Hypertensive heart disease with heart failure; I50.9 Heart failure, unspecified; M19.90 Unspecified osteoarthritis, unspecified site; Z79.4 Long term (current) use of insulin; Z88.0 Allergy status to penicillin
CPT/HCPCS: 96372; 99283; J1885

== ENCOUNTER 2020-08-31 13:55 | Emergency (ER) | payer MEDICAID ==
[~2020-08-31] VITALS: Ht 190.5 cm; Wt 135.0 kg
[2020-08-31] MEDS ORDERED: KETOROLAC 60MG/2ML VIAL IM ONE (14:45)
[2020-08-31] MEDS ORDERED: IBUP-2028 MT (15:34)
[2020-08-31 15:41] VITALS: BP 130/78
== END 2020-08-31 15:41 | disposition home or self-care (01) ==
LOC: ER 14:26
DX: M54.89 Other dorsalgia (principal); G89.29 Other chronic pain; I11.0 Hypertensive heart disease with heart failure; I50.9 Heart failure, unspecified; E11.9 Type 2 diabetes mellitus without complications; J44.9 Chronic obstructive pulmonary disease, unspecified; J45.909 Unspecified asthma, uncomplicated; M19.90 Unspecified osteoarthritis, unspecified site; Z79.4 Long term (current) use of insulin; Z88.0 Allergy status to penicillin
CPT/HCPCS: 96372; 99283; J1885

== ENCOUNTER 2020-09-07 16:55 | Emergency (ER) | payer MEDICAID, OTHER ==
[~2020-09-07] VITALS: Ht 190.5 cm; Wt 124.0 kg
[2020-09-07 17:04] VITALS: BP 169/98
[2020-09-07] MEDS ORDERED: HYDR-4346 MT (18:41)
== END 2020-09-07 18:55 | disposition home or self-care (01) ==
LOC: ER 16:55
DX: M54.5 Low back pain (principal); M19.90 Unspecified osteoarthritis, unspecified site; J44.9 Chronic obstructive pulmonary disease, unspecified; E11.9 Type 2 diabetes mellitus without complications; I11.0 Hypertensive heart disease with heart failure; I50.9 Heart failure, unspecified; Z88.6 Allergy status to analgesic agent; Z88.0 Allergy status to penicillin
CPT/HCPCS: 99282

== ENCOUNTER 2020-12-08 15:05 | Emergency (ER) | payer OTHER ==
[~2020-12-08] VITALS: Ht 190.5 cm; Wt 135.0 kg
[~2020-12-08 15:05] MED LIST changes: +ALBU6.7H9 ORI; +FLUT1DIS3 INH; -GLIP5TAB12 PO; +HYDR-4346 MT; -INSLIS SUBCUT; +INSU100I28 SQ; -LANTUSUD SUBCUT; +METF500T PO; -P20 MT; +TOBRAD LEFTEYE
[2020-12-08 15:17] VITALS: BP 155/109
== END 2020-12-08 19:30 | disposition left against medical advice (07) ==
LOC: ER 15:05
DX: Z53.21 Procedure and treatment not carried out due to patient leaving prior to being seen by health care provider (principal); I49.9 Cardiac arrhythmia, unspecified
CPT/HCPCS: 93005

== ENCOUNTER 2021-02-11 20:38 | Emergency (ER) | payer OTHER ==
[~2021-02-11] VITALS: Ht 190.5 cm; Wt 146.5 kg
[2021-02-11 20:55] VITALS: BP 187/124
[2021-02-12] MEDS ORDERED: ALBUTEROL (0.083%) 2.5MG/3ML NEB HHN STA (00:02)
[2021-02-12] MEDS ORDERED: IPRATROPIUM BROMIDE (0.02%) 0.5MG/2.5ML NEB HHN STA (00:02)
[2021-02-12] MEDS ORDERED: FUROSEMIDE 40MG TABLET PO ONE (00:15)
[2021-02-12 00:34] LABS: BASOPHILS % 0.5 % (0.0-2.0); HEMATOCRIT. 39.8 % (36.0-48.0); HEMOGLOBIN. 13.9 g/dL (12.0-16.0); LYMPHOCYTES % 37.6 % (20.0-50.0); MEAN CORPUSCULAR HEMOGLOBIN 32.3 pg (28.0-32.0); MEAN CORPUSCULAR VOLUME 92.5 fL (81.0-99.0); MEAN PLATELET VOLUME 9.3 fl (7.4-10.4); MONOCYTES % 10.3 % (2.0-8.0); NEUTROPHILS % 50.6 % (40.0-76.0); PLATELET 244 x1000/uL (130-400); RED CELL DISTRIBUTION WIDTH 14.8 % (11.6-14.6)
[2021-02-12 00:40] LABS: CHLORIDE 105 mEq/L (98-107)
== END 2021-02-12 02:21 | disposition left against medical advice (07) ==
LOC: ER 20:38
DX: J44.9 Chronic obstructive pulmonary disease, unspecified (principal); E11.9 Type 2 diabetes mellitus without complications; I10 Essential (primary) hypertension; Z88.0 Allergy status to penicillin; Z79.899 Other long term (current) drug therapy; Z79.4 Long term (current) use of insulin
CPT/HCPCS: 36415; 71045; 80053; 83880; 84484; 85025; 93005; 94640; 99285; Z7610

== ENCOUNTER 2021-03-03 16:08 | Emergency (ER) | payer OTHER ==
[~2021-03-03] VITALS: Ht 191.8 cm; Wt 147.0 kg
[2021-03-03] MEDS ORDERED: NITROGLYCERIN 0.4MG TABLET SL SL PRN (17:15)
[2021-03-03] MEDS ORDERED: ASPIRIN 81MG TABLET PO ONE (17:15)
[2021-03-03 17:24] LABS: BASOPHILS % 0.2 % (0.0-2.0); EOSINOPHILS % 0.5 % (0.0-5.0); HEMATOCRIT. 42.5 % (36.0-48.0); HEMOGLOBIN. 14.6 g/dL (12.0-16.0); LYMPHOCYTES % 21.7 % (20.0-50.0); MEAN CORPUSCULAR HEMOGLOBIN 31.6 pg (28.0-32.0); MEAN CORPUSCULAR VOLUME 92.2 fL (81.0-99.0); MEAN PLATELET VOLUME 9.2 fl (7.4-10.4); MONOCYTES % 8.4 % (2.0-8.0); NEUTROPHILS % 69.2 % (40.0-76.0); PLATELET 241 x1000/uL (130-400); RED BLOOD CELL COUNT 4.62 mill/uL (4.2-5.4)
[2021-03-03 17:30] LABS: CHLORIDE 106 mEq/L (98-107)
[2021-03-03 18:36] LABS: *AMPHETAMINES SCREEN URINE NEGATIVE (NEGATIVE); *BARBITURATES SCREEN URINE NEGATIVE (NEGATIVE); *BENZODIAZEPINES SCREEN URINE NEGATIVE (NEGATIVE); *COCAINE SCREEN URINE PRESUMTIVE POSITIVE (NEGATIVE); OPIATES URINE SCREEN NEGATIVE (NEGATIVE)
[2021-03-03 18:37] LABS: CANNABINOID URINE SCREEN NEGATIVE (NEGATIVE); METHADONE URINE SCREEN NEGATIVE (NEGATIVE); PHENCYCLIDINE URINE SCREEN NEGATIVE (NEGATIVE)
[2021-03-03] MEDS ORDERED: POTASSIUM CHLORIDE 20MEQ TABLET SR PO ONE (19:15)
[2021-03-03] MEDS ORDERED: FUROSEMIDE 40MG TABLET PO ONE (19:15)
[2021-03-03] MEDS ORDERED: ALBUTEROL (0.5%) 2.5MG/0.5ML NEB HHN ONE (20:15)
[2021-03-03] MEDS ORDERED: FURO-152 MT (21:30)
[2021-03-03 21:32] VITALS: BP 145/76
== END 2021-03-03 21:32 | disposition home or self-care (01) ==
LOC: ER 16:08 → CANBEDREQ 22:54
DX: T40.5X1A Poisoning by cocaine, accidental (unintentional), initial encounter (principal); Y92.89 Other specified places as the place of occurrence of the external cause; R60.0 Localized edema; I11.0 Hypertensive heart disease with heart failure; I50.9 Heart failure, unspecified; J44.9 Chronic obstructive pulmonary disease, unspecified; E11.9 Type 2 diabetes mellitus without complications; Z79.899 Other long term (current) drug therapy
CPT/HCPCS: 36415; 71045; 80053; 80305; 83880; 84484; 85025; 93005; 94640; 99285; Z7610

== ENCOUNTER 2021-03-10 16:20 | Inpatient (IN) | payer OTHER ==
[~2021-03-10] VITALS: Ht 190.5 cm; Wt 148.3 kg
[~2021-03-10 16:20] MED LIST changes: +FURO-152 MT
[2021-03-10] MEDS ORDERED: METHYLPREDNISOLONE SOD SUCC 125 MG/2 ML VIAL IV STA (16:42)
[2021-03-10] MEDS ORDERED: ALBUTEROL (0.083%) 2.5MG/3ML NEB HHN STA (16:42)
[2021-03-10] MEDS ORDERED: CEFTRIAXONE 1 G PREMIX 50 ML IV ONE (16:45)
[2021-03-10] MEDS ORDERED: DOXYCYCLINE HYCLATE 100 MG/VIAL IV ONE (16:45)
[2021-03-10] MEDS ORDERED: MAGNESIUM 2 G PREMIX 50 ML IV ONE (16:45)
[2021-03-10] MEDS ORDERED: DOXYCYCLINE 100MG in DEXTROSE 5% WATER 100ML IV NR (17:00)
[2021-03-10] MEDS ORDERED: NITROGLYCERIN OINT 1GM/INCH UDPKT TD ONE (17:00)
[2021-03-10] MEDS ORDERED: FUROSEMIDE 100MG/10ML VIAL IVP ONE (17:00)
[2021-03-10] MEDS ORDERED: HYDRALAZINE 20MG/ML VIAL IV ONE ×2 (17:00→18:15)
[2021-03-10 17:46] LABS: BASOPHILS % 0.5 % (0.0-2.0); EOSINOPHILS % 0.5 % (0.0-5.0); HEMATOCRIT. 39.5 % (36.0-48.0); HEMOGLOBIN. 13.5 g/dL (12.0-16.0); LYMPHOCYTES % 25.7 % (20.0-50.0); MEAN CORPUSCULAR HEMOGLOBIN 31.2 pg (28.0-32.0); MEAN CORPUSCULAR VOLUME 90.8 fL (81.0-99.0); MONOCYTES % 9.3 % (2.0-8.0); PLATELET 253 x1000/uL (130-400); RED BLOOD CELL COUNT 4.35 mill/uL (4.2-5.4); RED CELL DISTRIBUTION WIDTH 14.7 % (11.6-14.6)
[2021-03-10 17:53] LABS: CHLORIDE 104 mEq/L (98-107)
[2021-03-10 18:53] LABS: BG BASE EXCESS 2.1 mmol/L (-2.0-2.0); BG CARBOXYHEMOGLOBIN 0.7 % (0.5-1.5); BG DEOXYHEMOGLOBIN 2.4 % (0.0-5.0); BG FRACTION INSPIRED OXYGEN 28; BG HCO3 ACT 26.2 mmol/L (22.0-26.0); BG METHEMOGLOBIN 0.2 % (0.0-1.5); BG OXYGEN SATURATION 97.6 % (92.0-98.5); BG OXYHEMOGLOBIN 96.7 % (94.0-97.0); BG PCO2 39.1 mmHg (35.0-45.0); BG PH 7.444 (7.350-7.450); BG PO2 95.1 mmHg (75.0-100.0); BG SAMPLE SITE RIGHT BRACHIAL; BG TOTAL HEMOGLOBIN 14.6 g/dL (12.0-18.0); BG VENT MODE NASAL CANNULA
[2021-03-10] MEDS ORDERED: POTASSIUM CHLORIDE INJ 40 MEQ in DEXT 5% WATER 250 ML IV NR (19:00)
[2021-03-10] MEDS ORDERED: ALBUTEROL (0.5%) 2.5MG/0.5ML NEB HHN ONE (19:03)
[2021-03-10] MEDS ORDERED: ALBUTEROL (0.083%) 2.5MG/3ML NEB ONE (19:04)
[2021-03-10] MEDS ORDERED: ENALAPRIL 2.5MG/2ML VIAL 2ML IV ONE (20:00)
[2021-03-10] MEDS ORDERED: ALBUTEROL (0.083%) 2.5MG/3ML NEB HHN ONE (20:00)
[2021-03-11] MEDS ORDERED: AMLODIPINE 10MG TABLET PO ONE (08:45)
[2021-03-11] MEDS ORDERED: AMLODIPINE 10MG TABLET PO SCH (08:50)
[2021-03-11] MEDS ORDERED: DEXTROSE 50% WATER 50ML SYRINGE IV PRN (09:45)
[2021-03-11] MEDS ORDERED: ONDANSETRON HCL 4MG/2ML INJ IV PRN (09:45)
[2021-03-11] MEDS ORDERED: ACETAMINOPHEN 325MG TABLET PO PRN (09:45)
[2021-03-11 10:09] VITALS: BP 177/99
[2021-03-11 10:13] VITALS: BP 177/99
[2021-03-11] MEDS: LOSARTAN POTASSIUM 100 MG TABLET PO SCH (10:21)
[2021-03-11] MEDS: IPRATROPIUM/ALBUTEROL 0.5-3(2.5)MG/3ML NEB HHN PRN (10:37)
[2021-03-11] MEDS: BLOOD SUGAR DIAGNOSTIC STRIP TEST SCH ×3 (11:36→21:36)
[2021-03-11] MEDS ORDERED: HYDRALAZINE HCL 100MG TABLET PO SCH (11:45)
[2021-03-11 11:50] VITALS: BP 170/95
[2021-03-11] MEDS: INSULIN LISPRO 100 UNITS/ML SUBCUT SCH ×3 (11:56→21:36)
[2021-03-11 16:00] VITALS: BP 153/88
[2021-03-11] MEDS ORDERED: METHYLPREDNISOLONE SOD SUCC 40 MG/ML VIAL IV NR (16:30)
[2021-03-11] MEDS ORDERED: INSULIN GLARGINE UD 100 UNITS/ML SYR SUBCUT NR (17:30)
[2021-03-11] MEDS: FUROSEMIDE 40MG/4ML VIAL IVP SCH (17:32)
[2021-03-11 20:00] VITALS: BP 179/98
[2021-03-11] MEDS: HYDRALAZINE HCL 100MG TABLET PO SCH (21:33)
[2021-03-11] MEDS: ENOXAPARIN 40MG/0.4ML SYR SUBCUT SCH (21:34)
[2021-03-12] VITALS: BP 149/80
[2021-03-12 04:00] VITALS: BP 144/83
[2021-03-12] MEDS: IPRATROPIUM/ALBUTEROL 0.5-3(2.5)MG/3ML NEB HHN PRN (05:04)
[2021-03-12] MEDS: BLOOD SUGAR DIAGNOSTIC STRIP TEST SCH ×4 (06:20→21:00)
[2021-03-12] MEDS: INSULIN LISPRO 100 UNITS/ML SUBCUT SCH ×5 (06:21→23:18)
[2021-03-12] MEDS: FUROSEMIDE 40MG/4ML VIAL IVP SCH ×2 (06:22→16:55)
[2021-03-12 08:00] VITALS: BP 154/93
[2021-03-12] MEDS: HYDRALAZINE HCL 100MG TABLET PO SCH ×2 (08:57→23:23)
[2021-03-12] MEDS: LOSARTAN POTASSIUM 100 MG TABLET PO SCH (08:57)
[2021-03-12] MEDS: ENOXAPARIN 40MG/0.4ML SYR SUBCUT SCH ×2 (08:58→23:15)
[2021-03-12] MEDS ORDERED: FUROSEMIDE 40MG/4ML VIAL IVP SCH (09:00)
[2021-03-12] MEDS ORDERED: INSULIN GLARGINE UD 100 UNITS/ML SYR SUBCUT SCH (10:00)
[2021-03-12] MEDS ORDERED: METHYLPREDNISOLONE SOD SUCC 40 MG/ML VIAL IV NR (11:15)
[2021-03-12 12:22] VITALS: BP 166/88
[2021-03-12 16:00] VITALS: BP 146/65
[2021-03-12] MEDS: IPRATROPIUM/ALBUTEROL 0.5-3(2.5)MG/3ML NEB HHN SCH ×4 (18:00→23:44)
[2021-03-12 20:00] VITALS: BP 147/82
[2021-03-12] MEDS: INSULIN GLARGINE UD 100 UNITS/ML SYR SUBCUT SCH (23:18)
[2021-03-13] VITALS: BP 164/84
[2021-03-13 04:00] VITALS: BP 121/76
[2021-03-13] MEDS: IPRATROPIUM/ALBUTEROL 0.5-3(2.5)MG/3ML NEB HHN SCH ×5 (04:04→20:00)
[2021-03-13] MEDS: BLOOD SUGAR DIAGNOSTIC STRIP TEST SCH ×4 (06:40→21:59)
[2021-03-13] MEDS: FUROSEMIDE 40MG/4ML VIAL IVP SCH ×3 (07:15→18:12)
[2021-03-13] MEDS: INSULIN LISPRO 100 UNITS/ML SUBCUT SCH ×4 (07:51→21:23)
[2021-03-13 08:00] VITALS: BP 141/84
[2021-03-13] MEDS ORDERED: GLIPIZIDE 5MG TABLET PO SCH (08:00)
[2021-03-13] MEDS ORDERED: FUROSEMIDE 40MG TABLET PO SCH (08:45)
[2021-03-13] MEDS: LOSARTAN POTASSIUM 100 MG TABLET PO SCH (09:06)
[2021-03-13] MEDS: ENOXAPARIN 40MG/0.4ML SYR SUBCUT SCH ×2 (09:06→21:22)
[2021-03-13] MEDS: HYDRALAZINE HCL 100MG TABLET PO SCH ×2 (09:06→21:22)
[2021-03-13 10:48] LABS: CHLORIDE 97 mEq/L (98-107)
[2021-03-13] MEDS: INSULIN GLARGINE UD 100 UNITS/ML SYR SUBCUT SCH ×2 (10:51→22:00)
[2021-03-13 12:00] VITALS: BP 146/95
[2021-03-13] MEDS ORDERED: HYDR100T26 PO (12:17)
[2021-03-13] MEDS ORDERED: FURO40TA5 MT (12:17)
[2021-03-13] MEDS ORDERED: LOSA100T3 PO (12:17)
[2021-03-13] MEDS ORDERED: ALBU18HF2 IH (12:17)
[2021-03-13] MEDS ORDERED: AMLO10TA80 MT (12:17)
[2021-03-13] MEDS ORDERED: FLUT1DIS3 INH (12:17)
[2021-03-13] MEDS ORDERED: IPRA3AMP9 NEB (12:18)
[2021-03-13] MEDS ORDERED: KETOROLAC 15MG/ML VIAL IV PRN (13:00)
[2021-03-13 16:00] VITALS: BP 129/89
[2021-03-13 20:00] VITALS: BP 139/93
[2021-03-14] VITALS: BP 112/61
[2021-03-14] MEDS: IPRATROPIUM/ALBUTEROL 0.5-3(2.5)MG/3ML NEB HHN SCH ×5 (04:00→12:34)
[2021-03-14] MEDS: BLOOD SUGAR DIAGNOSTIC STRIP TEST SCH ×2 (06:28→11:19)
[2021-03-14] MEDS: INSULIN LISPRO 100 UNITS/ML SUBCUT SCH ×2 (06:38→11:30)
[2021-03-14] MEDS: FUROSEMIDE 40MG/4ML VIAL IVP SCH (06:41)
[2021-03-14 08:00] VITALS: BP 124/65
[2021-03-14] MEDS: LOSARTAN POTASSIUM 100 MG TABLET PO SCH (09:42)
[2021-03-14] MEDS: HYDRALAZINE HCL 100MG TABLET PO SCH (09:42)
[2021-03-14] MEDS: ENOXAPARIN 40MG/0.4ML SYR SUBCUT SCH (09:43)
[2021-03-14] MEDS: INSULIN GLARGINE UD 100 UNITS/ML SYR SUBCUT SCH (09:44)
[2021-03-14 10:44] VITALS: BP 124/65
[2021-03-14 12:00] VITALS: BP 139/56
== END 2021-03-14 15:30 | disposition home or self-care (01) | DRG 194 ==
LOC: ER 16:20 → MICUSO 22:21 → EDBEDREQ 22:24 → EDBEDREQTM 22:24 → 7EST 03-11 07:43
PROVIDERS: ADMIT Internal Medicine; ATTEND Internal Medicine
DX: I11.0 Hypertensive heart disease with heart failure (principal); J44.1 Chronic obstructive pulmonary disease with (acute) exacerbation; I50.33 Acute on chronic diastolic (congestive) heart failure; I16.0 Hypertensive urgency; J45.901 Unspecified asthma with (acute) exacerbation; E11.9 Type 2 diabetes mellitus without complications; E87.6 Hypokalemia; Z20.822 Contact with and (suspected) exposure to COVID-19; E66.01 Morbid (severe) obesity due to excess calories; M48.061 Spinal stenosis, lumbar region without neurogenic claudication; Z88.0 Allergy status to penicillin; Z68.41 Body mass index [BMI] 40.0-44.9, adult; Z79.899 Other long term (current) drug therapy; Z71.3 Dietary counseling and surveillance; Z91.14 Patient's other noncompliance with medication regimen
CPT/HCPCS: 36415; 36600; 71045; 72131; 80048; 80053; 82375; 82805; 82962; 83880; 84484; 85025; 87426; 93005; 94640; 99291; J0360; J0696; J1650; J1815; J1940; J2920; J2930; J3475; J3480; J3490; J7060; A4315

== ENCOUNTER 2021-03-22 14:48 | Emergency (ER) | payer OTHER ==
[~2021-03-22] VITALS: Ht 190.5 cm; Wt 103.0 kg
[~2021-03-22 14:48] MED LIST changes: +HYDR100T26 PO; +IPRA3AMP9 NEB; +LOSA100T3 PO; -TOBRAD LEFTEYE
[2021-03-22] MEDS ORDERED: ALBUTEROL (0.083%) 2.5MG/3ML NEB HHN STA ×2 (15:18→16:22)
[2021-03-22] MEDS ORDERED: PREDNISONE 20MG TABLET PO STA (15:18)
[2021-03-22] MEDS ORDERED: IPRATROPIUM BROMIDE (0.02%) 0.5MG/2.5ML NEB HHN STA ×2 (15:18→16:22)
[2021-03-22 17:05] VITALS: BP 140/76
[2021-03-22] MEDS ORDERED: IPRA3AMP9 HHN (18:13)
[2021-03-22] MEDS ORDERED: P20 MT (18:13)
== END 2021-03-22 18:37 | disposition home or self-care (01) ==
LOC: ER 14:48
DX: J44.1 Chronic obstructive pulmonary disease with (acute) exacerbation (principal); E11.9 Type 2 diabetes mellitus without complications; I11.0 Hypertensive heart disease with heart failure; I50.9 Heart failure, unspecified; R94.31 Abnormal electrocardiogram [ECG] [EKG]; Z88.0 Allergy status to penicillin
CPT/HCPCS: 71045; 93005; 94640; 99284; J7512; Z7610

== ENCOUNTER 2021-03-24 17:03 | Inpatient (IN) | payer OTHER ==
[~2021-03-24] VITALS: Ht 190.5 cm; Wt 151.0 kg
[~2021-03-24 17:03] MED LIST changes: +P20 MT
[2021-03-24] MEDS ORDERED: IPRATROPIUM BROMIDE (0.02%) 0.5MG/2.5ML NEB HHN STA (19:32)
[2021-03-24] MEDS ORDERED: METHYLPREDNISOLONE SOD SUCC 125 MG/2 ML VIAL IV STA (19:32)
[2021-03-24] MEDS ORDERED: ALBUTEROL (0.083%) 2.5MG/3ML NEB HHN STA (19:32)
[2021-03-24] MEDS ORDERED: ASPIRIN 81MG TABLET PO ONE (19:45)
[2021-03-24] MEDS ORDERED: FUROSEMIDE 40MG/4ML VIAL IV ONE (19:45)
[2021-03-24] MEDS ORDERED: NITROGLYCERIN OINT 1GM/INCH UDPKT TD ONE (19:45)
[2021-03-24 19:55] LABS: BASOPHILS % 0.3 % (0.0-2.0); EOSINOPHILS % 0.2 % (0.0-5.0); HEMATOCRIT. 40.5 % (36.0-48.0); LYMPHOCYTES % 16.8 % (20.0-50.0); MEAN CORPUSCULAR HEMOGLOBIN 31.7 pg (28.0-32.0); MEAN CORPUSCULAR VOLUME 91.2 fL (81.0-99.0); MEAN PLATELET VOLUME 9.2 fl (7.4-10.4); MONOCYTES % 6.7 % (2.0-8.0); PLATELET 300 x1000/uL (130-400); RED BLOOD CELL COUNT 4.44 mill/uL (4.2-5.4); RED CELL DISTRIBUTION WIDTH 14.2 % (11.6-14.6)
[2021-03-24 20:00] LABS: CHLORIDE 100 mEq/L (98-107)
[2021-03-24 20:05] LABS: PARTIAL THROMBOPLASTIN TIME 23.1 sec (23.4-31.0); PROTHROMBIN TIME 10.3 sec (9.6-11.0)
[2021-03-25] MEDS ORDERED: IPRATROPIUM/ALBUTEROL 0.5-3(2.5)MG/3ML NEB HHN PRN (09:00)
[2021-03-25] MEDS ORDERED: INSULIN LISPRO (HUMALOG) 300UNITS/3ML VIAL SUBCUT PRN (09:00)
[2021-03-25 09:29] VITALS: BP 159/86
[2021-03-25] MEDS ORDERED: ACETAMINOPHEN 325MG TABLET PO PRN (10:30)
[2021-03-25] MEDS ORDERED: MAGNESIUM/ALUMINUM HYDROXIDE/SIMETHICONE 30ML UDC PO PRN (10:30)
[2021-03-25] MEDS ORDERED: DEXTROSE 50% WATER 50ML SYRINGE IV PRN ×3 (10:30→12:15)
[2021-03-25] MEDS ORDERED: ALBUTEROL 6.7GM HFA INHALER ORI PRN (10:30)
[2021-03-25] MEDS ORDERED: HYDROCODONE/ACETAMINOPHEN 5/325MG TABLET PO PRN (10:30)
[2021-03-25] MEDS ORDERED: CLONIDINE 0.1MG TABLET PO PRN (10:30)
[2021-03-25] MEDS: PREDNISONE 20MG TABLET PO SCH (11:51)
[2021-03-25] MEDS: AMLODIPINE 10MG TABLET PO SCH (11:51)
[2021-03-25] MEDS: LOSARTAN POTASSIUM 100 MG TABLET PO SCH (11:51)
[2021-03-25] MEDS: ENOXAPARIN 30MG/0.3ML SYR SUBCUT SCH ×2 (11:52→20:58)
[2021-03-25] MEDS: HYDRALAZINE HCL 100MG TABLET PO SCH ×2 (11:56→20:57)
[2021-03-25 12:00] VITALS: BP 170/92
[2021-03-25] MEDS: BLOOD SUGAR DIAGNOSTIC STRIP TEST SCH ×3 (12:20→21:00)
[2021-03-25] MEDS ORDERED: BLOOD SUGAR DIAGNOSTIC STRIP TEST SCH (12:20)
[2021-03-25] MEDS ORDERED: INSULIN LISPRO 100 UNITS/ML SUBCUT SCH (12:20)
[2021-03-25] MEDS: INSULIN LISPRO 100 UNITS/ML SUBCUT SCH ×4 (12:28→21:00)
[2021-03-25] MEDS: IPRATROPIUM/ALBUTEROL 0.5-3(2.5)MG/3ML NEB HHN SCH ×3 (12:50→20:43)
[2021-03-25] MEDS ORDERED: INSULIN LISPRO 100 UNITS/ML SUBCUT PRN (14:54)
[2021-03-25] MEDS ORDERED: NALOXONE HCL 0.4MG/ML VIAL IV PRN (15:00)
[2021-03-25 16:00] VITALS: BP 155/62
[2021-03-25] MEDS ORDERED: METFORMIN HCL 500MG TABLET PO SCH (17:50)
[2021-03-25 20:00] VITALS: BP 153/87
[2021-03-25] MEDS ORDERED: INSULIN LISPRO 100 UNITS/ML SUBCUT NR (20:30)
[2021-03-25] MEDS: ATORVASTATIN CALCIUM 20MG TABLET PO SCH (20:57)
[2021-03-25] MEDS ORDERED: INSULIN GLARGINE UD 100 UNITS/ML SYR SUBCUT SCH ×2 (21:00→22:00)
[2021-03-26] VITALS: BP 112/58
[2021-03-26] MEDS: IPRATROPIUM/ALBUTEROL 0.5-3(2.5)MG/3ML NEB HHN SCH ×6 (00:13→21:03)
[2021-03-26 00:52] LABS: CLARITY URINE CLEAR (CLEAR); COLOR URINE YELLOW (YELLOW); KETONES URINE NEGATIVE (NEGATIVE); LEUKOCYTE ESTERASE URINE NEGATIVE (NEGATIVE); NITRITE URINE NEGATIVE (NEGATIVE); OCCULT BLOOD URINE NEGATIVE (NEGATIVE); PROTEIN URINE NEGATIVE (NEGATIVE); SPECIFIC GRAVITY URINE 1.023 (1.005-1.030); UROBILINOGEN URINE 0.2 E.U./dL (0.2-1.0)
[2021-03-26 04:00] VITALS: BP 128/83
[2021-03-26 06:25] LABS: BASOPHILS % 0.4 % (0.0-2.0); HEMATOCRIT. 40.5 % (36.0-48.0); LYMPHOCYTES % 16.5 % (20.0-50.0); MEAN CORPUSCULAR HEMOGLOBIN 31.7 pg (28.0-32.0); MEAN CORPUSCULAR VOLUME 91.7 fL (81.0-99.0); MEAN PLATELET VOLUME 10.3 fl (7.4-10.4); MONOCYTES % 7.5 % (2.0-8.0); NEUTROPHILS % 75.6 % (40.0-76.0); PLATELET 291 x1000/uL (130-400); RED BLOOD CELL COUNT 4.41 mill/uL (4.2-5.4)
[2021-03-26 06:30] LABS: CHLORIDE 98 mEq/L (98-107)
[2021-03-26] MEDS ORDERED: INSULIN LISPRO 100 UNITS/ML SUBCUT ONE (06:30)
[2021-03-26] MEDS: OMEPRAZOLE 20MG CAPSULE EXTENDED RELEASE PO SCH (06:38)
[2021-03-26 06:39] LABS: PHOSPHORUS 4.2 mg/dL (2.5-4.9)
[2021-03-26] MEDS: BLOOD SUGAR DIAGNOSTIC STRIP TEST SCH ×4 (06:39→21:17)
[2021-03-26] MEDS: INSULIN LISPRO 100 UNITS/ML SUBCUT SCH ×7 (06:39→21:22)
[2021-03-26 08:16] VITALS: BP 139/79
[2021-03-26] MEDS: LOSARTAN POTASSIUM 100 MG TABLET PO SCH (08:26)
[2021-03-26] MEDS: HYDRALAZINE HCL 100MG TABLET PO SCH ×2 (08:26→21:00)
[2021-03-26] MEDS: PREDNISONE 20MG TABLET PO SCH (08:26)
[2021-03-26] MEDS: ENOXAPARIN 30MG/0.3ML SYR SUBCUT SCH (08:27)
[2021-03-26] MEDS: AMLODIPINE 10MG TABLET PO SCH (08:27)
[2021-03-26 12:30] VITALS: BP 161/88
[2021-03-26] MEDS: INSULIN GLARGINE UD 100 UNITS/ML SYR SUBCUT SCH ×2 (14:00→21:21)
[2021-03-26 16:30] VITALS: BP 137/53
[2021-03-26 20:17] VITALS: BP 108/78
[2021-03-26] MEDS: ENOXAPARIN 40MG/0.4ML SYR SUBCUT SCH (21:20)
[2021-03-26] MEDS: ATORVASTATIN CALCIUM 20MG TABLET PO SCH (21:20)
[2021-03-27] VITALS: BP 135/85
[2021-03-27] MEDS: IPRATROPIUM/ALBUTEROL 0.5-3(2.5)MG/3ML NEB HHN SCH ×6 (00:46→21:00)
[2021-03-27 04:00] VITALS: BP 134/67
[2021-03-27 06:07] LABS: BASOPHILS % 0.3 % (0.0-2.0); EOSINOPHILS % 0.2 % (0.0-5.0); HEMATOCRIT. 40.5 % (36.0-48.0); HEMOGLOBIN. 13.6 g/dL (12.0-16.0); LYMPHOCYTES % 26.4 % (20.0-50.0); MEAN CORPUSCULAR HEMOGLOBIN 31.5 pg (28.0-32.0); MEAN CORPUSCULAR VOLUME 93.5 fL (81.0-99.0); MEAN PLATELET VOLUME 9.7 fl (7.4-10.4); MONOCYTES % 8.2 % (2.0-8.0); NEUTROPHILS % 64.9 % (40.0-76.0); PLATELET 295 x1000/uL (130-400); RED BLOOD CELL COUNT 4.33 mill/uL (4.2-5.4); RED CELL DISTRIBUTION WIDTH 14.1 % (11.6-14.6)
[2021-03-27 06:10] LABS: CHLORIDE 97 mEq/L (98-107)
[2021-03-27] MEDS: INSULIN LISPRO 100 UNITS/ML SUBCUT SCH ×7 (06:28→21:08)
[2021-03-27] MEDS: OMEPRAZOLE 20MG CAPSULE EXTENDED RELEASE PO SCH (06:28)
[2021-03-27] MEDS: BLOOD SUGAR DIAGNOSTIC STRIP TEST SCH ×4 (06:29→21:11)
[2021-03-27 08:43] VITALS: BP 138/86
[2021-03-27] MEDS: ENOXAPARIN 40MG/0.4ML SYR SUBCUT SCH ×2 (08:55→21:09)
[2021-03-27] MEDS: PREDNISONE 20MG TABLET PO SCH (08:55)
[2021-03-27] MEDS: LOSARTAN POTASSIUM 100 MG TABLET PO SCH (08:56)
[2021-03-27] MEDS: AMLODIPINE 10MG TABLET PO SCH (08:56)
[2021-03-27] MEDS: HYDRALAZINE HCL 100MG TABLET PO SCH ×2 (08:57→21:06)
[2021-03-27] MEDS: INSULIN GLARGINE UD 100 UNITS/ML SYR SUBCUT SCH ×2 (10:41→21:10)
[2021-03-27] MEDS: FUROSEMIDE 100MG/10ML VIAL IVP SCH ×2 (10:42→17:39)
[2021-03-27 11:51] VITALS: BP 121/78
[2021-03-27 16:26] VITALS: BP 127/85
[2021-03-27 20:00] VITALS: BP 128/79
[2021-03-27] MEDS: ATORVASTATIN CALCIUM 20MG TABLET PO SCH (21:06)
[2021-03-27] MEDS: FAMOTIDINE 20MG TABLET PO SCH (21:08)
[2021-03-28] VITALS: BP 119/79
[2021-03-28 04:00] VITALS: BP 135/88
[2021-03-28] MEDS: IPRATROPIUM/ALBUTEROL 0.5-3(2.5)MG/3ML NEB HHN SCH ×6 (04:00→21:20)
[2021-03-28] MEDS: FUROSEMIDE 100MG/10ML VIAL IVP SCH ×2 (06:18→18:24)
[2021-03-28] MEDS: INSULIN LISPRO 100 UNITS/ML SUBCUT SCH ×8 (06:19→21:00)
[2021-03-28] MEDS: BLOOD SUGAR DIAGNOSTIC STRIP TEST SCH ×4 (07:20→21:18)
[2021-03-28 08:00] VITALS: BP 130/96
[2021-03-28] MEDS: PREDNISONE 20MG TABLET PO SCH (09:22)
[2021-03-28] MEDS: AMLODIPINE 10MG TABLET PO SCH (09:22)
[2021-03-28] MEDS: HYDRALAZINE HCL 100MG TABLET PO SCH ×2 (09:22→21:18)
[2021-03-28] MEDS: FAMOTIDINE 20MG TABLET PO SCH ×2 (09:22→21:17)
[2021-03-28] MEDS: LOSARTAN POTASSIUM 100 MG TABLET PO SCH (09:23)
[2021-03-28] MEDS: ENOXAPARIN 40MG/0.4ML SYR SUBCUT SCH ×2 (09:23→21:18)
[2021-03-28] MEDS: INSULIN GLARGINE UD 100 UNITS/ML SYR SUBCUT SCH ×2 (09:24→21:21)
[2021-03-28 12:00] VITALS: BP 125/75
[2021-03-28 20:00] VITALS: BP 126/73
[2021-03-28] MEDS ORDERED: INSULIN LISPRO 100 UNITS/ML SUBCUT NR (21:15)
[2021-03-28] MEDS: ATORVASTATIN CALCIUM 20MG TABLET PO SCH (21:17)
[2021-03-29] VITALS: BP 132/87
[2021-03-29] MEDS: IPRATROPIUM/ALBUTEROL 0.5-3(2.5)MG/3ML NEB HHN SCH ×4 (00:58→12:26)
[2021-03-29 04:00] VITALS: BP 120/85
[2021-03-29] MEDS: FUROSEMIDE 100MG/10ML VIAL IVP SCH (06:28)
[2021-03-29] MEDS: BLOOD SUGAR DIAGNOSTIC STRIP TEST SCH ×2 (06:28→12:20)
[2021-03-29] MEDS: INSULIN LISPRO 100 UNITS/ML SUBCUT SCH ×3 (07:50→12:20)
[2021-03-29 08:00] VITALS: BP 142/87
[2021-03-29] MEDS: FAMOTIDINE 20MG TABLET PO SCH (08:59)
[2021-03-29] MEDS: LOSARTAN POTASSIUM 100 MG TABLET PO SCH (09:00)
[2021-03-29] MEDS: HYDRALAZINE HCL 100MG TABLET PO SCH (09:00)
[2021-03-29] MEDS: AMLODIPINE 10MG TABLET PO SCH (09:00)
[2021-03-29] MEDS: ENOXAPARIN 40MG/0.4ML SYR SUBCUT SCH (09:00)
[2021-03-29] MEDS: PREDNISONE 20MG TABLET PO SCH (09:00)
[2021-03-29] MEDS: INSULIN GLARGINE UD 100 UNITS/ML SYR SUBCUT SCH (10:53)
[2021-03-29 12:00] VITALS: BP 135/90
== END 2021-03-29 12:40 | disposition left against medical advice (07) | DRG 140 ==
LOC: ER 17:03 → MICUSO 03-25 03:16 → 6WST 03-25 08:26
PROVIDERS: ADMIT Internal Medicine; ATTEND Internal Medicine
DX: J44.1 Chronic obstructive pulmonary disease with (acute) exacerbation (principal); I50.33 Acute on chronic diastolic (congestive) heart failure; R65.10 Systemic inflammatory response syndrome (SIRS) of non-infectious origin without acute organ dysfunction; I11.0 Hypertensive heart disease with heart failure; E87.1 Hypo-osmolality and hyponatremia; E11.65 Type 2 diabetes mellitus with hyperglycemia; D72.829 Elevated white blood cell count, unspecified; E66.9 Obesity, unspecified; E87.6 Hypokalemia; M48.061 Spinal stenosis, lumbar region without neurogenic claudication; Z53.29 Procedure and treatment not carried out because of patient's decision for other reasons; Z20.822 Contact with and (suspected) exposure to COVID-19; Z68.41 Body mass index [BMI] 40.0-44.9, adult; Z71.3 Dietary counseling and surveillance; Z88.0 Allergy status to penicillin; Z79.899 Other long term (current) drug therapy; Z79.52 Long term (current) use of systemic steroids
CPT/HCPCS: 36415; 71045; 80048; 80053; 81003; 82962; 83036; 83735; 83880; 84100; 84439; 84443; 84484; 85025; 87426; 93005; 93970; 94640; 94644; 99285; J1650; J1815; J1940; J2930; J7512

== ENCOUNTER 2021-09-18 12:27 | Inpatient (IN) | payer OTHER ==
[~2021-09-18] VITALS: Ht 185.4 cm; Wt 140.6 kg
[~2021-09-18 12:27] MED LIST changes: +ALBU2.5V13 NEB; +AMLO10TA80 PO; +AMLO5TAB88 MT; +FURO80TA87 MT; +HYDR-4001 PO; +INSLIS SUBCUT; +LANTUSUD SUBCUT; +LIP40 PO; +METF-414 PO; +POTA20TA82 PO
[2021-09-18] MEDS ORDERED: IPRATROPIUM BROMIDE (0.02%) 0.5MG/2.5ML NEB HHN STA (15:04)
[2021-09-18] MEDS ORDERED: METHYLPREDNISOLONE SOD SUCC 125 MG/2 ML VIAL IV STA (15:04)
[2021-09-18 15:32] LABS: CHLORIDE 95 mEq/L (98-107)
[2021-09-18] MEDS: ALBUTEROL (0.083%) 2.5MG/3ML NEB HHN SCH ×2 (16:27→17:15)
[2021-09-18] MEDS ORDERED: SODIUM CHLORIDE 0.9% 1,000 ML IV ONE ×2 (16:45→22:45)
[2021-09-18] MEDS ORDERED: LIDOCAINE HCL 1% 20ML VIAL (Pyxis) INJ INFIL ONE (16:45)
[2021-09-18 17:03] LABS: BASOPHILS % 0.4 % (0.0-2.0); EOSINOPHILS % 0.3 % (0.0-5.0); HEMATOCRIT. 40.4 % (36.0-48.0); HEMOGLOBIN. 13.9 g/dL (12.0-16.0); MEAN CORPUSCULAR HEMOGLOBIN 31.5 pg (28.0-32.0); MEAN CORPUSCULAR VOLUME 91.6 fL (81.0-99.0); MEAN PLATELET VOLUME 9.6 fl (7.4-10.4); MONOCYTES % 9.6 % (2.0-8.0); NEUTROPHILS % 66.7 % (40.0-76.0); PLATELET 243 x1000/uL (130-400); RED BLOOD CELL COUNT 4.41 mill/uL (4.2-5.4); RED CELL DISTRIBUTION WIDTH 14.8 % (11.6-14.6)
[2021-09-18] MEDS ORDERED: LIDOCAINE HCL/PF 1% 2ML VIAL INFIL NR (17:15)
[2021-09-18] MEDS ORDERED: LIDOCAINE HCL/EPINEPHRINE 1%-EPI 1:100,000 20 ML VIAL INFIL ONE ×3 (18:00)
[2021-09-18] MEDS ORDERED: POTASSIUM CHLORIDE INJ 40 MEQ in DEXT 5% WATER 250 ML IV ONE (19:30)
[2021-09-18] MEDS ORDERED: KCL 20MEQ/100ML PREMIX 100 ML IV ONE (19:30)
[2021-09-18] MEDS ORDERED: INSULIN REGULAR (HUMULIN R) 300UNITS/3ML VIAL IV ONE ×3 (19:30→22:45)
[2021-09-18] MEDS ORDERED: SULFAMETHOXAZOLE/TRIMETHOPRIM 800/160MG TABLET PO ONE (20:30)
[2021-09-18] MEDS: KCL 20MEQ/100ML X 2 FOR TOTAL KCL 40MEQ/200ML IV SCH ×2 (20:30→22:30)
[2021-09-19] MEDS ORDERED: SODIUM CHLORIDE 0.9% 1,000 ML IV ONE (00:45)
[2021-09-19 08:00] VITALS: BP 153/92
[2021-09-19] MEDS ORDERED: ONDANSETRON HCL 4MG/2ML INJ IV PRN (09:00)
[2021-09-19] MEDS ORDERED: INSULIN GLARGINE UD 100 UNITS/ML SYR SUBCUT NR (09:00)
[2021-09-19] MEDS ORDERED: DEXTROSE 50% WATER 50ML SYRINGE IV PRN (09:00)
[2021-09-19] MEDS ORDERED: NALOXONE HCL 0.4MG/ML VIAL IV PRN (09:30)
[2021-09-19] MEDS: LEVOFLOXACIN 500MG TABLET PO SCH (10:35)
[2021-09-19] MEDS: SULFAMETHOXAZOLE/TRIMETHOPRIM 800/160MG TABLET PO SCH ×2 (10:35→21:34)
[2021-09-19] MEDS: FUROSEMIDE 40MG/4ML VIAL IVP SCH ×2 (10:36→16:43)
[2021-09-19 12:00] VITALS: BP 163/100
[2021-09-19] MEDS: BLOOD SUGAR DIAGNOSTIC STRIP TEST SCH ×3 (12:10→21:47)
[2021-09-19] MEDS: HYDROCODONE/ACETAMINOPHEN 5/325MG TABLET PO PRN ×2 (12:45→18:42)
[2021-09-19] MEDS: AMLODIPINE 10MG TABLET PO SCH (12:46)
[2021-09-19] MEDS: INSULIN LISPRO 100 UNITS/ML SUBCUT SCH ×5 (13:19→21:42)
[2021-09-19] MEDS: IPRATROPIUM/ALBUTEROL 0.5-3(2.5)MG/3ML NEB HHN PRN (14:55)
[2021-09-19 16:00] VITALS: BP 140/87
[2021-09-19] MEDS: DIPHENHYDRAMINE 25MG CAPSULE PO PRN (16:43)
[2021-09-19 20:00] VITALS: BP 135/87
[2021-09-19] MEDS ORDERED: CLOTRIMAZOLE 1% VAGINAL CREAM 45GM VG SCH (21:00)
[2021-09-19] MEDS: INSULIN GLARGINE UD 100 UNITS/ML SYR SUBCUT SCH (21:38)
[2021-09-20] VITALS: BP 129/80
[2021-09-20 04:00] VITALS: BP 140/72
[2021-09-20] MEDS: DIPHENHYDRAMINE 25MG CAPSULE PO PRN (06:26)
[2021-09-20] MEDS: BLOOD SUGAR DIAGNOSTIC STRIP TEST SCH ×2 (06:37→12:09)
[2021-09-20] MEDS: INSULIN LISPRO 100 UNITS/ML SUBCUT SCH ×4 (06:37→12:23)
[2021-09-20 06:47] LABS: *AMPHETAMINES SCREEN URINE NEGATIVE (NEGATIVE); *BARBITURATES SCREEN URINE NEGATIVE (NEGATIVE); *BENZODIAZEPINES SCREEN URINE NEGATIVE (NEGATIVE); *COCAINE SCREEN URINE NEGATIVE (NEGATIVE)
[2021-09-20 06:48] LABS: CANNABINOID URINE SCREEN NEGATIVE (NEGATIVE); METHADONE URINE SCREEN NEGATIVE (NEGATIVE); OPIATES URINE SCREEN PRESUMTIVE POSITIVE (NEGATIVE); PHENCYCLIDINE URINE SCREEN NEGATIVE (NEGATIVE)
[2021-09-20] MEDS: IPRATROPIUM/ALBUTEROL 0.5-3(2.5)MG/3ML NEB HHN PRN ×2 (07:52→12:58)
[2021-09-20 08:00] VITALS: BP 145/88
[2021-09-20] MEDS: AMLODIPINE 10MG TABLET PO SCH (08:58)
[2021-09-20] MEDS: SULFAMETHOXAZOLE/TRIMETHOPRIM 800/160MG TABLET PO SCH (08:58)
[2021-09-20] MEDS: FUROSEMIDE 40MG/4ML VIAL IVP SCH (08:58)
[2021-09-20] MEDS: INSULIN GLARGINE UD 100 UNITS/ML SYR SUBCUT SCH (09:54)
[2021-09-20] MEDS ORDERED: DOCUSATE SODIUM 250MG CAPSULE PO SCH (10:00)
[2021-09-20] MEDS: LEVOFLOXACIN 500MG TABLET PO SCH (11:06)
[2021-09-20 12:00] VITALS: BP 115/73
[2021-09-20 13:16] VITALS: BP 115/73
[2021-09-20] MEDS ORDERED: GLIP10TA10 MT (14:09)
== END 2021-09-20 14:18 | disposition home or self-care (01) | DRG 194 ==
LOC: ER 15:03 → MICUSO 09-19 00:41 → 8WST 09-19 06:11
PROVIDERS: ADMIT Internal Medicine; ATTEND Internal Medicine
PROC: 0Y9C0ZZ Drainage of Right Upper Leg, Open Approach (ICD-10-PCS; principal; 2021-09-19)
DX: I11.0 Hypertensive heart disease with heart failure (principal); E44.1 Mild protein-calorie malnutrition; L02.415 Cutaneous abscess of right lower limb; E87.1 Hypo-osmolality and hyponatremia; L03.115 Cellulitis of right lower limb; J44.1 Chronic obstructive pulmonary disease with (acute) exacerbation; E87.8 Other disorders of electrolyte and fluid balance, not elsewhere classified; I50.33 Acute on chronic diastolic (congestive) heart failure; B37.9 Candidiasis, unspecified; E11.65 Type 2 diabetes mellitus with hyperglycemia; E66.9 Obesity, unspecified; Z82.49 Family history of ischemic heart disease and other diseases of the circulatory system; Z83.3 Family history of diabetes mellitus; Z91.19 Patient's noncompliance with other medical treatment and regimen; Z88.0 Allergy status to penicillin; Z88.8 Allergy status to other drugs, medicaments and biological substances; Z79.4 Long term (current) use of insulin; Z79.899 Other long term (current) drug therapy; Z71.3 Dietary counseling and surveillance; Z68.41 Body mass index [BMI] 40.0-44.9, adult
CPT/HCPCS: 36415; 71045; 80053; 80305; 82010; 82962; 83735; 83880; 84100; 84484; 85025; 93005; 94640; 99285; J1815; J1940; J2930; J3480; J3490; J7030; J7060; Q0163

== ENCOUNTER 2021-10-20 12:41 | Emergency (ER) | payer MEDICAID, OTHER ==
[~2021-10-20] VITALS: Ht 190.5 cm; Wt 148.0 kg
[~2021-10-20 12:41] MED LIST changes: -ALBU6.7H9 ORI; -AMLO10TA80 MT; -ATOR20TA65 MT; -DEXTL PO; -FAMO20TA8 MT; +GLIP10TA10 MT; -IBUP-2029 MT; -INSU100I28 SQ; -IPRA3AMP9 HHN; -IPRA3AMP9 NEB; -METF500T PO; -OMEP20CA14 PO; -TOPUD MT
[2021-10-20 14:47] LABS: BASOPHILS % 0.3 % (0.0-2.0); EOSINOPHILS % 0.3 % (0.0-5.0); HEMATOCRIT. 41.9 % (36.0-48.0); HEMOGLOBIN. 13.9 g/dL (12.0-16.0); LYMPHOCYTES % 15.6 % (20.0-50.0); MEAN CORPUSCULAR HEMOGLOBIN 30.9 pg (28.0-32.0); MEAN CORPUSCULAR VOLUME 92.7 fL (81.0-99.0); MEAN PLATELET VOLUME 9.5 fl (7.4-10.4); MONOCYTES % 10.3 % (2.0-8.0); NEUTROPHILS % 73.5 % (40.0-76.0); PLATELET 229 x1000/uL (130-400); RED BLOOD CELL COUNT 4.52 mill/uL (4.2-5.4); RED CELL DISTRIBUTION WIDTH 14.7 % (11.6-14.6)
[2021-10-20 14:58] LABS: CHLORIDE 97 mEq/L (98-107)
[2021-10-20] MEDS ORDERED: MORPHINE SULFATE 10 MG/ML CPJ IM ONE (18:30)
[2021-10-20] MEDS ORDERED: ONDANSETRON 4MG ODT PO ONE (18:30)
[2021-10-20] MEDS ORDERED: INSULIN REGULAR (HUMULIN R) 300UNITS/3ML VIAL IV ONE (19:00)
[2021-10-20] MEDS ORDERED: NYST15CR2 TP (21:32)
[2021-10-20] MEDS ORDERED: TRAM50TA3 MT (21:32)
[2021-10-20 21:55] VITALS: BP 149/80
== END 2021-10-20 22:00 | disposition home or self-care (01) ==
LOC: ER 12:41
DX: E11.65 Type 2 diabetes mellitus with hyperglycemia (principal); R21 Rash and other nonspecific skin eruption; R07.9 Chest pain, unspecified; R60.9 Edema, unspecified; I11.0 Hypertensive heart disease with heart failure; I50.9 Heart failure, unspecified; J45.909 Unspecified asthma, uncomplicated; Z79.4 Long term (current) use of insulin; Z88.0 Allergy status to penicillin; Z88.6 Allergy status to analgesic agent
CPT/HCPCS: 36415; 71045; 80053; 82962; 83880; 84484; 85025; 93005; 93970; 96372; 96374; 99285; J1815; J2270; Q0162

== ENCOUNTER 2022-01-01 12:58 | Emergency (ER) | payer MEDICAID, OTHER ==
[~2022-01-01] VITALS: Ht 191.8 cm; Wt 148.0 kg
[~2022-01-01 12:58] MED LIST changes: +NYST15CR2 TP; +POTA-204 PO; -POTA20TA82 PO; +TRAM50TA3 MT
[2022-01-01 13:37] LABS: BASOPHILS % 0.6 % (0.0-2.0); EOSINOPHILS % 0.6 % (0.0-5.0); HEMATOCRIT. 44.6 % (36.0-48.0); HEMOGLOBIN. 15.2 g/dL (12.0-16.0); LYMPHOCYTES % 26.4 % (20.0-50.0); MEAN CORPUSCULAR HEMOGLOBIN 31.6 pg (28.0-32.0); MEAN CORPUSCULAR VOLUME 92.5 fL (81.0-99.0); MEAN PLATELET VOLUME 10.2 fl (7.4-10.4); MONOCYTES % 8.2 % (2.0-8.0); NEUTROPHILS % 64.2 % (40.0-76.0); PLATELET 267 x1000/uL (130-400); RED BLOOD CELL COUNT 4.82 mill/uL (4.2-5.4); RED CELL DISTRIBUTION WIDTH 13.9 % (11.6-14.6)
[2022-01-01 13:44] LABS: CHLORIDE 93 mEq/L (98-107)
[2022-01-01 13:46] LABS: PROTHROMBIN TIME 10.3 sec (9.6-11.0)
[2022-01-01 13:55] LABS: ETHANOL BLOOD < 10 mg/dL
[2022-01-01] MEDS ORDERED: INSULIN REGULAR (HUMULIN R) 300UNITS/3ML VIAL SUBCUT ONE (14:45)
[2022-01-01] MEDS ORDERED: ALBUTEROL (0.083%) 2.5MG/3ML NEB HHN ONE (15:30)
[2022-01-01 17:30] VITALS: BP 143/82
== END 2022-01-01 17:32 | disposition home or self-care (01) ==
LOC: ER 12:58
DX: R07.9 Chest pain, unspecified (principal); I11.0 Hypertensive heart disease with heart failure; I50.9 Heart failure, unspecified; J44.9 Chronic obstructive pulmonary disease, unspecified; E11.65 Type 2 diabetes mellitus with hyperglycemia; J45.909 Unspecified asthma, uncomplicated; Z79.4 Long term (current) use of insulin; Z88.0 Allergy status to penicillin; Z88.6 Allergy status to analgesic agent
CPT/HCPCS: 36415; 71045; 80053; 80320; 82962; 83690; 83880; 84484; 85025; 85610; 93005; 94640; 96372; 99291; J1815; Z7610; G0480

== ENCOUNTER 2022-02-15 12:42 | Emergency (ER) | payer MEDICAID, OTHER ==
[~2022-02-15] VITALS: Ht 190.5 cm; Wt 135.0 kg
[2022-02-15] MEDS ORDERED: FUROSEMIDE 40MG/4ML VIAL IVP ONE (15:00)
[2022-02-15 15:54] LABS: BASOPHILS % 0.5 % (0.0-2.0); EOSINOPHILS % 0.4 % (0.0-5.0); HEMATOCRIT. 42.7 % (36.0-48.0); HEMOGLOBIN. 14.7 g/dL (12.0-16.0); LYMPHOCYTES % 17.9 % (20.0-50.0); MEAN CORPUSCULAR VOLUME 90.2 fL (81.0-99.0); MEAN PLATELET VOLUME 9.6 fl (7.4-10.4); MONOCYTES % 11.2 % (2.0-8.0); PLATELET 232 x1000/uL (130-400); RED BLOOD CELL COUNT 4.74 mill/uL (4.2-5.4); RED CELL DISTRIBUTION WIDTH 13.8 % (11.6-14.6)
[2022-02-15 16:02] LABS: CHLORIDE 93 mEq/L (98-107)
[2022-02-15 16:12] LABS: ETHANOL BLOOD < 10 mg/dL
[2022-02-15] MEDS ORDERED: INSULIN REGULAR (HUMULIN R) 300UNITS/3ML VIAL SUBCUT ONE (17:00)
[2022-02-15 18:00] VITALS: BP 121/90
[2022-02-15] MEDS ORDERED: FURO-151 MT (18:07)
== END 2022-02-15 20:55 | disposition home or self-care (01) ==
LOC: ER 12:42
DX: E11.65 Type 2 diabetes mellitus with hyperglycemia (principal); I11.0 Hypertensive heart disease with heart failure; I50.9 Heart failure, unspecified; J45.909 Unspecified asthma, uncomplicated; Z88.0 Allergy status to penicillin; Z88.6 Allergy status to analgesic agent; Z79.899 Other long term (current) drug therapy; Z98.890 Other specified postprocedural states
CPT/HCPCS: 36415; 71045; 80053; 80320; 82962; 83880; 84484; 85025; 93005; 96374; 99285; J1940; G0480

== ENCOUNTER 2022-03-12 12:51 | Emergency (ER) | payer MEDICAID ==
[~2022-03-12] VITALS: Ht 190.5 cm; Wt 117.0 kg
[~2022-03-12 12:51] MED LIST changes: +FURO-151 MT
[2022-03-12] MEDS ORDERED: KETOROLAC 30MG/ML VIAL IV STA (18:20)
[2022-03-12 19:24] LABS: BASOPHILS % 0.5 % (0.0-2.0); EOSINOPHILS % 0.7 % (0.0-5.0); HEMATOCRIT. 41.8 % (36.0-48.0); HEMOGLOBIN. 14.1 g/dL (12.0-16.0); LYMPHOCYTES % 30.8 % (20.0-50.0); MEAN CORPUSCULAR HEMOGLOBIN 30.8 pg (28.0-32.0); MEAN CORPUSCULAR VOLUME 91.3 fL (81.0-99.0); MEAN PLATELET VOLUME 9.4 fl (7.4-10.4); MONOCYTES % 11.4 % (2.0-8.0); NEUTROPHILS % 56.6 % (40.0-76.0); PLATELET 338 x1000/uL (130-400); RED BLOOD CELL COUNT 4.58 mill/uL (4.2-5.4); RED CELL DISTRIBUTION WIDTH 13.9 % (11.6-14.6)
[2022-03-12] MEDS ORDERED: TETRACAINE 0.5% OPHTH DROPS 4ML LEFTEYE ONE (19:30)
[2022-03-12] MEDS ORDERED: FLUORESCEIN SODIUM 1MG/STRIP LEFTEYE ONE (19:30)
[2022-03-12 19:34] LABS: CHLORIDE 106 mEq/L (98-107)
[2022-03-12 19:59] LABS: PROTHROMBIN TIME 10.6 sec (9.6-11.0)
[2022-03-12] MEDS ORDERED: SULFAMETHOXAZOLE/TRIMETHOPRIM 800/160MG TABLET PO ONE (23:15)
[2022-03-12] MEDS ORDERED: SULF1TAB48 PO (23:28)
[2022-03-12] MEDS ORDERED: CEFP200T13 PO (23:30)
[2022-03-12 23:40] VITALS: BP 134/87
== END 2022-03-12 23:40 | disposition home or self-care (01) ==
LOC: ER 13:32
DX: L03.213 Periorbital cellulitis (principal); J45.909 Unspecified asthma, uncomplicated; I11.0 Hypertensive heart disease with heart failure; I50.9 Heart failure, unspecified; J44.9 Chronic obstructive pulmonary disease, unspecified; E11.9 Type 2 diabetes mellitus without complications; Z79.4 Long term (current) use of insulin; Z88.0 Allergy status to penicillin; Z88.6 Allergy status to analgesic agent
CPT/HCPCS: 36415; 70480; 80053; 83605; 85025; 85610; 85651; 96374; 99284; J1885

== ENCOUNTER 2022-07-25 13:14 | Emergency (ER) | payer MEDICAID, OTHER ==
[~2022-07-25] VITALS: Ht 188 cm; Wt 105.0 kg
[~2022-07-25 13:14] MED LIST changes: +CEFP200T13 PO; -NYST15CR2 TP; +NYST15CR38 TP; +SULF1TAB48 PO
[2022-07-25 13:17] VITALS: BP 134/89
[2022-07-25] MEDS ORDERED: IPRATROPIUM BROMIDE (0.02%) 0.5MG/2.5ML NEB HHN STA (16:10)
[2022-07-25] MEDS ORDERED: ALBUTEROL (0.083%) 2.5MG/3ML NEB HHN STA (16:10)
[2022-07-25] MEDS ORDERED: BACITRACIN ZINC OINT UDPKT TOP ONE (16:15)
[2022-07-25] MEDS ORDERED: DEXAMETHASONE 10 MG/ML VIAL PO ONE (16:15)
[2022-07-25] MEDS ORDERED: LIDOCAINE HCL/PF 1% 10 MG/ML 5ML VIAL INFIL ONE (16:15)
[2022-07-25] MEDS ORDERED: FURO-152 MT (17:58)
[2022-07-25] MEDS ORDERED: INSLIS SUBCUT (18:00)
[2022-07-25] MEDS ORDERED: FLUT1DIS3 INH (18:00)
[2022-07-25] MEDS ORDERED: ALBU2.5V13 NEB (18:00)
[2022-07-25] MEDS ORDERED: LANTUSUD SUBCUT (18:00)
[2022-07-25] MEDS ORDERED: AMLO10TA80 PO (18:00)
[2022-07-25] MEDS ORDERED: SULF1TAB48 MT (18:03)
== END 2022-07-25 18:25 | disposition home or self-care (01) ==
LOC: ER 13:14
DX: L02.215 Cutaneous abscess of perineum (principal); J44.1 Chronic obstructive pulmonary disease with (acute) exacerbation; E11.9 Type 2 diabetes mellitus without complications; I50.9 Heart failure, unspecified; Z79.899 Other long term (current) drug therapy; Z88.0 Allergy status to penicillin; Z88.6 Allergy status to analgesic agent
CPT/HCPCS: 10060; 94640; 99283; J1100; J3490; Z7610

== ENCOUNTER 2022-08-22 12:38 | Emergency (ER) | payer MEDICAID ==
[~2022-08-22] VITALS: Ht 190.5 cm; Wt 115.0 kg
[~2022-08-22 12:38] MED LIST changes: +SULF1TAB48 MT
[2022-08-22 12:39] VITALS: BP 142/97
[2022-08-22] MEDS ORDERED: IPRATROPIUM BROMIDE (0.02%) 0.5MG/2.5ML NEB HHN STA (21:55)
[2022-08-22] MEDS ORDERED: ALBUTEROL (0.083%) 2.5MG/3ML NEB HHN STA (21:55)
[2022-08-22 23:34] LABS: CHLORIDE 97 mEq/L (98-107)
[2022-08-22 23:36] LABS: BASOPHILS % 0.4 % (0.0-2.0); EOSINOPHILS % 0.6 % (0.0-5.0); HEMATOCRIT. 44.7 % (36.0-48.0); HEMOGLOBIN. 15.3 g/dL (12.0-16.0); LYMPHOCYTES % 27.1 % (20.0-50.0); MEAN CORPUSCULAR HEMOGLOBIN 30.6 pg (28.0-32.0); MEAN CORPUSCULAR VOLUME 89.5 fL (81.0-99.0); NEUTROPHILS % 62.9 % (40.0-76.0); PLATELET 316 x1000/uL (130-400); RED CELL DISTRIBUTION WIDTH 13.9 % (11.6-14.6)
[2022-08-22 23:41] LABS: CLARITY URINE CLOUDY (CLEAR); COLOR URINE YELLOW (YELLOW); KETONES URINE NEGATIVE (NEGATIVE); LEUKOCYTE ESTERASE URINE 1+ (NEGATIVE); NITRITE URINE NEGATIVE (NEGATIVE); OCCULT BLOOD URINE NEGATIVE (NEGATIVE); PH URINE 5.5 (4.5-8.0); PROTEIN URINE NEGATIVE (NEGATIVE); SPECIFIC GRAVITY URINE 1.037 (1.005-1.030); UROBILINOGEN URINE 0.2 E.U./dL (0.2-1.0)
[2022-08-23] MEDS ORDERED: ALBUTEROL (0.083%) 2.5MG/3ML NEB HHN NR (00:15)
[2022-08-23] MEDS ORDERED: IPRATROPIUM BROMIDE (0.02%) 0.5MG/2.5ML NEB HHN NR (00:15)
== END 2022-08-23 01:08 | disposition left against medical advice (07) ==
LOC: ER 12:38
DX: E11.65 Type 2 diabetes mellitus with hyperglycemia (principal); J44.9 Chronic obstructive pulmonary disease, unspecified; I11.0 Hypertensive heart disease with heart failure; I50.9 Heart failure, unspecified; Z79.899 Other long term (current) drug therapy; Z88.0 Allergy status to penicillin
CPT/HCPCS: 36415; 71045; 80053; 81003; 83880; 84484; 85025; 93005; 94640; 99285; Z7610

== ENCOUNTER 2022-11-21 15:24 | Emergency (ER) | payer MEDICAID, OTHER ==
[~2022-11-21] VITALS: Ht 185.4 cm; Wt 130.0 kg
[~2022-11-21 15:24] MED LIST changes: +LOSA-413 PO; -LOSA100T3 PO; +LOSA100T4 PO; -LOSA50TA3 PO
[2022-11-21 16:28] VITALS: BP 115/79
[2022-11-21] MEDS ORDERED: IPRATROPIUM/ALBUTEROL 0.5-3(2.5)MG/3ML NEB HHN ONE (20:30)
[2022-11-21 22:38] LABS: CLARITY URINE CLEAR (CLEAR); COLOR URINE YELLOW (YELLOW); KETONES URINE NEGATIVE (NEGATIVE); LEUKOCYTE ESTERASE URINE 1+ (NEGATIVE); NITRITE URINE NEGATIVE (NEGATIVE); OCCULT BLOOD URINE NEGATIVE (NEGATIVE); PH URINE 5.5 (4.5-8.0); PROTEIN URINE NEGATIVE (NEGATIVE); SPECIFIC GRAVITY URINE 1.035 (1.005-1.030); UROBILINOGEN URINE 0.2 E.U./dL (0.2-1.0)
[2022-11-21] MEDS ORDERED: MICO45CR16 VG (23:19)
[2022-11-21] MEDS ORDERED: NITR100C MT (23:19)
[2022-11-21] MEDS ORDERED: ALBU6.7H3 INH (23:19)
== END 2022-11-21 23:32 | disposition home or self-care (01) ==
LOC: ER 15:24
DX: N39.0 Urinary tract infection, site not specified (principal); B37.31 Acute candidiasis of vulva and vagina; J45.909 Unspecified asthma, uncomplicated; I11.0 Hypertensive heart disease with heart failure; I50.9 Heart failure, unspecified; E11.9 Type 2 diabetes mellitus without complications; Z79.84 Long term (current) use of oral hypoglycemic drugs; Z79.899 Other long term (current) drug therapy; Z79.4 Long term (current) use of insulin; Z88.0 Allergy status to penicillin; Z88.6 Allergy status to analgesic agent
CPT/HCPCS: 81003; 94640; 99283; Z7610

== ENCOUNTER 2023-02-27 14:51 | Emergency (ER) | payer MEDICAID, OTHER ==
[~2023-02-27] VITALS: Ht 190.5 cm; Wt 107.0 kg
[~2023-02-27 14:51] MED LIST changes: +ALBU6.7H3 INH; +MICO45CR16 VG; +NITR100C MT
[2023-02-27 15:27] VITALS: BP 131/87; TEMP 98.9; O2SAT 96
[2023-02-27] MEDS ORDERED: IPRATROPIUM/ALBUTEROL 0.5-3(2.5)MG/3ML NEB HHN ONE (17:15)
[2023-02-27] MEDS ORDERED: LIDOCAINE HCL/EPINEPHRINE 1%-EPI 1:100,000 20 ML VIAL INFIL ONE (17:15)
[2023-02-27 18:40] VITALS: PULSE 90; RESP 22
== END 2023-02-27 19:05 | disposition home or self-care (01) ==
LOC: ER 14:51
DX: N76.4 Abscess of vulva (principal); J45.909 Unspecified asthma, uncomplicated; J44.9 Chronic obstructive pulmonary disease, unspecified; I11.0 Hypertensive heart disease with heart failure; I50.9 Heart failure, unspecified; Z88.0 Allergy status to penicillin; Z88.6 Allergy status to analgesic agent; Z79.899 Other long term (current) drug therapy
CPT/HCPCS: 94640; 56405; 99284; J3490; Z7610 ×3

== ENCOUNTER 2023-03-13 14:26 | Emergency (ER) | payer MEDICAID ==
[~2023-03-13] VITALS: Ht 182.9 cm; Wt 104.0 kg
[2023-03-13 14:44] VITALS: BP 148/109; PULSE 93; RESP 20; TEMP 98.4; O2SAT 97
[2023-03-13 15:42] LABS: BASOPHILS % 0.7 % (0.0-2.0); EOSINOPHILS % 0.3 % (0.0-5.0); HEMOGLOBIN. 14.7 g/dL (12.0-16.0); LYMPHOCYTES % 21.4 % (20.0-50.0); MEAN CORPUSCULAR HEMOGLOBIN 30.3 pg (28.0-32.0); MEAN CORPUSCULAR HGB CONC 34.2 g/dL (31.0-37.0); MEAN CORPUSCULAR VOLUME 88.7 fL (81.0-99.0); MEAN PLATELET VOLUME 9.2 fl (7.4-10.4); MONOCYTES % 7.4 % (2.0-8.0); NEUTROPHILS % 70.2 % (40.0-76.0); PLATELET 314 x1000/uL (130-400); RED BLOOD CELL COUNT 4.84 mill/uL (4.2-5.4); RED CELL DISTRIBUTION WIDTH 13.4 % (11.6-14.6); WHITE BLOOD COUNT 8.7 x1000/uL (4.5-11.0)
[2023-03-13 15:56] LABS: CHLORIDE 91 mEq/L (98-107); INDEX HEMOLYSI 1 (1-3); INDEX ICTERIC 1 (1-4); INDEX LIPEMIC 1 (1-3); POTASSIUM 4.4 mEq/L (3.5-5.1); SODIUM 124 mEq/L (136-145)
[2023-03-13 16:04] LABS: ALANINE AMINOTRANSFERASE 14 IU/L (13-61); ALBUMIN 3.5 g/dL (3.4-5.0); ASPARTATE AMINOTRANSFERASE 10 IU/L (15-37); BILIRUBIN TOTAL 0.4 mg/dL (0.1-1.0); CALCIUM 9.2 mg/dL (8.5-10.1); CARBON DIOXIDE 22 mEq/L (21-32); CREATININE 0.5 mg/dL (0.6-1.3); PROTEIN TOTAL 8.5 g/dL (6.0-8.3); UREA NITROGEN BLOOD 11 mg/dL (7-21)
[2023-03-13 16:20] LABS: GLUCOSE 658 mg/dL (70-105)
[2023-03-13] MEDS ORDERED: LANTUSUD SUBCUT (16:58)
[2023-03-13] MEDS ORDERED: INSLIS SUBCUT (16:58)
[2023-03-13] MEDS ORDERED: SYRI-218 SQ (16:58)
[2023-03-13] MEDS ORDERED: LANC-30 TP (16:58)
[2023-03-13] MEDS ORDERED: BLOO-1465 MT (16:58)
[2023-03-13] MEDS ORDERED: SULF1TAB48 MT (16:59)
== END 2023-03-13 17:26 | disposition home or self-care (01) ==
LOC: ER 14:26
DX: L02.211 Cutaneous abscess of abdominal wall (principal); R10.32 Left lower quadrant pain; I11.0 Hypertensive heart disease with heart failure; I50.9 Heart failure, unspecified; J44.9 Chronic obstructive pulmonary disease, unspecified; E11.9 Type 2 diabetes mellitus without complications; F17.200 Nicotine dependence, unspecified, uncomplicated; Z88.0 Allergy status to penicillin; Z88.6 Allergy status to analgesic agent; Z79.899 Other long term (current) drug therapy
CPT/HCPCS: 36415; 74176; 80053; 85025; 99284

== ENCOUNTER 2023-04-03 13:23 | Emergency (ER) | payer MEDICAID ==
[~2023-04-03] VITALS: Ht 182.9 cm; Wt 113.0 kg
[~2023-04-03 13:23] MED LIST changes: +BLOO-1465 MT; +LANC-30 TP; +LOSA-415 PO; -LOSA100T4 PO; +SYRI-218 SQ
[2023-04-03 13:28] VITALS: BP 120/87; TEMP 98; O2SAT 97
[2023-04-03] MEDS ORDERED: PREDNISONE 20MG TABLET PO ONE (15:15)
[2023-04-03] MEDS ORDERED: ALBUTEROL (0.083%) 2.5MG/3ML NEB HHN ONE (15:15)
[2023-04-03] MEDS ORDERED: P50 MT (15:16)
[2023-04-03] MEDS ORDERED: SULF1TAB48 MT (16:12)
[2023-04-03] MEDS ORDERED: ALBU6.7H15 INH (16:14)
[2023-04-03 16:15] VITALS: PULSE 94; RESP 20
[2023-04-03] MEDS ORDERED: FLUCONAZOLE 100MG TABLET PO ONE (16:15)
[2023-04-03] MEDS ORDERED: FLUCONAZOLE 150MG TABLET PO ONE (16:45)
== END 2023-04-03 17:05 | disposition home or self-care (01) ==
LOC: ER 13:23
DX: N76.0 Acute vaginitis (principal); J44.1 Chronic obstructive pulmonary disease with (acute) exacerbation; I11.0 Hypertensive heart disease with heart failure; I50.9 Heart failure, unspecified; E11.9 Type 2 diabetes mellitus without complications; J45.909 Unspecified asthma, uncomplicated; Z79.899 Other long term (current) drug therapy
CPT/HCPCS: 94640; 99283; J7512; Z7610 ×2

== ENCOUNTER 2023-10-01 14:53 | Inpatient (IN) | payer MEDICAID, OTHER ==
[~2023-10-01] VITALS: Ht 190.5 cm; Wt 106.6 kg
[~2023-10-01 14:53] MED LIST changes: -ALBU18HF2 IH; +ALBU18HF2 PO; -ALBU2.5V13 NEB; -ALBU6.7H3 INH; -AMLO5TAB88 MT; -CEFP200T13 PO; -FLUT1DIS3 INH; -FLUT9.9S BOTHNSTRLS; -FURO-151 MT; -FURO-152 MT; -FURO80TA87 MT; +GEMF600T90 PO; +GLIP-12 PO; -GLIP10TA10 MT; -HYDR-4346 MT; -LOSA-413 PO; -METF-414 PO; -MICO45CR16 VG; -NITR100C MT; -NYST15CR38 TP; -P20 MT; -SULF1TAB48 MT; -SULF1TAB48 PO
[2023-10-01 15:27] VITALS: PULSE 103; RESP 24; O2SAT 91
[2023-10-01] MEDS: IPRATROPIUM BROMIDE (0.02%) 0.5MG/2.5ML NEB HHN STA (15:27)
[2023-10-01] MEDS: ALBUTEROL (0.083%) 2.5MG/3ML NEB HHN STA (15:28)
[2023-10-01] MEDS: METHYLPREDNISOLONE SOD SUCC 125MG/2ML (ACT-O-VIAL) IV STA (15:56)
[2023-10-01 16:58] LABS: BASOPHILS % 0.3 % (0.0-2.0); EOSINOPHILS % 0.2 % (0.0-5.0); HEMATOCRIT. 43.8 % (36.0-48.0); HEMOGLOBIN. 14.8 g/dL (12.0-16.0); LYMPHOCYTES % 35.7 % (20.0-50.0); MEAN CORPUSCULAR HEMOGLOBIN 29.7 pg (28.0-32.0); MEAN CORPUSCULAR HGB CONC 33.8 g/dL (31.0-37.0); MEAN PLATELET VOLUME 9.6 fl (7.4-10.4); MONOCYTES % 9.1 % (2.0-8.0); NEUTROPHILS % 54.7 % (40.0-76.0); PLATELET 285 x1000/uL (130-400); RED BLOOD CELL COUNT 4.98 mill/uL (4.2-5.4); RED CELL DISTRIBUTION WIDTH 14.1 % (11.6-14.6); WHITE BLOOD COUNT 8.4 x1000/uL (4.5-11.0)
[2023-10-01] MEDS ORDERED: ALBUTEROL (0.083%) 2.5MG/3ML NEB HHN ONE (17:15)
[2023-10-01 17:34] LABS: ALANINE AMINOTRANSFERASE < 7 IU/L (10-49); ALBUMIN 4.2 g/dL (3.2-4.8); ASPARTATE AMINOTRANSFERASE 13 IU/L (<34); BETA HYDROXYBUTYRATE 1.3 mMol/L (0.0-0.3); BILIRUBIN TOTAL 0.6 mg/dL (0.1-1.0); CALCIUM 8.6 mg/dL (8.7-10.4); CARBON DIOXIDE 21 mEq/L (21-32); CHLORIDE 95 mEq/L (98-107); CREATININE 0.9 mg/dL (0.6-1.0); POTASSIUM 3.4 mEq/L (3.5-5.1); PROTEIN TOTAL 7.6 g/dL (6.0-8.3); SODIUM 128 mEq/L (136-145); TROPONIN I HIGH SENSITIVITY 9 ng/L (3.0-34); UREA NITROGEN BLOOD 7 mg/dL (9-23)
[2023-10-01 17:39] LABS: GLUCOSE 554 mg/dL (70-105)
[2023-10-01] MEDS ORDERED: SODIUM CHLORIDE 0.9% 1,000 ML IV SCH ×2 (17:45)
[2023-10-01] MEDS: INSULIN LISPRO 100 UNITS/ML SUBCUT NR (18:00)
[2023-10-01 18:52] LABS: TROPONIN I HIGH SENSITIVITY 10 ng/L (3.0-34)
[2023-10-02] VITALS (7 sets, daily range): BP systolic 122–154; BP diastolic 46–92; PULSE 81–88; RESP 16–20; TEMP 96.8–97.7; O2SAT 92
[2023-10-02] MEDS: ALBUTEROL (0.083%) 2.5MG/3ML NEB HHN NR (07:36)
[2023-10-02 09:07] LABS: BASOPHILS % 0.3 % (0.0-2.0); HEMATOCRIT. 40.7 % (36.0-48.0); HEMOGLOBIN. 14.1 g/dL (12.0-16.0); LYMPHOCYTES % 25.5 % (20.0-50.0); MEAN CORPUSCULAR HEMOGLOBIN 30.4 pg (28.0-32.0); MEAN CORPUSCULAR HGB CONC 34.6 g/dL (31.0-37.0); MEAN CORPUSCULAR VOLUME 87.8 fL (81.0-99.0); MEAN PLATELET VOLUME 9.3 fl (7.4-10.4); MONOCYTES % 9.2 % (2.0-8.0); PLATELET 301 x1000/uL (130-400); RED BLOOD CELL COUNT 4.64 mill/uL (4.2-5.4); RED CELL DISTRIBUTION WIDTH 14.1 % (11.6-14.6)
[2023-10-02 09:21] LABS: CALCIUM 9.2 mg/dL (8.7-10.4); CARBON DIOXIDE 21 mEq/L (21-32); CHLORIDE 96 mEq/L (98-107); CREATININE 0.8 mg/dL (0.6-1.0); GLUCOSE 360 mg/dL (70-105); POTASSIUM 3.9 mEq/L (3.5-5.1); SODIUM 129 mEq/L (136-145); UREA NITROGEN BLOOD 12 mg/dL (9-23)
[2023-10-02] MEDS ORDERED: DEXTROSE 50% WATER 50ML SYRINGE IV PRN (10:15)
[2023-10-02] MEDS ORDERED: ONDANSETRON HCL 4MG/2ML INJ IV PRN (10:15)
[2023-10-02] MEDS: AMLODIPINE 10MG TABLET PO SCH (10:15)
[2023-10-02] MEDS: BLOOD SUGAR DIAGNOSTIC STRIP TEST SCH (11:40)
[2023-10-02] MEDS ORDERED: PNEUMOCOCCAL 23-VAL P-SAC VAC 0.5 ML IM ONE (11:45)
[2023-10-02] MEDS: INSULIN GLARGINE 100 UNITS/ML SUBCUT NR ×2 (11:48→14:27)
[2023-10-02] MEDS: IPRATROPIUM/ALBUTEROL 0.5-3(2.5)MG/3ML NEB HHN SCH (13:48)
[2023-10-02] MEDS: INSULIN LISPRO 100 UNITS/ML SUBCUT SCH (13:48)
[2023-10-02] MEDS: GABAPENTIN 300MG CAPSULE PO SCH (17:54)
[2023-10-02] MEDS: FUROSEMIDE 40MG/4ML VIAL IVP SCH (18:54)
[2023-10-02] MEDS: KETOROLAC 30MG/ML VIAL IV PRN (18:55)
[2023-10-02] MEDS: INSULIN GLARGINE 100 UNITS/ML SUBCUT SCH (21:34)
[2023-10-03] VITALS (7 sets, daily range): BP systolic 101–150; BP diastolic 63–96; PULSE 80–100; RESP 15–20; TEMP 96.8–98.1; O2SAT 93–97
[2023-10-03] MEDS ORDERED: LANTUSUD SUBCUT (08:33)
[2023-10-03] MEDS ORDERED: INSLIS SUBCUT (08:33)
[2023-10-03] MEDS ORDERED: AMLO10TA80 PO (08:33)
[2023-10-03] MEDS ORDERED: FLUT1DIS3 INH (08:34)
[2023-10-03] MEDS ORDERED: ALBU18HF2 IH (08:34)
[2023-10-03] MEDS ORDERED: GABA-532 MT (08:34)
[2023-10-03] MEDS: INSULIN GLARGINE 100 UNITS/ML SUBCUT SCH (11:28)
[2023-10-03] MEDS: INSULIN LISPRO 100 UNITS/ML SUBCUT SCH (11:54)
== END 2023-10-03 14:45 | disposition home or self-care (01) | DRG 140 ==
LOC: ER 15:04 → 7EST 18:09 → EDBEDREQTM 18:22 → EDBEDREQ 18:22
PROVIDERS: ADMIT Internal Medicine; ATTEND Internal Medicine
DX: J44.1 Chronic obstructive pulmonary disease with (acute) exacerbation (principal); I50.33 Acute on chronic diastolic (congestive) heart failure; E87.1 Hypo-osmolality and hyponatremia; J45.901 Unspecified asthma with (acute) exacerbation; I11.0 Hypertensive heart disease with heart failure; E11.65 Type 2 diabetes mellitus with hyperglycemia; E87.6 Hypokalemia; R06.03 Acute respiratory distress; Z88.0 Allergy status to penicillin
CPT/HCPCS: 36415; 71045; 80048; 80053; 82010; 82962; 83880; 84484; 85025; 93005; 94640; 99285; J1815; J1885; J1940; J2930

== ENCOUNTER 2023-12-04 12:12 | Inpatient (IN) | payer MEDICAID ==
[~2023-12-04] VITALS: Ht 190.5 cm; Wt 122.0 kg
[~2023-12-04 12:12] MED LIST changes: +ALBU18HF2 IH; -ALBU18HF2 PO; +FLUT1DIS3 INH; +GABA-532 MT; -GLIP-12 PO; -HYDR-4001 PO; -HYDR100T26 PO; -LOSA-415 PO; -TRAM50TA3 MT
[2023-12-04 13:09] VITALS: PULSE 92; RESP 18; O2SAT 96
[2023-12-04 13:09] LABS: CHLORIDE 103 mEq/L (98-107); SODIUM 135 mEq/L (136-145)
[2023-12-04] MEDS: IPRATROPIUM/ALBUTEROL 0.5-3(2.5)MG/3ML NEB HHN ONE ×2 (13:09→14:41)
[2023-12-04 13:10] LABS: CALCIUM 8.3 mg/dL (8.7-10.4); CARBON DIOXIDE 21 mEq/L (21-32)
[2023-12-04 13:15] LABS: BASOPHILS % 0.4 % (0.0-2.0); CREATININE 0.8 mg/dL (0.6-1.0); EOSINOPHILS % 0.8 % (0.0-5.0); GLUCOSE 327 mg/dL (70-105); HEMATOCRIT. 36.9 % (36.0-48.0); HEMOGLOBIN. 12.9 g/dL (12.0-16.0); LYMPHOCYTES % 27.2 % (20.0-50.0); MEAN CORPUSCULAR HEMOGLOBIN 31.1 pg (28.0-32.0); MEAN CORPUSCULAR HGB CONC 34.9 g/dL (31.0-37.0); MEAN CORPUSCULAR VOLUME 89.1 fL (81.0-99.0); MEAN PLATELET VOLUME 8.7 fl (7.4-10.4); NEUTROPHILS % 64.6 % (40.0-76.0); PLATELET 303 x1000/uL (130-400); RED BLOOD CELL COUNT 4.14 mill/uL (4.2-5.4); RED CELL DISTRIBUTION WIDTH 14.7 % (11.6-14.6); UREA NITROGEN BLOOD 9 mg/dL (9-23); WHITE BLOOD COUNT 8.5 x1000/uL (4.5-11.0)
[2023-12-04] MEDS: IPRATROPIUM/ALBUTEROL 0.5-3(2.5)MG/3ML NEB HHN NR (13:15)
[2023-12-04 13:17] LABS: BG BASE EXCESS -2.1 mmol/L (-2.0-2.0); BG DEOXYHEMOGLOBIN 3.3 % (0.0-5.0); BG FRACTION INSPIRED OXYGEN 21; BG HCO3 ACT 21.7 mmol/L (22.0-26.0); BG METHEMOGLOBIN 0.1 % (0.0-1.5); BG OXYGEN SATURATION 96.7 % (92.0-98.5); BG OXYHEMOGLOBIN 95.6 % (94.0-97.0); BG PCO2 34.2 mmHg (35.0-45.0); BG PO2 88.8 mmHg (75.0-100.0); BG SAMPLE SITE RIGHT BRACHIAL; BG TOTAL HEMOGLOBIN 13.5 g/dL (12.0-18.0); BG VENT MODE ROOM AIR
[2023-12-04 13:17] LABS: TROPONIN I HIGH SENSITIVITY 7 ng/L (3.0-34)
[2023-12-04] MEDS: INSULIN REGULAR (HUMULIN R) 300UNITS/3ML VIAL SUBCUT ONE (14:15)
[2023-12-04 14:42] VITALS: PULSE 88; RESP 22; O2SAT 95
[2023-12-04] MEDS: POTASSIUM CHLORIDE 20MEQ/PACKET PO NR (15:12)
[2023-12-04] MEDS ORDERED: IPRATROPIUM/ALBUTEROL 0.5-3(2.5)MG/3ML NEB HHN PRN (16:30)
[2023-12-04] MEDS: NIFEDIPINE XL 30MG TAB PO SCH (16:36)
[2023-12-04] MEDS: KETOROLAC 30MG/ML VIAL IV PRN (17:36)
[2023-12-04] MEDS: INSULIN GLARGINE 100 UNITS/ML SUBCUT NR (18:45)
[2023-12-04] MEDS ORDERED: DEXTROSE 50% WATER 50ML SYRINGE IV PRN (18:45)
[2023-12-04 19:35] VITALS: PULSE 85; RESP 20; O2SAT 99
[2023-12-04] MEDS: IPRATROPIUM/ALBUTEROL 0.5-3(2.5)MG/3ML NEB HHN PRN (19:35)
[2023-12-04] MEDS: BLOOD SUGAR DIAGNOSTIC STRIP TEST SCH (21:51)
[2023-12-04] MEDS: INSULIN LISPRO 100 UNITS/ML SUBCUT SCH (21:54)
[2023-12-04 22:05] VITALS: BP 153/106; PULSE 83; RESP 18; TEMP 97.1
[2023-12-04 22:35] VITALS: BP 153/106; PULSE 83; RESP 18; TEMP 97.1
[2023-12-04 23:16] VITALS: PULSE 92; RESP 21; O2SAT 94
[2023-12-04] MEDS: IPRATROPIUM/ALBUTEROL 0.5-3(2.5)MG/3ML NEB HHN SCH (23:16)
[2023-12-04] MEDS: INSULIN GLARGINE 100 UNITS/ML SUBCUT SCH (23:22)
[2023-12-05] VITALS (9 sets, daily range): BP systolic 126–149; BP diastolic 71–94; PULSE 80–105; RESP 16–20; TEMP 97.5–98.4; O2SAT 96–98
[2023-12-05] MEDS: KETOROLAC 30MG/ML VIAL IV PRN (04:00)
[2023-12-05] MEDS: NIFEDIPINE XL 60MG TAB PO SCH (09:13)
[2023-12-05] MEDS: PREDNISONE 20MG TABLET PO NR (10:58)
[2023-12-05 11:54] LABS: HEPATITIS B SURFACE ANTIGEN NEGATIVE (Negative)
[2023-12-05 12:16] LABS: HEPATITIS C AB NON REACTIVE (Neg) (Negative)
[2023-12-05] MEDS: FUROSEMIDE 40MG/4ML VIAL IVP NR (21:33)
[2023-12-05] MEDS: INSULIN GLARGINE 100 UNITS/ML SUBCUT SCH (21:50)
[2023-12-06] VITALS (8 sets, daily range): BP systolic 130–136; BP diastolic 70–79; PULSE 80–98; RESP 16–20; TEMP 97.9–98.1; O2SAT 97–98
[2023-12-06 00:12] LABS: TROPONIN I HIGH SENSITIVITY 6 ng/L (3.0-34)
[2023-12-06] MEDS: FLUTICASONE/VILANTEROL 200-25 BLST.W.DEV ORI SCH (02:00)
[2023-12-06] MEDS ORDERED: FLUT1DIS3 INH (10:47)
[2023-12-06] MEDS ORDERED: INSU100I28 SQ (10:47)
[2023-12-06] MEDS ORDERED: NIFE-32 MT (10:47)
[2023-12-06] MEDS ORDERED: ALBU18HF2 IH (10:47)
== END 2023-12-06 16:17 | disposition home or self-care (01) | DRG 140 ==
LOC: ER 12:12 → EDBEDREQTM 15:25 → EDBEDREQ 15:25 → 7EST 22:09
PROVIDERS: ADMIT Internal Medicine; ATTEND Internal Medicine
DX: J44.1 Chronic obstructive pulmonary disease with (acute) exacerbation (principal); J96.01 Acute respiratory failure with hypoxia; I50.33 Acute on chronic diastolic (congestive) heart failure; Z68.33 Body mass index [BMI] 33.0-33.9, adult; J45.901 Unspecified asthma with (acute) exacerbation; I11.0 Hypertensive heart disease with heart failure; E87.6 Hypokalemia; F31.9 Bipolar disorder, unspecified; E66.9 Obesity, unspecified; E11.9 Type 2 diabetes mellitus without complications; Z88.0 Allergy status to penicillin
CPT/HCPCS: 36415; 36600; 71045; 80048; 82375; 82805; 82962; 83880; 84484; 85025; 86705; 87340; 93005; 94640; 99285; C1893; J1815; J1885; J1940; J7512

== ENCOUNTER 2023-12-23 18:39 | Emergency (ER) | payer MEDICAID ==
[~2023-12-23] VITALS: Ht 172.7 cm; Wt 100.0 kg
[~2023-12-23 18:39] MED LIST changes: -AMLO10TA80 PO; -INSLIS SUBCUT; +INSU100I28 SQ; -LANTUSUD SUBCUT; +NIFE-32 MT
[2023-12-23] MEDS: PREDNISONE 20MG TABLET PO ONE (19:38)
[2023-12-23 19:44] VITALS: PULSE 99; RESP 16; O2SAT 94
[2023-12-23] MEDS: IPRATROPIUM/ALBUTEROL 0.5-3(2.5)MG/3ML NEB HHN ONE (19:44)
[2023-12-23 19:47] LABS: BASOPHILS % 0.6 % (0.0-2.0); EOSINOPHILS % 0.6 % (0.0-5.0); HEMATOCRIT. 40.3 % (36.0-48.0); HEMOGLOBIN. 13.9 g/dL (12.0-16.0); LYMPHOCYTES % 30.1 % (20.0-50.0); MEAN CORPUSCULAR HEMOGLOBIN 30.4 pg (28.0-32.0); MEAN CORPUSCULAR HGB CONC 34.5 g/dL (31.0-37.0); MEAN CORPUSCULAR VOLUME 88.2 fL (81.0-99.0); MEAN PLATELET VOLUME 9.1 fl (7.4-10.4); MONOCYTES % 9.4 % (2.0-8.0); NEUTROPHILS % 59.3 % (40.0-76.0); PLATELET 356 x1000/uL (130-400); RED BLOOD CELL COUNT 4.57 mill/uL (4.2-5.4); RED CELL DISTRIBUTION WIDTH 14.2 % (11.6-14.6); WHITE BLOOD COUNT 10.6 x1000/uL (4.5-11.0)
[2023-12-23 19:54] LABS: CALCIUM 8.8 mg/dL (8.7-10.4)
[2023-12-23 19:58] LABS: CREATININE 1.2 mg/dL (0.6-1.0)
[2023-12-23 20:00] VITALS: TEMP 98
[2023-12-23] MEDS: INSULIN REGULAR (HUMULIN R) 1000UNITS/10ML VIAL IV NR (20:30)
[2023-12-23] MEDS ORDERED: INSULIN REGULAR (HUMULIN R) 1000UNITS/10ML VIAL IV STA (20:30)
[2023-12-23] MEDS ORDERED: INSULIN REGULAR (HUMULIN R) 1000UNITS/10ML VIAL IV NR (20:30)
[2023-12-23 22:00] VITALS: BP 137/84; PULSE 96
[2023-12-23] MEDS ORDERED: FLUT1DIS3 INH (23:24)
[2023-12-23] MEDS ORDERED: INSU100I28 SQ (23:24)
[2023-12-23] MEDS ORDERED: SYRI-218 SQ (23:24)
[2023-12-23] MEDS ORDERED: ALBU18HF2 IH (23:24)
[2023-12-23] MEDS ORDERED: LANC-30 TP (23:24)
[2023-12-24 00:23] VITALS: RESP 38
== END 2023-12-24 01:30 | disposition home or self-care (01) ==
LOC: ER 18:39
DX: R06.2 Wheezing (principal); I11.0 Hypertensive heart disease with heart failure; I50.9 Heart failure, unspecified; J44.9 Chronic obstructive pulmonary disease, unspecified; E11.9 Type 2 diabetes mellitus without complications; Z79.899 Other long term (current) drug therapy
CPT/HCPCS: 80048; 85025; 36415; 71045; 94640; 96374; 99285; J7512; J1815; Z7610 ×5

== ENCOUNTER 2024-03-12 13:48 | Emergency (ER) | payer MEDICAID ==
[~2024-03-12] VITALS: Ht 177.8 cm; Wt 100.0 kg
[~2024-03-12 13:48] MED LIST changes: +ALBU2.5V13 NEB; +ALBU6.7H15 INH; +AMLO10TA80 MT; +AMOX1TAB16 MT; +ASPI-1497 MT; +HYDR-4001 MT; +HYDR50TA40 MT; +IPRA3AMP9 NEB
[2024-03-12 18:33] VITALS: PULSE 74; RESP 20; O2SAT 97
[2024-03-12] MEDS: IPRATROPIUM/ALBUTEROL 0.5-3(2.5)MG/3ML NEB HHN ONE (18:33)
[2024-03-12] MEDS ORDERED: CLIN-194 MT (18:41)
[2024-03-12] MEDS: CLINDAMYCIN HCL 150MG CAPSULE PO SCH (18:51)
[2024-03-12] MEDS: DEXAMETHASONE 4MG TABLET PO ONE (18:52)
[2024-03-12 18:55] VITALS: BP 135/70; PULSE 78; RESP 20; TEMP 36.89184; O2SAT 97
== END 2024-03-12 18:55 | disposition home or self-care (01) ==
LOC: ER 13:48
DX: K11.20 Sialoadenitis, unspecified (principal); J44.9 Chronic obstructive pulmonary disease, unspecified; E11.9 Type 2 diabetes mellitus without complications; I10 Essential (primary) hypertension; Z88.0 Allergy status to penicillin; Z79.899 Other long term (current) drug therapy
CPT/HCPCS: 94640; 99283; J8540

== ENCOUNTER 2024-04-01 14:58 | Emergency (ER) | payer MEDICAID ==
[~2024-04-01] VITALS: Ht 162.6 cm; Wt 91.0 kg
[~2024-04-01 14:58] MED LIST changes: +CLIN-194 MT
[2024-04-01] MEDS ORDERED: IBUPROFEN 400MG TABLET PO ONE (17:30)
[2024-04-01] MEDS ORDERED: CALCIUM CHLORIDE 1GM/10ML SYR IV ONE (17:30)
[2024-04-01] MEDS ORDERED: ALBUTEROL (0.083%) 2.5MG/3ML NEB HHN ONE (17:30)
[2024-04-01] MEDS ORDERED: ACETAMINOPHEN 325MG TABLET PO ONE (17:30)
[2024-04-01 17:50] LABS: BASOPHILS % 0.7 % (0.0-2.0); EOSINOPHILS % 1.8 % (0.0-5.0); HEMATOCRIT. 40.1 % (36.0-48.0); HEMOGLOBIN. 13.4 g/dL (12.0-16.0); LYMPHOCYTES % 29.9 % (20.0-50.0); MEAN CORPUSCULAR HEMOGLOBIN 28.4 pg (28.0-32.0); MEAN CORPUSCULAR HGB CONC 33.3 g/dL (31.0-37.0); MEAN CORPUSCULAR VOLUME 85.4 fL (81.0-99.0); MEAN PLATELET VOLUME 8.7 fl (7.4-10.4); NEUTROPHILS % 58.6 % (40.0-76.0); PLATELET 289 x1000/uL (130-400); RED CELL DISTRIBUTION WIDTH 14.1 % (11.6-14.6); WHITE BLOOD COUNT 7.8 x1000/uL (4.5-11.0)
[2024-04-01 17:55] LABS: CHLORIDE 102 mEq/L (98-107); SODIUM 139 mEq/L (136-145)
[2024-04-01 17:56] LABS: CARBON DIOXIDE 30 mEq/L (21-32)
[2024-04-01 17:57] LABS: CALCIUM 9.3 mg/dL (8.7-10.4)
[2024-04-01 18:01] LABS: CREATININE 0.7 mg/dL (0.6-1.0); GLUCOSE 148 mg/dL (70-105)
[2024-04-01 18:02] LABS: TROPONIN I HIGH SENSITIVITY 10 ng/L (3.0-34); UREA NITROGEN BLOOD 6 mg/dL (9-23)
[2024-04-01 18:03] LABS: ALANINE AMINOTRANSFERASE 8 IU/L (10-49); ALBUMIN 4.4 g/dL (3.2-4.8); ASPARTATE AMINOTRANSFERASE 12 IU/L (<34)
[2024-04-01 18:04] LABS: BILIRUBIN DIRECT 0.1 mg/dL (<=3.0); BILIRUBIN TOTAL 0.4 mg/dL (0.1-1.0); PROTEIN TOTAL 7.5 g/dL (6.0-8.3)
[2024-04-01 18:07] LABS: POTASSIUM 2.8 mEq/L (3.5-5.1)
[2024-04-01] MEDS: ALBUTEROL (0.083%) 2.5MG/3ML NEB HHN NR (20:34)
[2024-04-01 20:38] VITALS: PULSE 74; RESP 18; O2SAT 96
[2024-04-01 20:53] LABS: TROPONIN I HIGH SENSITIVITY 9 ng/L (3.0-34)
[2024-04-01] MEDS ORDERED: ALBU05 NEB (22:13)
[2024-04-01] MEDS ORDERED: IPRATROPIUM BROMIDE (0.02%) 0.5MG/2.5ML NEB HHN NR (22:15)
[2024-04-01] MEDS ORDERED: PREDNISONE 20MG TABLET PO NR (22:15)
[2024-04-01] MEDS: IBUPROFEN 400MG TABLET PO NR (22:20)
[2024-04-01] MEDS: POTASSIUM CHLORIDE 20MEQ/PACKET PO NR (22:20)
[2024-04-01] MEDS: CALCIUM CHLORIDE 1GM/10ML SYR IV NR (22:25)
[2024-04-01 22:27] VITALS: TEMP 36.61404
[2024-04-01] MEDS ORDERED: ACETAMINOPHEN 325MG TABLET PO NR (22:30)
[2024-04-01] MEDS ORDERED: CLONIDINE 0.2MG TABLET PO ONE (22:45)
[2024-04-01] MEDS: CLONIDINE 0.1MG TABLET PO NR (23:29)
[2024-04-02 00:03] VITALS: BP 153/102; PULSE 80; RESP 16; O2SAT 96
== END 2024-04-02 00:24 | disposition home or self-care (01) ==
LOC: ER 14:58
DX: J44.1 Chronic obstructive pulmonary disease with (acute) exacerbation (principal); E11.9 Type 2 diabetes mellitus without complications; E78.5 Hyperlipidemia, unspecified; E87.6 Hypokalemia; Z88.1 Allergy status to other antibiotic agents; Z88.0 Allergy status to penicillin; Z79.899 Other long term (current) drug therapy
CPT/HCPCS: 80076; 80048; 83880; 83690; 85025; 85610; 84484; 36415; 71045; 94640; 93005; 99285; J3490; Z7610 ×2

== ENCOUNTER 2024-07-18 17:33 | Inpatient (IN) | payer MEDICAID ==
[~2024-07-18] VITALS: Ht 165.1 cm; Wt 124.5 kg
[~2024-07-18 17:33] MED LIST changes: +ALBU05 NEB; +GABA-1180 MT; -GABA-532 MT
[2024-07-18] MEDS ORDERED: IPRATROPIUM BROMIDE (0.02%) 0.5MG/2.5ML NEB HHN STA (18:31)
[2024-07-18] MEDS ORDERED: ALBUTEROL (0.083%) 2.5MG/3ML NEB HHN STA (18:31)
[2024-07-18 18:57] VITALS: PULSE 80; RESP 22; O2SAT 97
[2024-07-18 19:10] LABS: BASOPHILS % 0.5 % (0.0-2.0); EOSINOPHILS % 0.9 % (0.0-5.0); HEMATOCRIT. 40.7 % (36.0-48.0); HEMOGLOBIN. 13.3 g/dL (12.0-16.0); LYMPHOCYTES % 25.3 % (20.0-50.0); MEAN CORPUSCULAR HEMOGLOBIN 29.3 pg (28.0-32.0); MEAN CORPUSCULAR HGB CONC 32.8 g/dL (31.0-37.0); MEAN CORPUSCULAR VOLUME 89.4 fL (81.0-99.0); MEAN PLATELET VOLUME 8.5 fl (7.4-10.4); MONOCYTES % 9.5 % (2.0-8.0); NEUTROPHILS % 63.8 % (40.0-76.0); PLATELET 280 x1000/uL (130-400); RED BLOOD CELL COUNT 4.55 mill/uL (4.2-5.4); WHITE BLOOD COUNT 9.7 x1000/uL (4.5-11.0)
[2024-07-18 19:12] LABS: CHLORIDE 106 mEq/L (98-107); POTASSIUM 3.8 mEq/L (3.5-5.1); SODIUM 141 mEq/L (136-145)
[2024-07-18 19:13] LABS: CALCIUM 9.2 mg/dL (8.7-10.4); CARBON DIOXIDE 24 mEq/L (21-32)
[2024-07-18] MEDS: METHYLPREDNISOLONE SOD SUCC 125MG/2ML (ACT-O-VIAL) IV STA (19:16)
[2024-07-18 19:18] LABS: CREATININE 0.7 mg/dL (0.6-1.0); GLUCOSE 136 mg/dL (70-105); UREA NITROGEN BLOOD 9 mg/dL (9-23)
[2024-07-18 19:20] LABS: TROPONIN I HIGH SENSITIVITY 7 ng/L (3.0-34)
[2024-07-19] MEDS: HYDROCODONE/ACETAMINOPHEN 5/325MG TABLET PO PRN (01:14)
[2024-07-19 06:55] LABS: CALCIUM 9.8 mg/dL (8.7-10.4); CARBON DIOXIDE 21 mEq/L (21-32); CHLORIDE 98 mEq/L (98-107); POTASSIUM 3.9 mEq/L (3.5-5.1); SODIUM 134 mEq/L (136-145)
[2024-07-19 06:57] LABS: THYROID STIMULATING HORMONE 0.51 uIU/mL (0.55-4.78)
[2024-07-19 07:01] LABS: CREATININE 1.1 mg/dL (0.6-1.0); GLUCOSE 375 mg/dL (70-105); TRIGLYCERIDE 79 mg/dL (0-150); UREA NITROGEN BLOOD 15 mg/dL (9-23)
[2024-07-19 07:02] LABS: LDL CHOLESTEROL 117 mg/dL (5-100)
[2024-07-19 07:03] LABS: CHOLESTEROL 195 mg/dL (<200); HDL CHOLESTEROL 66 mg/dL (>65)
[2024-07-19 07:04] LABS: HEMATOCRIT 36.8 % (36.0-48.0); HEMOGLOBIN 12.5 g/dL (12.0-16.0); MEAN CORPUSCULAR HEMOGLOBIN 29.6 pg (28.0-32.0); PLATELET 287 x1000/uL (130-400); RED BLOOD CELL COUNT 4.23 mill/uL (4.2-5.4); RED CELL DISTRIBUTION WIDTH 14.9 % (11.6-14.6); WHITE BLOOD COUNT 8.7 x1000/uL (4.5-11.0)
[2024-07-19 08:00] VITALS: BP 184/93; PULSE 98; RESP 20; TEMP 36.55848
[2024-07-19] MEDS ORDERED: DEXTROSE 50% WATER 50ML SYRINGE IV PRN (14:00)
[2024-07-19] MEDS ORDERED: NALOXONE HCL 0.4MG/ML VIAL IV PRN (14:15)
[2024-07-19] MEDS ORDERED: METHYLPREDNISOLONE SOD SUCC 40MG/ML (ACT-O-VIAL) IV SCH (14:15)
[2024-07-19 15:19] VITALS: PULSE 85; RESP 20; O2SAT 95
[2024-07-19] MEDS: IPRATROPIUM/ALBUTEROL 0.5-3(2.5)MG/3ML NEB HHN PRN (15:19)
[2024-07-19] MEDS: AMLODIPINE 10MG TABLET PO SCH (15:26)
[2024-07-19] MEDS: ASPIRIN 81MG EC TABLET PO SCH (15:26)
[2024-07-19] MEDS: INSULIN GLARGINE 100 UNITS/ML SUBCUT SCH (15:27)
[2024-07-19 16:00] VITALS: BP 130/83; PULSE 82; RESP 18; TEMP 36.78072
[2024-07-19] MEDS: BLOOD SUGAR DIAGNOSTIC STRIP TEST SCH (16:45)
[2024-07-19] MEDS: FUROSEMIDE 40MG TABLET PO SCH (17:59)
[2024-07-19] MEDS: GABAPENTIN 300MG CAPSULE PO SCH (18:00)
[2024-07-19] MEDS: GEMFIBROZIL 600MG TABLET PO SCH (18:00)
[2024-07-19 19:10] VITALS: BP 178/111; PULSE 78; RESP 17; TEMP 36.8072
[2024-07-19] MEDS: INSULIN LISPRO 100 UNITS/ML SUBCUT SCH (19:54)
[2024-07-19 20:05] VITALS: PULSE 76; RESP 20; O2SAT 97
[2024-07-19] MEDS: IPRATROPIUM/ALBUTEROL 0.5-3(2.5)MG/3ML NEB HHN SCH (20:06)
[2024-07-19 22:00] VITALS: BP 150/62; PULSE 82; RESP 18; TEMP 36.6696; O2SAT 94
[2024-07-19] MEDS: ATORVASTATIN CALCIUM 40MG TABLET PO SCH (22:23)
[2024-07-19] MEDS: HYDRALAZINE HCL 50MG TABLET PO SCH (22:23)
[2024-07-19] MEDS: METHYLPREDNISOLONE SOD SUCC 40MG/ML (ACT-O-VIAL) IV SCH (22:24)
[2024-07-20] VITALS (8 sets, daily range): BP systolic 140–165; BP diastolic 85–100; PULSE 80–95; RESP 18–20; TEMP 35.89176–36.89184; O2SAT 94–98
[2024-07-20] MEDS ORDERED: NIFEDIPINE XL 60MG TAB PO SCH (09:00)
[2024-07-20] MEDS ORDERED: METH4TAB95 MT (10:32)
[2024-07-20] MEDS ORDERED: FAMO20TA8 MT (10:32)
[2024-07-20] MEDS ORDERED: IPRA3AMP9 HHN (10:32)
[2024-07-20] MEDS ORDERED: ALBU18HF2 IH ×2 (10:32→12:31)
== END 2024-07-20 14:45 | disposition home or self-care (01) | DRG 140 ==
LOC: ER 17:33 → UNDOADMIN 22:38 → 5WST 22:38 → EDBEDREQ 22:47 → EDBEDREQSVC 22:47 → EDBEDREQTM 22:47
PROVIDERS: ADMIT Internal Medicine; ATTEND Internal Medicine
PROC: 5A09357 Assistance with Respiratory Ventilation, Less than 24 Consecutive Hours, Continuous Positive Airway Pressure (ICD-10-PCS; principal; 2024-07-20)
DX: J44.1 Chronic obstructive pulmonary disease with (acute) exacerbation (principal); J96.00 Acute respiratory failure, unspecified whether with hypoxia or hypercapnia; I50.9 Heart failure, unspecified; I11.0 Hypertensive heart disease with heart failure; J45.901 Unspecified asthma with (acute) exacerbation; E66.2 Morbid (severe) obesity with alveolar hypoventilation; E11.65 Type 2 diabetes mellitus with hyperglycemia; E78.5 Hyperlipidemia, unspecified; Z79.4 Long term (current) use of insulin; Z88.0 Allergy status to penicillin; Z68.42 Body mass index [BMI] 45.0-49.9, adult
CPT/HCPCS: 36415; 71045; 80048; 80061; 82962; 83036; 83880; 84443; 84484; 85025; 85027; 93306; 94070; 94640; 94664; 98960; 99285; A4606; A4663; J1815; J2919; J2920

== ENCOUNTER 2024-09-24 16:57 | Emergency (ER) | payer MEDICAID ==
[~2024-09-24] VITALS: Ht 190.5 cm; Wt 120.0 kg
[~2024-09-24 16:57] MED LIST changes: -ALBU05 NEB; -ALBU2.5V13 NEB; -ALBU6.7H15 INH; -AMLO10TA80 MT; -AMOX1TAB16 MT; -CLIN-194 MT; +FAMO20TA8 MT; +IPRA3AMP9 HHN; -IPRA3AMP9 NEB; +METH4TAB95 MT
[2024-09-24] MEDS ORDERED: DEXAMETHASONE 2MG TABLET PO ONE (17:30)
[2024-09-24 17:46] LABS: BG BASE EXCESS -3.2 mmol/L (-2.0-3.0); BG CARBOXYHEMOGLOBIN 0.7 % (0.5-1.5); BG DEOXYHEMOGLOBIN 3.6 % (0.0-5.0); BG FRACTION INSPIRED OXYGEN 21; BG HCO3 ACT 20.1 mmol/L (21.0-28.0); BG METHEMOGLOBIN 0.1 % (0.5-1.5); BG OXYGEN SATURATION 96.4 % (94.0-98.0); BG OXYHEMOGLOBIN 95.6 % (94.0-98.0); BG PCO2 30.7 mmHg (32.0-45.0); BG PH 7.433 (7.350-7.450); BG PO2 84.6 mmHg (83.0-108.0); BG SAMPLE SITE LEFT BRACHIAL; BG TOTAL HEMOGLOBIN 13.2 g/dL (12.0-16.0); BG VENT MODE ROOM AIR
[2024-09-24 18:00] VITALS: TEMP 37.2
[2024-09-24 18:12] VITALS: PULSE 90; RESP 18; O2SAT 96
[2024-09-24] MEDS: ALBUTEROL (0.083%) 2.5MG/3ML NEB HHN STA (18:12)
[2024-09-24] MEDS: IPRATROPIUM BROMIDE (0.02%) 0.5MG/2.5ML NEB HHN STA (18:13)
[2024-09-24] MEDS: DEXAMETHASONE 4MG TABLET PO NR (18:52)
[2024-09-24 19:05] LABS: BASOPHILS % 0.6 % (0.0-2.0); EOSINOPHILS % 0.7 % (0.0-5.0); HEMATOCRIT. 36.2 % (36.0-48.0); HEMOGLOBIN. 12.3 g/dL (12.0-16.0); MEAN CORPUSCULAR HEMOGLOBIN 29.1 pg (28.0-32.0); MEAN CORPUSCULAR HGB CONC 33.9 g/dL (31.0-37.0); MEAN CORPUSCULAR VOLUME 85.9 fL (81.0-99.0); MEAN PLATELET VOLUME 9.2 fl (7.4-10.4); MONOCYTES % 7.6 % (2.0-8.0); NEUTROPHILS % 64.1 % (40.0-76.0); PLATELET 296 x1000/uL (130-400); RED BLOOD CELL COUNT 4.22 mill/uL (4.2-5.4); WHITE BLOOD COUNT 8.9 x1000/uL (4.5-11.0)
[2024-09-24 19:12] LABS: CHLORIDE 101 mEq/L (98-107); POTASSIUM 4.1 mEq/L (3.5-5.1); SODIUM 136 mEq/L (136-145)
[2024-09-24 19:13] LABS: CALCIUM 9.6 mg/dL (8.7-10.4); CARBON DIOXIDE 24 mEq/L (21-32)
[2024-09-24 19:18] LABS: CREATININE 0.9 mg/dL (0.6-1.0); GLUCOSE 220 mg/dL (70-105); TROPONIN I HIGH SENSITIVITY 5 ng/L (3.0-34); UREA NITROGEN BLOOD 15 mg/dL (9-23)
[2024-09-24 19:42] VITALS: BP 154/84; PULSE 94; RESP 15; O2SAT 97
[2024-09-24] MEDS ORDERED: ALBU18HF2 IH (19:44)
== END 2024-09-24 20:28 | disposition home or self-care (01) ==
LOC: ER 16:57
DX: R06.02 Shortness of breath (principal); E11.9 Type 2 diabetes mellitus without complications; J44.89 Other specified chronic obstructive pulmonary disease; Z88.0 Allergy status to penicillin; Z79.4 Long term (current) use of insulin; Z79.82 Long term (current) use of aspirin; Z79.899 Other long term (current) drug therapy
CPT/HCPCS: 80048; 85025; 84484; 36415; 71045; 82805; 82375; 99284; 36600; J8540; Z7610 ×2